=== PATIENT | male | born 1955 | race Caucasian/White ===

== ENCOUNTER 2016-12-25 16:24 | Inpatient (IN) ==
[2016-12-25] MEDS ORDERED: methylPREDNISolone 125 MG/2 ML VIAL IVP ONE (16:33)
[2016-12-25] MEDS ORDERED: Ipratropium/Albuterol Neb 3 ML IH ONE (16:33)
[2016-12-25] MEDS ORDERED: Ipratropium/Albuterol Neb 3 ML ONE (16:55)
--- NOTE | 2016-12-25 16:55 | Emergency Department Note ---
Disposition Clinical Impression: Non-STEMI (non-ST elevated myocardial infarction) Dyspnea Qualifiers: Dyspnea type: unspecified Qualified Code(s): R06.00 - Dyspnea, unspecified Disposition: Admitted As Inpatient Condition: Fair Referrals: Sandi Noland CNP [Primary Care Provider] - Forms: ED Satisfaction Letter Time of Disposition: 17:58 SOB HPI - General Chief Complaint: ED Shortness of Breath/Dyspnea Stated Complaint: CJ I think I have Pheumonia Time Seen by Provider: 12/25/16 16:33 Source: patient Mode of arrival: wheelchair Limitations: no limitations Nursing Notes Reviewed: Yes Vital Signs Reviewed: Yes - History of Present Illness 61-year-old who says that hasn't felt well for 4 days with cough congestion says he can't cough anything up. No history of lung problems did smoke in the past but has not smoked for several years. Pt Subjective Complaint: shortness of breath, cough Onset (ago): day(s) Context: recent illness Severity: moderate Consistency/Duration: constant Improves with: nothing Worsens with: nothing Associated symptoms: Reports: fever, cough Treatment prior to arrival: none Cough present: Yes Cough Description: Involuntary - Related Data Home Medications Medication Instructions Recorded Confirmed Chlorthalidone 25 mg PO DAILY 07/08/15 12/25/16 Ergocalciferol (VITAMIN D2) 50,000 unit PO QWEEK 07/08/15 12/25/16 [Vitamin D2 (50,000 UNIT)] FLUoxetine HCl [Prozac] 20 mg PO DAILY 07/08/15 12/25/16 Furosemide [Lasix] 40 mg PO DAILY PRN 07/08/15 12/25/16 Atorvastatin [Lipitor] 40 mg PO HS 12/25/16 12/25/16 Gabapentin [Neurontin] 300 mg PO TID 12/25/16 12/25/16 Insulin Glargine,Hum.rec.anlog 25 unit SQ QPM 12/25/16 12/25/16 [Lantus Solostar] Insulin Glargine,Hum.rec.anlog 35 unit SQ QAM 12/25/16 12/25/16 [Lantus Solostar] Insulin LISPRO [HumaLOG] 0 unit SQ TIDWM 12/25/16 12/25/16 Metformin HCl [Metformin HCl ER] 500 mg PO BID 12/25/16 12/25/16 Metoprolol [Lopressor] 100 mg PO BID 12/25/16 12/25/16 OxyCODONE Immed Rel [Roxicodone 5 5 mg PO QID 12/25/16 12/25/16 MG] Allergies Allergy/AdvReac Type Severity Reaction Status Date / Time No Known Allergies Allergy Verified 07/08/15 12:30 All systems ED: reviewed and negative except as stated. Constitutional: Denies: fever, chills, weakness, weight change Eyes: Denies: eye pain, eye discharge, vision change ENT ED: Denies: ear pain, throat pain, dental pain, hearing loss, epistaxis, congestion, dysphagia Cardiovascular: Denies: chest pain, palpitations, dyspnea on exertion, edema, syncope Respiratory: Reports: cough, dyspnea, wheezes. Denies: hemoptysis, stridor Gastrointestinal: Denies: abdominal pain, nausea, vomiting, diarrhea, constipation, hematemesis, melena, hematochezia Genitourinary: Denies: urgency, dysuria, frequency, hematuria Musculoskeletal: Denies: back pain, neck pain, arthralgia, myalgia Integumentary: Denies: rash, abrasion, lesions Neurological: Denies: headache, weakness, numbness, paresthesias, confusion, abnormal gait, vertigo Psychiatric: Denies: anxiety, depression, suicidal thoughts, homicidal thoughts , auditory hallucinations, visual hallucinations Endocrine: Denies: fatigue Hematological/Lymphatic: Denies: easy bleeding, easy bruising Allergic/Immunologic: Denies: facial swelling, urticaria Past Medical History - Past Medical History Medical history: Reports: diabetes, hyperlipidemia, renal disease, venous stasis Surgical history: Reports: vasectomy Psychiatric history: Reports: no psych history - Social History Smoking Status: Former smoker Smokeless Tobacco Status: Yes (0.5 can per day) Alcohol use: Reports: none Drug use: Reports: none Physical Exam - General Limitations: no limitations General appearance: alert - Head Head exam: atraumatic, normocephalic, normal inspection - Eye Eye exam: Present: normal appearance, PERRL, EOMI - ENT ENT exam: normal exam, normal oropharynx, mucous membranes moist - Neck Neck exam: Present: normal inspection, full ROM, trachea midline - Chest Chest inspection: Present: normal inspection, symmetric chest wall rise - Respiratory Respiratory exam: Present: wheezes - Cardiovascular Cardiovascular exam: Present: regular rate, normal rhythm, normal heart sounds - Abdominal Exam Abdominal exam: Present: soft, Non-Tender. Absent: tenderness, distention, guarding, rebound, rigidity - Extremities Exam Extremities exam: Present: normal inspection, full ROM. Absent: tenderness, pedal edema - Expanded Lower Extremity Exam Neurovascular/Tendon exam: Absent: motor deficit, sensory deficit, tendon deficit Gait: observed and normal - Back Exam Back exam: Present: normal inspection, full ROM. Absent: tenderness - Neurological Exam Neurological exam: Present: alert, oriented X3 - Psychiatric Psychiatric exam: Present: normal affect, normal mood - Skin Skin exam: Present: warm, dry, intact, normal color Course - Reevaluation(s) Reevaluation #1: 61-year-old who comes in with increasing shortness of breath clinically he has increasing dyspnea. PH does show CO2 retention he was placed on BiPAP with marked improvement in his symptoms. Patient denies any chest pain and EKG shows no acute ST segment elevation. The troponin is +0.36 cardiology consult recommends heparin and follow troponins. Time: 17:56 - Consultations Consultation #1: Discussed with Dr. David Titus cardiology heparinize and follow troponins. Time: 17:57 Consultation #2: Discussed with sandra Anguiano. Time: 18:51 Vital Signs Temperature 97.9 F 12/25/16 16:26 Pulse Rate 70 12/25/16 16:26 Respiratory Rate 22 12/25/16 16:26 Blood Pressure 107/64 12/25/16 16:26 O2 Sat by Pulse Oximetry 80 12/25/16 16:26 Temperature 97.9 F 12/25/16 16:26 Pulse Rate 61 12/25/16 17:50 Respiratory Rate 20 12/25/16 17:50 Blood Pressure 133/75 12/25/16 17:50 O2 Sat by Pulse Oximetry 100 12/25/16 17:50 Oxygen Delivery Oxygen Delivery Bipap Shortness of Breath/Dyspnea - Lab Data Result diagrams: 12/25/16 17:12 12/25/16 17:12 Lab Results 12/25/16 12/25/16 12/25/16 Range/Units 17:11 17:12 17:12 WBC 12.2 H (4.3-11.1) K/mcL RBC 4.71 (4.19-5.50) M/mcL Hgb 12.7 L (12.9-16.9) g/dL Hct 43.4 (37.5-50.1) % MCV 92.1 (83.0-100.0) fL MCH 27.0 L (28.0-33.3) pg MCHC 29.3 L (31.6-35.5) g/dL RDW 14.6 H (11.5-14.5) % Plt Count 348 (140-400) K/mcL MPV 10.8 (9.4-12.4) fL Immature Gran % 2.4 (0-4) % Seg Neutrophils % 63.7 % Lymphocytes % 21.6 % Monocytes % 10.3 % Eosinophils % 1.2 % Basophils % 0.8 % Neutrophils # 7.8 (1.6-8.9) K/mcL Lymphocytes # 2.6 (0.6-4.6) K/mcL Monocytes # 1.3 (0.0-1.3) K/mcL Eosinophils # 0.2 (0.0-0.6) K/mcL Basophils # 0.1 (0.0-0.2) K/mcL Nucleated RBCs/100 WBC 0.5 H (0) /100 WBC PT (9.4-12.1) Seconds INR APTT (26.0-36.0) Seconds ABG pH 7.21 L (7.32-7.45) pH Units ABG pCO2 71 H* (35-45) mmHg ABG pO2 82 L (85-104) mmHg ABG HCO3 28.4 H (21-27) mEQ/L ABG Total CO2 30.6 H (20-26) mEq/L ABG O2 Saturation 93 L (95-98) % ABG Base Excess -1.2 (-2.0 to 3.0) mEq/L Liter Flow 8 L/MIN Blood Gas Modality NC Inspired O2 48 % Sodium 135 L (136-145) mEq/L Potassium 5.0 H (3.5-4.5) mEq/L Chloride 99 (98-109) mEq/L Carbon Dioxide 25 (19-29) mEq/L BUN 55 H (8-26) mg/dL Creatinine 2.51 H (0.72-1.25) mg/dL Est GFR ( Amer) 32 L (> 60) Est GFR (Non-Af Amer) 26 L (> 60) BUN/Creatinine Ratio 22 (6-26) Glucose 333 H (70-99) mg/dL Calculated Osmolality 308 H (280-300) Lactic Acid (0.5-2.2) mmol/L Calcium 8.3 L (8.6-10.8) mg/dL Total Bilirubin 0.4 (0.2-1.2) mg/dL Direct Bilirubin 0.1 (0.0-0.5) mg/dL Indirect Bilirubin 0.3 (0.0-1.2) mg/dL AST 42 H (5-34) Units/L ALT 42 (0-55) Units/L Alkaline Phosphatase 130 H (38-126) Units/L Troponin I (0-0.03) ng/mL B-Natriuretic Peptide (0-100) pg/mL Serum Total Protein 7.8 (6.0-8.3) g/dL Albumin 2.7 L (3.5-5.0) g/dL Globulin 5.1 H (2.4-3.5) g/dL Albumin/Globulin Ratio 0.5 L (1.1-2.2) 12/25/16 12/25/16 12/25/16 Range/Units 17:12 17:12 17:12 WBC (4.3-11.1) K/mcL RBC (4.19-5.50) M/mcL Hgb (12.9-16.9) g/dL Hct (37.5-50.1) % MCV (83.0-100.0) fL MCH (28.0-33.3) pg MCHC (31.6-35.5) g/dL RDW (11.5-14.5) % Plt Count (140-400) K/mcL MPV (9.4-12.4) fL Immature Gran % (0-4) % Seg Neutrophils % % Lymphocytes % % Monocytes % % Eosinophils % % Basophils % % Neutrophils # (1.6-8.9) K/mcL Lymphocytes # (0.6-4.6) K/mcL Monocytes # (0.0-1.3) K/mcL Eosinophils # (0.0-0.6) K/mcL Basophils # (0.0-0.2) K/mcL Nucleated RBCs/100 WBC (0) /100 WBC PT (9.4-12.1) Seconds INR APTT (26.0-36.0) Seconds ABG pH (7.32-7.45) pH Units ABG pCO2 (35-45) mmHg ABG pO2 (85-104) mmHg ABG HCO3 (21-27) mEQ/L ABG Total CO2 (20-26) mEq/L ABG O2 Saturation (95-98) % ABG Base Excess (-2.0 to 3.0) mEq/L Liter Flow L/MIN Blood Gas Modality Inspired O2 % Sodium (136-145) mEq/L Potassium (3.5-4.5) mEq/L Chloride (98-109) mEq/L Carbon Dioxide (19-29) mEq/L BUN (8-26) mg/dL Creatinine (0.72-1.25) mg/dL Est GFR ( Amer) (> 60) Est GFR (Non-Af Amer) (> 60) BUN/Creatinine Ratio (6-26) Glucose (70-99) mg/dL Calculated Osmolality (280-300) Lactic Acid 2.5 H (0.5-2.2) mmol/L Calcium (8.6-10.8) mg/dL Total Bilirubin (0.2-1.2) mg/dL Direct Bilirubin (0.0-0.5) mg/dL Indirect Bilirubin (0.0-1.2) mg/dL AST (5-34) Units/L ALT (0-55) Units/L Alkaline Phosphatase (38-126) Units/L Troponin I 0.36 H* (0-0.03) ng/mL B-Natriuretic Peptide 318 H (0-100) pg/mL Serum Total Protein (6.0-8.3) g/dL Albumin (3.5-5.0) g/dL Globulin (2.4-3.5) g/dL Albumin/Globulin Ratio (1.1-2.2) 12/25/16 Range/Units 17:12 WBC (4.3-11.1) K/mcL RBC (4.19-5.50) M/mcL Hgb (12.9-16.9) g/dL Hct (37.5-50.1) % MCV (83.0-100.0) fL MCH (28.0-33.3) pg MCHC (31.6-35.5) g/dL RDW (11.5-14.5) % Plt Count (140-400) K/mcL MPV (9.4-12.4) fL Immature Gran % (0-4) % Seg Neutrophils % % Lymphocytes % % Monocytes % % Eosinophils % % Basophils % % Neutrophils # (1.6-8.9) K/mcL Lymphocytes # (0.6-4.6) K/mcL Monocytes # (0.0-1.3) K/mcL Eosinophils # (0.0-0.6) K/mcL Basophils # (0.0-0.2) K/mcL Nucleated RBCs/100 WBC (0) /100 WBC PT 13.5 H (9.4-12.1) Seconds INR 1.2 APTT 28.0 (26.0-36.0) Seconds ABG pH (7.32-7.45) pH Units ABG pCO2 (35-45) mmHg ABG pO2 (85-104) mmHg ABG HCO3 (21-27) mEQ/L ABG Total CO2 (20-26) mEq/L ABG O2 Saturation (95-98) % ABG Base Excess (-2.0 to 3.0) mEq/L Liter Flow L/MIN Blood Gas Modality Inspired O2 % Sodium (136-145) mEq/L Potassium (3.5-4.5) mEq/L Chloride (98-109) mEq/L Carbon Dioxide (19-29) mEq/L BUN (8-26) mg/dL Creatinine (0.72-1.25) mg/dL Est GFR ( Amer) (> 60) Est GFR (Non-Af Amer) (> 60) BUN/Creatinine Ratio (6-26) Glucose (70-99) mg/dL Calculated Osmolality (280-300) Lactic Acid (0.5-2.2) mmol/L Calcium (8.6-10.8) mg/dL Total Bilirubin (0.2-1.2) mg/dL Direct Bilirubin (0.0-0.5) mg/dL Indirect Bilirubin (0.0-1.2) mg/dL AST (5-34) Units/L ALT (0-55) Units/L Alkaline Phosphatase (38-126) Units/L Troponin I (0-0.03) ng/mL B-Natriuretic Peptide (0-100) pg/mL Serum Total Protein (6.0-8.3) g/dL Albumin (3.5-5.0) g/dL Globulin (2.4-3.5) g/dL Albumin/Globulin Ratio (1.1-2.2) Critical Care Time Critical Care Time: Yes Total Critical Care Time: 30 Attestation: The high probability of a clinically significant, sudden or life threatening deterioration of the [cardiovascular] system(s) required my full and direct attention, intervention and personal management. The aggregate critical care time was [30] minutes. This time is in addition to time spent performing reported procedures but includes the following: [x] Data Review and interpretation [x] Patient assessment and monitoring of vital signs [x] Documentation [x] Medication orders and management
[2016-12-25 16:59] LABS: ABG TCO2 30.6 mEq/L (20-26)
[2016-12-25 17:21] LABS: ABG Base Excess -1.2 mEq/L (-2.0 to 3.0); ABG HCO3 28.4 mEQ/L (21-27); ABG Oxygen Saturation 93 % (95-98); ABG PH 7.21 pH Units (7.32-7.45); ABG PO2 82 mmHg (85-104)
[2016-12-25 17:25] LABS: ABG PCO2 71 mmHg (35-45)
[2016-12-25 17:26] LABS: Blood Gas FiO2 48 %; Blood Gas Liter Flow 8 L/MIN
[2016-12-25 17:27] LABS: INR 1.2; Prothrombin Time 13.5 Seconds (9.4-12.1)
[2016-12-25 17:32] LABS: Basophils # 0.1 K/mcL (0.0-0.2); Basophils % 0.8 %; Eosinophils # 0.2 K/mcL (0.0-0.6); Eosinophils % 1.2 %; Hematocrit 43.4 % (37.5-50.1); Hemoglobin 12.7 g/dL (12.9-16.9); Immature Granulocytes % 2.4 % (0-4); Lymphocytes # 2.6 K/mcL (0.6-4.6); Lymphocytes % 21.6 %; Mean Corpuscular HGB Conc 29.3 g/dL (31.6-35.5); Mean Corpuscular Volume 92.1 fL (83.0-100.0); Mean Platelet Volume 10.8 fL (9.4-12.4); Monocytes # 1.3 K/mcL (0.0-1.3); Monocytes % 10.3 %; Neutrophils # 7.8 K/mcL (1.6-8.9); Nucleated Red Blood Cells 0.5 /100 WBC (0); Platelet Count 348 K/mcL (140-400); Red Blood Count 4.71 M/mcL (4.19-5.50); Red Cell Distribution Width 14.6 % (11.5-14.5); Segmented Neutrophils % 63.7 %
[2016-12-25 17:51] LABS: Albumin 2.7 g/dL (3.5-5.0); Albumin/Globulin Ratio 0.5 (1.1-2.2); Bilirubin,Direct 0.1 mg/dL (0.0-0.5); Bilirubin,Indirect 0.3 mg/dL (0.0-1.2); Bilirubin,Total 0.4 mg/dL (0.2-1.2); Calcium 8.3 mg/dL (8.6-10.8); Globulin 5.1 g/dL (2.4-3.5); Total Protein 7.8 g/dL (6.0-8.3)
[2016-12-25] MEDS ORDERED: *HR* Heparin 5,000 UNIT/ML VIAL IVP PRN ×2 (17:53)
[2016-12-25] MEDS ORDERED: *HR* Heparin 5,000 UNIT/ML VIAL IVP ONE (17:53)
[2016-12-25] MEDS ORDERED: Heparin 25,000 UNIT/500 ML D5W 25,000 UNIT/500 ML MLS IVC SCH (18:00)
[2016-12-25 19:41] LABS: VBG HCO3 30.6 mEq/L (21-27); VBG PH 7.23 pH Units (7.32-7.42)
[2016-12-25] MEDS ORDERED: Naloxone 0.4 MG/ML INJ IVP PRN (20:54)
[2016-12-25] MEDS ORDERED: Furosemide 40 MG TABLET PO PRN (20:54)
[2016-12-25] MEDS ORDERED: Dextrose Gel 15 GM PO PRN ×2 (20:56)
[2016-12-25] MEDS ORDERED: D5% in Water 1,000 ML IVC PRN (20:56)
[2016-12-25] MEDS ORDERED: *HR* Dextrose 50 % in Water (Syg) 50 ML SYRINGE IVP PRN (20:56)
--- NOTE | 2016-12-25 20:59 | Internal Med History&Physical ---
Date of Encounter: 12/25/16 Time of Encounter: 20:58 Assessment and Plan (1) Non-STEMI (non-ST elevated myocardial infarction) Current visit: Yes Status: Acute consult cards, now on heparin gtt, trend trop, Check TTE, NPO in case procedure such as LHC in the a.m (2) DMII (diabetes mellitus, type 2) Current visit: Yes Status: Acute ISS, continue insulin, half dose for evening given NPO overnight Qualifiers: Diabetes mellitus complication status: without complication Qualified Code( s): E11.9 - Type 2 diabetes mellitus without complications; Z79.4 - residential ( current) use of insulin (3) SOB (shortness of breath) Current visit: Yes Status: Acute suspect chest pain equivalent ? NIPPV in the ED - supportive. johnathon (4) Morbid obesity Current visit: No Status: Chronic education provided Internal Medicine - H&P: HPI Chief complaint: Shortness of breath History of present illness: Mr. Stone is a 61 year old male history of diabetes type 2, hypertension, depression, who presents with acute onset shortness of breath in the last few days since Thursday. He felt like he was getting cold. He denies any active chest pain or chest pain prior chest chest subjective shortness of breath. At baseline he uses a wheelchair BOUND, and has been having increasing shortness of breath on exertion when he was transferring from wheelchair to bed. Review of systems noted nonspecific abdominal cramps, spasms that he has noted. Family reported history of sepsis in the past. In the ED EKG reviewed by self demonstrated rate of 70, T-wave depression abnormal EKG. Trop in the ED was elevated 0.36. This x-ray with mild atelectasis on the right . ED spoke with cardiology who recommended an STEMI management with heparin drip. Past Med Surg Social Fam HX - Past Medical History Medical history: diabetes, hyperlipidemia, renal disease, venous stasis Psychiatric history: no psych history - Past Surgical History Surgical History: vasectomy - Social History Smoking Status: Former smoker Smokeless Tobacco Status: Yes (0.5 can per day) Alcohol use: none Drug use: none - Additional Family History Additional family history: Hypertension Internal Medicine - H&P: Meds Chlorthalidone 25 mg PO DAILY 07/08/15 [History] Ergocalciferol (VITAMIN D2) [Vitamin D2 (50,000 UNIT)] 50,000 unit PO QWEEK [History] FLUoxetine HCl [Prozac] 20 mg PO DAILY 07/08/15 [History] Furosemide [Lasix] 40 mg PO DAILY PRN 07/08/15 [History] Atorvastatin [Lipitor] 40 mg PO HS 12/25/16 [History] Gabapentin [Neurontin] 300 mg PO TID 12/25/16 [History] Insulin Glargine,Hum.rec.anlog [Lantus Solostar] 25 unit SQ QPM 12/25/16 [ History] Insulin Glargine,Hum.rec.anlog [Lantus Solostar] 35 unit SQ QAM 12/25/16 [ History] Insulin LISPRO [HumaLOG] 0 unit SQ TIDWM 12/25/16 [History] Metformin HCl [Metformin HCl ER] 500 mg PO BID 12/25/16 [History] Metoprolol [Lopressor] 100 mg PO BID 12/25/16 [History] OxyCODONE Immed Rel [Roxicodone 5 MG] 5 mg PO QID 12/25/16 [History] Allergies No Known Allergies Allergy (Verified 07/08/15 12:30) All Systems PM: A 10-system review of systems was performed and is negative for pertinent findings except as documented above in the HPI. Review of systems: ROS 14 point review of systems reviewed as best as possible given presentation. Pertinent positive or negative as per HPI or otherwise reviewed as negative - Constitutional Vitals: Temp Pulse Resp BP Pulse Ox 97.9 F 61 25 150/85 95 12/25/16 16:26 12/25/16 17:50 12/25/16 20:10 12/25/16 19:19 12/25/16 20:10 Exam: General - AAO x 3. Morbid obesity Psych - Appropriate affect/speech. No agitation Eyes - LYSSA. Eye lids intact. No scleral icterus ENT - Oral mucosa pink, dentition intact. External ear clear/dry/intact. No thyromegaly Lymphatics - No cervical/inguinal lympadenopathy Neuro - No gross peripheral or central neuro deficits with intact CN 2-12 exam Heart - Sinus. RRR. S1 and S2 present. No added HS/murmurs appreciated. No elevated JVD appreciated. No calf swellings/erythema Lung - Adequate air entry b/l, No crackes/wheezes appreciated GI - Soft, non-tender. No hepatosplenomegaly/ascities. BS+ - No CVA/suprapubic tenderness or palpable bladder distension Skin - venous stasis changes on lower extremity MSK - Joints with normal ROM. No joint swellings Internal Med - H&P Results - Labs CBC & Chem 7: 12/25/16 17:12 12/25/16 17:12 - ABG Interpretation ABG results: 12/25/16 19:30 VBG pH 7.23 L VBG pCO2 73 H VBG pO2 35 VBG HCO3 30.6 H
[2016-12-25] MEDS ORDERED: Insulin LISPRO 300 UNITS/3 ML VIAL SQ SCH (21:00)
[2016-12-25] MEDS: Gabapentin 300 MG CAPSULE PO SCH (21:30)
[2016-12-25] MEDS: Metoprolol 100 MG TABLET PO SCH (21:30)
[2016-12-25] MEDS: *HR* OxyCODONE Immed Rel 5 MG TABLET PO SCH (21:30)
[2016-12-26 06:45] LABS: Hematocrit 41.5 % (37.5-50.1); Hemoglobin 12.5 g/dL (12.9-16.9); Mean Corpuscular HGB Conc 30.1 g/dL (31.6-35.5); Mean Corpuscular Hemoglobin 27.3 pg (28.0-33.3); Mean Corpuscular Volume 90.6 fL (83.0-100.0); Mean Platelet Volume 10.8 fL (9.4-12.4); Platelet Count 360 K/mcL (140-400); Red Blood Count 4.58 M/mcL (4.19-5.50); Red Cell Distribution Width 14.6 % (11.5-14.5)
[2016-12-26 06:56] LABS: Calcium 8.4 mg/dL (8.6-10.8); Magnesium 2.1 mg/dL (1.6-2.6)
[2016-12-26 06:59] LABS: Potassium 6.2 mEq/L (3.5-4.5)
[2016-12-26] MEDS ORDERED: 0.9 % Sodium Chloride 1,000 ML ONE (07:41)
[2016-12-26] MEDS: Insulin LISPRO 300 UNITS/3 ML VIAL SQ SCH ×4 (07:44→21:50)
[2016-12-26] MEDS ORDERED: 0.9 % Sodium Chloride 1,000 ML IVC SCH ×2 (07:45→13:45)
[2016-12-26] MEDS: *HR* OxyCODONE Immed Rel 5 MG TABLET PO SCH ×4 (07:51→21:47)
[2016-12-26] MEDS: Metoprolol 100 MG TABLET PO SCH (07:52)
[2016-12-26] MEDS: Gabapentin 300 MG CAPSULE PO SCH ×3 (07:52→21:48)
[2016-12-26] MEDS: FLUoxetine 20 MG CAPSULE PO SCH (07:52)
[2016-12-26] MEDS: Insulin DETEMIR 100 UNIT/ML X5UNITS SQ SCH (08:02)
[2016-12-26] MEDS ORDERED: Perflutren Lipid Microsphere 1.3 ML in 0.9 % Sodium Chloride 8.7 ML IVP ONE (08:46)
[2016-12-26] MEDS ORDERED: Insulin DETEMIR 100 UNIT/ML X5UNITS SQ SCH ×2 (09:00→21:00)
[2016-12-26] MEDS ORDERED: Insulin LISPRO 300 UNITS/3 ML VIAL SQ SCH (10:15)
--- NOTE | 2016-12-26 11:15 | Cardiology Consult Note ---
<Jigar Tierney - Last Filed: 12/26/16 14:29> Date of Encounter: 12/26/16 Time of Encounter: 10:30 Assessment and Plan (1) Elevated troponin Current Visit: Yes Status: Acute Patient has elevated troponin of 0.36 on admission. He denies any recent chest pain or discomfort. This is in the setting of acute respiratory failure and acute kidney injury. Also patient has symptoms and findings that could suggest heart failure. which could also be a reason for elevated troponins. Troponins are trending down. No significant EKG changes. However notable for low voltage. PAtient dose have multiple risk factors for CAD including HTN, HLD, DM, and 35 pack year history of smoking. Patient is severely deconditioned at baseline with very little activity as well. Recommendations: Discontinue heparin gtt. Patient is high risk for CAD. We would recommend Lexiscan once his pulmonary issues have resolved. Patient takes ASA at home and we will resume this . Discontinue metoprolol given the patients bradycardia. Start Coreg 12.5 mg BID TTE is poor quality and nondiagnositic. continue to reduce modifiable risk factors such as HTN, HLD, and DM control. continue lipitor. Recommend a heart healthy diet with fluid and sodium restriction. Patient is severely deconditioned. Would recommend PT/OT consult Patient is unsure of what testing he has had in the past. Recommend obtaining records of any prior testing from [facility] Thank you for the consultation and the opportunity to participate in this patients care. We will continue to follow along with you. (2) Acute heart failure Current Visit: Yes Status: Suspected Patient is having orthopnea, worsening lower extremity edema and has an elevated BNP on admission. Caoncerning for possible heart failure. However picture is complicated as he has acute kidney injury and reports decreased urine output at home. Patient is hypervolemic on exam. Recommendations: Discontinue IV fluids. Start lasix 40 mg IV BID. I suspect his renal injury is related to his volume overloaded state and should improve with diuresis. continue to follow renal function closely. Continue to monitor and replace electrolytes as needed. Fluid restriction of 2L daily, strict I's and O's and elevation of the feet have been ordered as well. TTE is poor quality and non diagnostic. Patient also had a TTE with definity in June 2016 which was also nondiagnostic. Qualifiers: Heart failure type: unspecified heart failure type Qualified Code(s): I50.9 - Heart failure, unspecified (3) Acute hypoxemic respiratory failure Current Visit: Yes Status: Acute Etiology is likely multifactorial. Patient has 35 pack year of smoking use. 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 Would suspect COPD. Also suspect sleep disorder breathing and possibly OHS as well. Additionally patient may have a viral URI vs. bronchitis given his recent sick contacts and exposures. Patient reports significant wheezing at home as well. However lungs are clear on exam currently. Although exam is somewhat limited by habitus. If not improving may also consider PE given the patient lower extremity edema. May consider a VQ scan. Would benefit from outpatient PFT. recommend nocturnal pulse ox. management per primary team. (4) Acute respiratory failure with hypercapnia Current Visit: Yes Status: Acute patient has acute on chronic respiratory failure with hypercapnia and hypoxemia. Etiology is likely multifactorial as stated above. (5) Bradycardia Current Visit: Yes Status: Acute etiology unclear. possibly from metoprolol. Dose not currently seem to be symptomatic ( unclear as he reported some mild dizziness at home and has LUISITO) We will DC Metoprolol and add coreg to his regimen instead. check TSH. continue telemetry. (6) Hypertension Current Visit: Yes Status: Acute currently above goal ( systolic 135 for diabetic). DC metoprolol due to bradycardia. Start coreg 12.5 mg BID. Start Imdur 30 mg daily. continue to monitor closely. Qualifiers: Qualified Code(s): I10 - Essential (primary) hypertension (7) Uncontrolled diabetes mellitus Current Visit: Yes Status: Acute Last Hg A1C on 07/31/16 was 11.1. serum glucose also markedly elevated this admission. Management per primary team. Qualifiers: Qualified Code(s): E11.65 - Type 2 diabetes mellitus with hyperglycemia (8) Acute kidney injury Current Visit: Yes Status: Acute etiology unclear at this time. possibly from volume overload. SCr is trending down. If not improving may consider nephrology consultation. continue to monitor closely. (9) Hyperkalemia Current Visit: Yes Status: Acute K currently 6.2 patient has received Kayexalate and insulin this AM. Recommend following closely. If still elevated would repeat EKG to make sure there are no EKG changes. (10) Respiratory acidosis Current Visit: Yes Status: Acute patient is alert and dose not exhibit signs of CO2 narcosis at this time. would consider having patient wear bipap while asleep. (11) Weight gain Current Visit: Yes Status: Acute PAtient has had deconditioning after previous hospitalization last year. Likely from a combination of poor activity, poor diet and volume overload. recommend weight loss. (12) Physical deconditioning Current Visit: Yes Status: Acute recommend PT/OT consult (13) Tobacco abuse Current Visit: Yes Status: Acute patient is a former smoker with 35 pack year history. He state he quit 10 years ago. However he continues to use chewing tobacco. advise cessation. (14) Morbid obesity with BMI of 50.0-59.9, adult Current Visit: Yes Status: Acute advise weight loss (15) DVT prophylaxis Current Visit: Yes Status: Acute We will start the patient on SQ heparin. Discussion w patient/family: The assessment and plan as outlined above was discussed with the patient and/or family members who expressed understanding and agreement. All questions were answered. Thank you for involving us in the care of your patient. Please call with any questions. History of Present Illness Consult date: 12/26/16 Requesting physician: Rivas Burden Consult reason: elevated troponin/ possible NSTEMI. Chief complaint: dyspnea History of present illness: Mr. Guadalupe is a 61 year old male with past medical history of uncontrolled IDDM, HTN, HLD. Who was admitted to [facility] on 12/25/16 with acute respiratory failure and elevated troponins. Today Mr. Guadalupe states that He was began having onset of dyspnea on Thursday. He states that this happened after being exposd to family members with upper respiratory symptoms on Thursday. HE states that he had a sore throat, rhinorhea , sinus pressure and developed wheezing, cough ( productive), and dyspnea at rest and worsened by exertion. . He also admits to increased lower extremity edema over the past 3 weeks that did not resolved with lasix. He admits to orthopnea. He sleeps in a hospital bed and has had to increase the elevation over the past few days. He denies any chest pain or discomfort. He denies any syncope, presyncope, palpitations. HE admits to some mild dizziness 3 days ago after standing. The dizziness resolved very quickly and he has had none since. He denies any fever, chills or night sweats. Denies hemoptysis. He states that his overall health has declined over the past year. He has become inactive. He has had exertional dyspnea over the past 6 months that has been progressively worsening. He states he gets out of breath going to the bathroom now. He states that he has also gained approximately 50 pounds over the past year. Past Med Surg Social Fam HX - Past Medical History Medical history: diabetes, hyperlipidemia, renal disease, venous stasis Psychiatric history: no psych history - Past Surgical History Surgical History: vasectomy - Social History Smoking Status: Former smoker Packs per day: 1ppd for 35 years quit 10 years ago but still uses oral tobacco. Smokeless Tobacco Status: Yes (0.5 can per day) Alcohol use: none Drug use: none Occupational status: previously employed Current living situation: Home, With Family Activity Level: Wheelchair bound, Mostly sedentary Recent Out of Country Travel Within the Last 8 Weeks: No Exposure or Possible Exposure to Illness During Travel: Yes (family had URI symptoms on thursday. 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 - Family History Mother Hx Family Cancer: Yes (unknown which type) Father Hx Family Medical Disorders: Yes (COPD) Medications and Allergies Chlorthalidone 25 mg PO DAILY 07/08/15 [History] Ergocalciferol (VITAMIN D2) [Vitamin D2 (50,000 UNIT)] 50,000 unit PO QWEEK [History] FLUoxetine HCl [Prozac] 20 mg PO DAILY 07/08/15 [History] Furosemide [Lasix] 40 mg PO DAILY PRN 07/08/15 [History] Atorvastatin [Lipitor] 40 mg PO HS 12/25/16 [History] Gabapentin [Neurontin] 300 mg PO TID 12/25/16 [History] Insulin Glargine,Hum.rec.anlog [Lantus Solostar] 25 unit SQ QPM 12/25/16 [ History] Insulin Glargine,Hum.rec.anlog [Lantus Solostar] 35 unit SQ QAM 12/25/16 [ History] Insulin LISPRO [HumaLOG] 0 unit SQ TIDWM 12/25/16 [History] Metformin HCl [Metformin HCl ER] 500 mg PO BID 12/25/16 [History] Metoprolol [Lopressor] 100 mg PO BID 12/25/16 [History] OxyCODONE Immed Rel [Roxicodone 5 MG] 5 mg PO QID 12/25/16 [History] Allergies No Known Allergies Allergy (Verified 07/08/15 12:30) All Systems Review: A 10-system review of systems was performed and is negative for pertinent findings except as documented above in the HPI. - Constitutional Constitutional: fatigue, weight gain (50 pounds in 1 year. ), no anorexia, no frequent falls, no malaise, no night sweats - EENT Eyes: no blurred vision, no loss of vision, no pain Nose, mouth and throat: sinus pain (mild), sore throat (mild), no bleeding gums , no dysphagia, no epistaxis, no mouth pain - Cardiovascular Cardiovascular: as per HPI, dyspnea at rest, dyspnea on exertion, orthopnea, no chest pain at rest, no chest pain with exertion, no irregular heart rhythm, no lightheadedness, no palpitations, no syncope - Respiratory Respiratory: other (as per HPI) - Gastrointestinal Gastrointestinal: abdominal pain (with coughing only. mild. ) - Genitourinary Genitourinary: other (urine color was dark. subjective decrease in output. ), no dysuria, no hematuria - Integumentary Integumentary: no erythema, no rash, no unusual bruising - Neurological Neurological: dizziness (mild. after staning 3 days ago.), no abnormal speech, no syncope, no tingling - Hematological/Lymphatic Hematologic/Lymphatic: no easy bleeding, no easy bruising Physical Examination General: Conversant, No Apparent Distress HEENT: Atraumatic, Normocephaly, Mucus Membranes Moist, Other (poor dentition. ) Neck: No JVD, Normal carotid pulses, Other (large circumference of the chest. ) Cardiac: Reg Rate and Rhythm, Normal S1 and S2, No Murmur, Other (exam is limited by habitus. Distant heart sounds. ) Lungs: Normal Breath Sounds, No Wheeze, Rales, Rhonchi, Other (globally diminished. ) Neuro: Alert and responsive, No focal deficits noted Abdomen: Soft, Non-Tender, Other (mildly distended. Nontender. ) Skin: Other (appears to have stasis dermatitis on the BL LE. with chronic venous stasis changes. ) Extremities: No Clubbing, No Cyanosis, Other (HE has 2+ pittng edema to the level of the knee bilaterally. ) Results 12/26/16 06:17 12/26/16 11:53 Lab Results 12/26/16 08:01 APTT 43.5 H - Imaging and Cardiology Chest Xray: report reviewed, image reviewed Echo: pending - EKG Interpretation EKG results cardiology: personally reviewed, other (sinus rhythm. Has none specific T wave changes in V2 and V3. Notable for low voltage. No ST segment changes.) Consult Discharge Plan - Plan Referrals: Sandi Noland, GEOLOGICAL DRAFTER [Primary Care Provider] - 01/05/17 10:40 am <Navarro Graham - Last Filed: 12/27/16 00:34> Date of Encounter: 12/26/16 Assessment and Plan Discussion w patient/family: The assessment and plan as outlined above was discussed with the patient and/or family members who expressed understanding and agreement. All questions were answered. Thank you for involving us in the care of your patient. Please call with any questions. History of Present Illness History of present illness: Mr. Guadalupe is a 61 year old male All Systems Review: A 10-system review of systems was performed and is negative for pertinent findings except as documented above in the HPI. Physical Examination Vital Signs, Last 4 Hours Temp Pulse Resp BP Pulse Ox 12/26/16 11:26 97.6 F 61 16 157/83 95 Results 12/26/16 06:17 12/26/16 14:04 Lab Results 12/26/16 12/26/16 12/26/16 08:01 11:53 11:53 APTT 43.5 H Sodium 136 Potassium 5.1 H D Chloride 101 Carbon Dioxide 28 BUN 62 H Creatinine 2.12 H Glucose 423 H Calcium 8.5 L Troponin I 0.16 H* - Attending Attestation Pt independently seen and examined, discussed with housestaff, [place] previous records from [facility]. Pt complains of increased shortness of breath, lower extremity edema, and non producdtive coujgh. He reports increasing orthopnea, up to three pillows deangelo evening before admission. Patient reports was unable to walk from sofa to bathroom due to shortness of breath. Shorness of breath has improved since hospital admission. IMP/plan 1. Elevated troponin: Most consisent with type two AK, multple risk factor for CAD, will need stress imaging to evaluate ischemic substrateddd 2. Bra4. dtcardia - will dc metoprolol, begin carvediolol, monitor heart rate response. 3. Hyperension, not well controlled, monitor with increased diuresis 4. Shorntess of breath, improving with diuresis, concerned he may have had PE, CT avoided due to renal risk of contrast, will order lower ext dopplers to rule out DVT 5 Acute on chronic renal faillure, improving 6 Elevated BNP, echocardiogram non diagnostic, very poor cardiac visualiazation , 7 Uncontrolled diabete with markedly elevated blood sugars 8. Morbid obesity, with fifty pound weight gain over last year. 9. Undiagnosed sleep apnea
[2016-12-26 12:27] LABS: VBG HCO3 29.8 mEq/L (21-27)
[2016-12-26 12:31] LABS: VBG PH 7.19 pH Units (7.32-7.42)
[2016-12-26 12:43] LABS: Calcium 8.5 mg/dL (8.6-10.8)
[2016-12-26 12:44] LABS: Potassium 5.1 mEq/L (3.5-4.5)
[2016-12-26 12:54] LABS: Hemoglobin A1C 11.9 %
[2016-12-26] MEDS ORDERED: Insulin Regular, Human 100 UNIT/ML IV PRN (13:25)
[2016-12-26] MEDS ORDERED: *HR* Dextrose 50 % in Water (Syg) 50 ML SYRINGE IVP PRN (13:25)
[2016-12-26] MEDS ORDERED: D5% in 0.45% NACL 1,000 ML IVC PRN (13:25)
[2016-12-26] MEDS: Furosemide 40 MG/4 ML VIAL IVP SCH ×2 (13:27→17:05)
[2016-12-26] MEDS: Isosorbide MONOnitrate (24 HR) 30 MG TAB.ER.24H PO SCH (13:27)
[2016-12-26] MEDS ORDERED: Insulin Human Regular 100 UNIT in 0.9 % Sodium Chloride 100 ML IVC SCH (13:30)
[2016-12-26 14:42] LABS: Calcium 8.7 mg/dL (8.6-10.8); Potassium 5.1 mEq/L (3.5-4.5)
--- NOTE | 2016-12-26 14:45 | Electrocardiograph Report ---
[place] [id number] Test Date: 2016-12-25 Pat Name: Gold Stone Department: 102 Room: 2NE17 Gender: M Prosthodontist: Yenny : 1955 Requested By: Bessy Miller Order Number: [id number] Reading MD: Ban Titus Measurements Intervals [place] Rate: 70 P: -66 VA: 175 QRS: 51 QRSD: 94 T: 27 QT: 388 QTc: 408 Interpretive Statements SINUS RHYTHM INDETERMINATE AXIS LOW QRS VOLTAGE [QRS DEFLECTION < 0.5/1.0 mV IN LIMB/CHEST LEADS] POSSIBLE ANTERIOR MYOCARDIAL INFARCTION [30 ms Q WAVE IN V3/V4, OR R < 0.2 mV IN V4], OF INDETERMINATE AGE Electronically Signed On 12-26-2016 14:43:43 EDT by Ban Titus
[2016-12-26] MEDS: *HR* Heparin 5,000 UNIT/ML VIAL SQ SCH ×2 (17:05→21:48)
--- NOTE | 2016-12-26 17:06 | Internal Med Progress Note ---
Date of Encounter: 12/26/16 Time of Encounter: 10:30 - Assessment and plan (1) Non-STEMI (non-ST elevated myocardial infarction) Current Visit: Yes Status: Acute Assessment and plan: Patient presented with shortness of breath, possible anginal equivalent. Noted to have troponin elevation, peak troponin at 0.36. Has been started on IV heparin drip for anticoagulation. Cardiology consult noted. Held anticoagulation for now. Trying to obtain records from [facility]. Possible nuclear stress test when medically stable. Continue telemetry monitoring and trend troponins. Echocardiogram is a technically difficult and poor quality study, however shows possibly dilated left ventricle with decreased systolic function, mild diastolic dysfunction. (2) Hyperglycemia due to type 2 diabetes mellitus Current Visit: Yes Status: Acute Assessment and plan: Patient is noted to be noncompliant to diet and lifestyle modifications as an outpatient. Hemoglobin A1c noted to be 11.5%. Patient fails to respond to subcutaneous insulin. We will start him on IV insulin drip with every hour Accu -Cheks and IV hydration at this time. Keep nothing by mouth until blood sugars improved. VBG shows decreased the itch at 7.1 although patient has a complicated picture with likely respiratory and metabolic acidosis. Check serum beta hydroxybutyrate and monitor BMP every 4 hourly. Monitor vital signs closely and urine output. Patient is awaiting transfer to stepdown unit to continue insulin drip/DKA protocol. High risk for complications. Qualifiers: Diabetes mellitus mcc insulin use: with mcc use Qualified Code( s): E11.65 - Type 2 diabetes mellitus with hyperglycemia; Z79.4 - FPC ( current) use of insulin (3) Respiratory acidosis Current Visit: Yes Status: Acute Assessment and plan: Patient is noted to have acute hypoxic and hypercapnic respiratory failure, likely related to underlying CHF/obesity hypoventilation. Continue supplemental oxygen, will use noninvasive positive pressure ventilation and monitor ABG. Home oxygen evaluation prior to discharge. (4) Chronic kidney disease Current Visit: Yes Status: Chronic Qualifiers: Chronic kidney disease stage: stage 3 (moderate) Qualified Code(s): N18.3 - Chronic kidney disease, stage 3 (moderate) (5) Morbid obesity Current Visit: Yes Status: Chronic Assessment and plan: Along with significant physical deconditioning. Physical and occupational therapy evaluation when medically stable. (6) DMII (diabetes mellitus, type 2) Current Visit: Yes Status: Chronic Qualifiers: Diabetes mellitus complication status: with kidney complications Diabetes mellitus complication detail: with chronic kidney disease Diabetes mellitus mcc insulin use: with mcc use Chronic kidney disease stage: stage 3 (moderate) Qualified Code(s): E11.22 - Type 2 diabetes mellitus with diabetic chronic kidney disease; N18.3 - Chronic kidney disease, stage 3 ( moderate); Z79.4 - FPC (current) use of insulin (7) CHF (congestive heart failure) Current Visit: Yes Status: Acute Assessment and plan: Likely has undiagnosed and untreated CHF given his chronic pedal edema, elevated BNP. Start Coreg and Lasix per cardiology. Echocardiogram reviewed. He requires IV hydration at this time for hyperglycemia protocol. Qualifiers: Congestive heart failure type: combined Congestive heart failure chronicity : acute on chronic Qualified Code(s): I50.43 - Acute on chronic combined systolic (congestive) and diastolic (congestive) heart failure (8) LUISITO (acute kidney injury) Current Visit: Yes Status: Acute Assessment and plan: Patient is noted to have baseline serum creatinine around 1.1, currently with acute kidney injury-could be related to hyperglycemia/dehydration. Patient needs IV hydration for hyperglycemia, also needs IV Lasix for possible underlying CHF. We will continue with IV hydration for now. - Subjective Interval history: Reports improvement in chest pain and shortness of breath. Reports having chronic leg swelling and uncontrolled blood sugars at home. Feels hungry and requests for food. Blood sugars noted to be very high; - Constitutional Vitals: Temp Pulse Resp BP Pulse Ox 98.1 F 54 16 150/81 95 12/26/16 15:53 12/26/16 15:53 12/26/16 15:53 12/26/16 15:53 12/26/16 15:53 General appearance: Present: A&O X 3, morbidly obese, answers questions appropriately - Respiratory Respiratory exam: Present: decreased breath sounds (Difficult to auscultate likely due to body habitus), CTAB. Absent: accessory muscle use, rales, rhonchi , wheezes - Cardiovascular Cardiovascular exam: Present: RRR, +S1, +S2. Absent: diastolic murmur, gallop, rubs, systolic murmur - GI/Abdominal GI/Abdominal exam: Present: normal bowel sounds, soft (Very obese), no peritoneal signs. Absent: distended, tenderness - Extremities Exam Extremities exam: Present: pedal edema (2+ pitting pedal edema in bilateral lower extremities, extending into lower abdomen), warm, radial pulses palpable and symmetrical. Absent: calf tenderness, cyanotic - Neurological Exam Neurological exam: Present: CN II-XII intact, oriented X3, no focal deficits. Absent: pronater drift, facial droop, speech deficit - Skin Skin exam: Present: dry, erythema (Bilateral anterior leg stasis dermatitis), intact Internal Medicine: Result - Labs CBC & Chem 7: 12/26/16 06:17 12/26/16 14:04 Labs: BMP 12/26/16 12/26/16 11:53 14:04 Sodium 136 138 Potassium 5.1 H D 5.1 H Chloride 101 101 Carbon Dioxide 28 26 BUN 62 H 63 H Creatinine 2.12 H 2.17 H Glucose 423 H 420 H Calcium 8.5 L 8.7 Cardiac Enzymes 12/26/16 Range/Units 11:53 Troponin I 0.16 H* (0-0.03) ng/mL - ABG Interpretation ABG results: ABG ABG pH 7.21 pH Units (7.32-7.45) L 12/25/16 17:11 ABG pCO2 71 mmHg (35-45) H* 12/25/16 17:11 ABG pO2 82 mmHg (85-104) L 12/25/16 17:11 ABG O2 Saturation 93 % (95-98) L 12/25/16 17:11 PT/INR, D-dimer PT 13.5 Seconds (9.4-12.1) H 12/25/16 17:12 - VTE Reasons for not Prescribing Prophylaxis: Not indicated-Anticoagulated or INR therapeutic Consult Discharge Plan - Plan Referrals: Sandi Noland CNP [Primary Care Provider] - 01/05/17 10:40 am
[2016-12-26 17:17] LABS: VBG HCO3 32.1 mEq/L (21-27)
[2016-12-26 17:23] LABS: VBG PH 7.17 pH Units (7.32-7.42)
--- NOTE | 2016-12-26 21:08 | Venous Imaging Report ---
LE Venous Duplex Patient Name:Gold Stone Order Number:[id number] Procedure Date:12/26/2016 Date:1955ge:61 yrs Gender:Male Location:[facility] Room #: 2NE17 [employer] Specialist:Apollo Aldana Referring MD:Jigar Tierney DO fleet manager:None Reading MD:Rich Benites MD , FACS Primary Indications:Edema Secondary Indications: Impressions: Bilateral lower extremity: normal superficial and deep exam. Note: some veins not completely imaged due to anatomic constraints Findings Venous Duplex Results: Right: The right superficial femoral distal and right peroneal veins were not well visualized. Left: The left superficial femoral distal and left peroneal veins were not well visualized. The left distal iliac vein was not assessed. Prior Study: No prior study available for comparison. Lower Extremity Venous Duplex Side Vein Compress Spontaneous Flow Augment Diameter (cm) Depth (cm) Right Distal Iliac Normal Yes Phasic Yes Right Common Femoral Normal Yes Phasic Yes Right Superficial Femoral distal Normal Yes Phasic Yes Right Popliteal Normal Yes Phasic Yes Right Posterior Tibial Normal Yes Phasic Yes Right Peroneal Normal Yes Phasic Yes Right Saphenofemoral [place] Normal Yes Phasic Yes Right Great Saphenous Normal Yes Phasic Yes Right Lesser Saphenous Normal Yes Phasic Yes Left Distal Iliac Normal Yes Phasic Yes Left Common Femoral Normal Yes Phasic Yes Left Superficial Femoral distal Normal Yes Phasic Yes Left Popliteal Normal Yes Phasic Yes Left Posterior Tibial Normal Yes Phasic Yes Left Peroneal Normal Yes Phasic Yes Left Gastrocnemius Normal Yes Phasic Yes Left Saphenofemoral [place] Normal Yes Phasic Yes Left Great Saphenous Normal Yes Phasic Yes Left Lesser Saphenous Normal Yes Phasic Yes Updated by Rich Benites MD, FACS on 12/26/2016 9:03:28 PM Rich Benites MD electronically signed on 12/26/2016 9:03:42 PM with status of Final
[2016-12-27] MEDS: Insulin LISPRO 300 UNITS/3 ML VIAL SQ SCH ×6 (00:36→20:52)
[2016-12-27 00:56] LABS: Basophils # 0.1 K/mcL (0.0-0.2); Basophils % 0.5 %; Eosinophils % 0.2 %; Hematocrit 39.5 % (37.5-50.1); Hemoglobin 11.7 g/dL (12.9-16.9); Immature Granulocytes % 0.8 % (0-4); Immature Platelets 3.6 % (1.1-6.1); Lymphocytes % 17.2 %; Mean Corpuscular HGB Conc 29.6 g/dL (31.6-35.5); Mean Corpuscular Hemoglobin 27.5 pg (28.0-33.3); Mean Corpuscular Volume 92.7 fL (83.0-100.0); Mean Platelet Volume 10.4 fL (9.4-12.4); Monocytes # 1.1 K/mcL (0.0-1.3); Monocytes % 9.4 %; Neutrophils # 8.4 K/mcL (1.6-8.9); Platelet Count 362 K/mcL (140-400); Red Blood Count 4.26 M/mcL (4.19-5.50); Red Cell Distribution Width 14.7 % (11.5-14.5); Segmented Neutrophils % 71.9 %
[2016-12-27 01:10] LABS: Magnesium 2.3 mg/dL (1.6-2.6); Phosphorous 5.3 mg/dL (2.3-4.7)
[2016-12-27 01:11] LABS: Albumin 2.5 g/dL (3.5-5.0); Albumin/Globulin Ratio 0.5 (1.1-2.2); Bilirubin,Total 0.3 mg/dL (0.2-1.2); Calcium 8.3 mg/dL (8.6-10.8); Globulin 4.7 g/dL (2.4-3.5); Total Protein 7.2 g/dL (6.0-8.3)
[2016-12-27 01:13] LABS: Potassium 5.3 mEq/L (3.5-4.5)
[2016-12-27 01:32] LABS: ABG HCO3 32.7 mEQ/L (21-27); ABG Oxygen Saturation 99 % (95-98); ABG PH 7.22 pH Units (7.32-7.45); ABG PO2 133 mmHg (85-104); ABG TCO2 35.2 mEq/L (20-26); Blood Gas FiO2 50 %
[2016-12-27 01:34] LABS: ABG PCO2 80 mmHg (35-45)
[2016-12-27] MEDS: *HR* Heparin 5,000 UNIT/ML VIAL SQ SCH ×3 (04:55→20:28)
[2016-12-27] MEDS: Gabapentin 300 MG CAPSULE PO SCH ×3 (07:59→20:28)
[2016-12-27] MEDS: Insulin DETEMIR 100 UNIT/ML X5UNITS SQ SCH ×2 (07:59→12:30)
[2016-12-27] MEDS: Furosemide 40 MG/4 ML VIAL IVP SCH ×2 (08:00→16:31)
[2016-12-27] MEDS: Isosorbide MONOnitrate (24 HR) 30 MG TAB.ER.24H PO SCH (08:00)
[2016-12-27] MEDS: FLUoxetine 20 MG CAPSULE PO SCH (08:00)
[2016-12-27] MEDS: *HR* OxyCODONE Immed Rel 5 MG TABLET PO SCH ×4 (08:00→20:27)
[2016-12-27] MEDS: Aspirin 325 MG TABLET PO SCH (08:00)
--- NOTE | 2016-12-27 09:36 | Internal Med Progress Note ---
Date of Encounter: 12/27/16 Time of Encounter: 09:00 - Assessment and plan (1) Non-STEMI (non-ST elevated myocardial infarction) Current Visit: Yes Status: Acute Assessment and plan: Patient presented with shortness of breath, possible anginal equivalent. Noted to have troponin elevation, peak troponin at 0.36. Cardiology follow-up appreciated. He did not have cardiac ischemic evaluation at [facility]. Ideally, patient would need ischemic evaluation as an inpatient if his kidney function improves. At this time, continue aspirin, beta abhishek and statin. Telemetry monitoring. Echocardiogram is a technically difficult and poor quality study, however shows possibly dilated left ventricle with decreased systolic function, mild diastolic dysfunction. (2) Hyperglycemia due to type 2 diabetes mellitus Current Visit: Yes Status: Acute Assessment and plan: Has been off IV insulin drip. We will increase basal insulin, continue sliding scale insulin every 4 hours. Continues to have uncontrolled blood sugars although much improved since admission. Diabetic diet. Hemoglobin A1c noted to be close to 12%. Qualifiers: Diabetes mellitus custodial insulin use: with terminal supervisor use Qualified Code( s): E11.65 - Type 2 diabetes mellitus with hyperglycemia; Z79.4 - terminal supervisor ( current) use of insulin (3) Respiratory acidosis Current Visit: Yes Status: Acute Assessment and plan: Unclear etiology. Likely underlying COSMO/OHS and undiagnosed COPD. Ventilation perfusion lung scan shows low probability for PE. Uncertain significance of elevated d-dimer. Pulmonology consult appreciated-will start every 4 hourly scheduled bronchodilators for now. Plan to add steroids only if needed, to avoid hypoglycemia now. Continue noninvasive positive pressure ventilation at least at night. Patient will need outpatient sleep studies. (4) Chronic kidney disease Current Visit: Yes Status: Chronic Qualifiers: Chronic kidney disease stage: stage 3 (moderate) Qualified Code(s): N18.3 - Chronic kidney disease, stage 3 (moderate) (5) Morbid obesity Current Visit: Yes Status: Chronic (6) DMII (diabetes mellitus, type 2) Current Visit: Yes Status: Chronic Qualifiers: Diabetes mellitus complication status: with kidney complications Diabetes mellitus complication detail: with chronic kidney disease Diabetes mellitus custodial insulin use: with terminal supervisor use Chronic kidney disease stage: stage 3 (moderate) Qualified Code(s): E11.22 - Type 2 diabetes mellitus with diabetic chronic kidney disease; N18.3 - Chronic kidney disease, stage 3 ( moderate); Z79.4 - terminal supervisor (current) use of insulin (7) CHF (congestive heart failure) Current Visit: Yes Status: Acute Assessment and plan: Likely has undiagnosed and untreated CHF given his chronic pedal edema, elevated BNP. Continue Coreg and Lasix, fluid restriction. Noted to have good urine output with at least 3 L net negative fluid balance. Echocardiogram reviewed. Qualifiers: Congestive heart failure type: combined Congestive heart failure chronicity : acute on chronic Qualified Code(s): I50.43 - Acute on chronic combined systolic (congestive) and diastolic (congestive) heart failure (8) LUISITO (acute kidney injury) Current Visit: Yes Status: Acute Assessment and plan: Patient is noted to have baseline serum creatinine around 1.1, currently with acute kidney injury-could be related to hyperglycemia/dehydration. He will need IV Lasix at this time with close monitoring of serum creatinine as he appears to be volume overloaded with respiratory acidosis. We will consult nephrology if serum creatinine does not improve. Avoid nephrotoxic agents. - Subjective Interval history: Reports feeling better; no chest pain, improving dyspnea; patient is a poor historian, cannot provide appropriate history; continues to have leg swelling, requiring at least 4L/min via NC and has been on BiPAP overnight; - Constitutional Vitals: Temp Pulse Resp BP Pulse Ox 97.6 F 55 14 128/75 95 12/27/16 07:11 12/27/16 07:11 12/27/16 07:11 12/27/16 07:11 12/27/16 07:11 General appearance: Present: A&O X 3, morbidly obese, answers questions appropriately - Respiratory Respiratory exam: Present: decreased breath sounds (likely due to body habitus) , CTAB. Absent: accessory muscle use, rales, rhonchi, wheezes - Cardiovascular Cardiovascular exam: Present: RRR, +S1, +S2. Absent: diastolic murmur, gallop, rubs, systolic murmur - GI/Abdominal GI/Abdominal exam: Present: normal bowel sounds, soft (very obese, subcutaneous edema+), no peritoneal signs. Absent: distended, tenderness - Extremities Exam Extremities exam: Present: pedal edema (3+ pitting pedal edema B/L), warm, radial pulses palpable and symmetrical. Absent: calf tenderness, cyanotic - Skin Skin exam: Present: dry, intact Additional comments: B/L anterior leg stasis dermatitis Internal Medicine: Result - Labs CBC & Chem 7: 12/27/16 00:48 12/27/16 00:48 Labs: Short CBC 12/27/16 Range/Units 00:48 WBC 11.7 H (4.3-11.1) K/mcL Hgb 11.7 L (12.9-16.9) g/dL Hct 39.5 (37.5-50.1) % Plt Count 362 (140-400) K/mcL Neutrophils # 8.4 (1.6-8.9) K/mcL BMP 12/26/16 12/26/16 12/27/16 11:53 14:04 00:48 Sodium 136 138 138 Potassium 5.1 H D 5.1 H 5.3 H Chloride 101 101 102 Carbon Dioxide 28 26 29 BUN 62 H 63 H 68 H Creatinine 2.12 H 2.17 H 2.22 H Glucose 423 H 420 H 248 H Calcium 8.5 L 8.7 8.3 L Cardiac Enzymes 12/26/16 Range/Units 11:53 Troponin I 0.16 H* (0-0.03) ng/mL Liver Function 12/27/16 Range/Units 00:48 Total Bilirubin 0.3 (0.2-1.2) mg/dL AST 23 (5-34) Units/L ALT 30 (0-55) Units/L Alkaline Phosphatase 111 (38-126) Units/L Albumin 2.5 L (3.5-5.0) g/dL - ABG Interpretation ABG results: ABG ABG pH 7.22 pH Units (7.32-7.45) L 12/27/16 01:25 ABG pCO2 80 mmHg (35-45) H* 12/27/16 01:25 ABG pO2 133 mmHg (85-104) H 12/27/16 01:25 ABG O2 Saturation 99 % (95-98) H 12/27/16 01:25 PT/INR, D-dimer PT 13.5 Seconds (9.4-12.1) H 12/25/16 17:12 D-Dimer 1204 ng/mLFEU (0-500) H 12/27/16 00:48 - VTE Reasons for not Prescribing Prophylaxis: Not indicated-Anticoagulated or INR therapeutic Consult Discharge Plan - Plan Referrals: Sandi Noland, MED [Primary Care Provider] - 01/05/17 10:40 am
--- NOTE | 2016-12-27 10:38 | Pulmonology Consult Note ---
Date of Encounter: 12/27/16 Time of Encounter: 10:33 Assessment and Plan (1) Acute hypoxemic respiratory failure Current Visit: Yes Status: Acute This is a 61-year-old gentleman who presents with acute on chronic hypoxic hypercarbic respiratory failure which is a combination of mild COPD exacerbation likely from URI complicated by underlying heart failure obesity with obesity hypoventilation syndrome and undiagnosed COSMO. Although d-dimer is elevated I am not sure the clinical relevance of this as the pretest probability of pulmonary embolus is low based upon either though well score or modified Gage score. In speaking with the primary hospitalist at is her plan to obtain a VQ scan because he is not a candidate for a CT angiogram if this is the case I would recommend empiric therapeutic infusion of heparin until test results are obtained but again I think that the pretest probability of PE is low based upon 2 independent scoring systems. Otherwise he should be given chemical DVT prophylaxis while inpatient. The course is further complicated by his tenuous renal function unbalance I would favor more active diuresis with close monitoring of kidney function it does not appear that his intake and output have been as well-documented as they could be or should be.Start with IV Lasix 40 mg monitor for effect with at least daily monitoring of renal function and electrolytes including magnesium. For COPD exacerbation please start bronchodilators at least every 6 hours and favor every 4 hours for today and Would favor starting azithromycin if no QTc prolongation 500mg day 1 250mg daily x the next 4 days. Ideally he could get a short course of steroid although with the severity of his underlying hyperglycemia I think that that would make picture more complicated than absolutely necessary right now. Please send sputum culture is obtainable I will defer the management of his hyperglycemia to the primary medicine service. Please obtain a noncontrasted CT scan for more clear picture of underlying parenchymal changes. He has been seen by cardiology and will need outpatient noninvasive ischemic evaluation. Agree with continuation of BiPAP therapy in the present plan for 6-8 hours during the day and the entirety of the night. He will also need a formal outpatient sleep study. He has excellent heart rate control and additional antihypertensive therapy as determined by cardiology service and primary medicine service. We will continue to follow (2) Obesity hypoventilation syndrome Current Visit: Yes Status: Acute (3) Acute kidney injury Current Visit: Yes Status: Acute (4) Acute respiratory failure with hypercapnia Current Visit: Yes Status: Acute (5) CHF (congestive heart failure) Current Visit: Yes Status: Acute Qualifiers: Congestive heart failure type: combined Congestive heart failure chronicity : acute on chronic Qualified Code(s): I50.43 - Acute on chronic combined systolic (congestive) and diastolic (congestive) heart failure (6) DVT prophylaxis Current Visit: Yes Status: Acute (7) Dyspnea Current Visit: Yes Status: Acute Qualifiers: Dyspnea type: unspecified Qualified Code(s): R06.00 - Dyspnea, unspecified (8) Hyperglycemia due to type 2 diabetes mellitus Current Visit: Yes Status: Acute Qualifiers: Diabetes mellitus group home insulin use: with group home use Qualified Code( s): E11.65 - Type 2 diabetes mellitus with hyperglycemia; Z79.4 - custodial ( current) use of insulin (9) Hypertension Current Visit: Yes Status: Acute Qualifiers: Qualified Code(s): I10 - Essential (primary) hypertension (10) Morbid obesity with BMI of 50.0-59.9, adult Current Visit: Yes Status: Acute (11) Non-STEMI (non-ST elevated myocardial infarction) Current Visit: Yes Status: Acute (12) COPD exacerbation Current Visit: Yes Status: Acute History of Present Illness Consult date: 12/27/16 Requesting physician: Jayda Morales Reason for consult: hypoxemia Chief complaint: Shortness of Breath History of present illness: 7-year-old gentleman who presented with shortness of breath non-productive cough and feeling like he "had the flu" approximately 2-3 days before admission. He has a history significant for uncontrolled diabetes and hypertension morbid obesity. On admission was noted to have acute kidney injury and slight troponin elevation without evidence of ST elevation on ECG. Cardiology was consulted and echocardiogram was performed without visualization of LV but patient did have elevated BNP cardiology felt this was all demand ischemia related to hypoxia and acute kidney injury along with chronic heart failure. Since then course has been complicated by acute on chronic respiratory acidosis severe hyperglycemia without DKA and worsening hypoxemia. Pulmonary was consulted to have further recommendations for the management of this patients ongoing shortness of breath and respiratory failure He is a former smoker quitting approximately 20 years ago smoked about 30-35 years about a pack a day. 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 Past Med Surg Social Fam HX - Past Medical History Medical history: diabetes, hyperlipidemia, renal disease, venous stasis Psychiatric history: no psych history - Past Surgical History Surgical History: vasectomy - Social History Smoking Status: Former smoker Packs per day: 1ppd for 35 years quit 10 years ago but still uses oral tobacco. Smokeless Tobacco Status: Yes (0.5 can per day) Alcohol use: none Drug use: none - Family History Mother Hx Family Cancer: Yes (unknown which type) Father Hx Family Medical Disorders: Yes (COPD) Medications and Allergies Chlorthalidone 25 mg PO DAILY 07/08/15 [History] Ergocalciferol (VITAMIN D2) [Vitamin D2 (50,000 UNIT)] 50,000 unit PO QWEEK [History] FLUoxetine HCl [Prozac] 20 mg PO DAILY 07/08/15 [History] Furosemide [Lasix] 40 mg PO DAILY PRN 07/08/15 [History] Atorvastatin [Lipitor] 40 mg PO HS 12/25/16 [History] Gabapentin [Neurontin] 300 mg PO TID 12/25/16 [History] Insulin Glargine,Hum.rec.anlog [Lantus Solostar] 25 unit SQ QPM 12/25/16 [ History] Insulin Glargine,Hum.rec.anlog [Lantus Solostar] 35 unit SQ QAM 12/25/16 [ History] Insulin LISPRO [HumaLOG] 0 unit SQ TIDWM 12/25/16 [History] Metformin HCl [Metformin HCl ER] 500 mg PO BID 12/25/16 [History] Metoprolol [Lopressor] 100 mg PO BID 12/25/16 [History] OxyCODONE Immed Rel [Roxicodone 5 MG] 5 mg PO QID 12/25/16 [History] Allergies No Known Allergies Allergy (Verified 07/08/15 12:30) All Systems: A 10-system review of systems was performed and is negative for pertinent findings except as documented above in the HPI. Physical Examination Vital Signs: Vital Signs, Last 4 Hours Temp Pulse Resp BP Pulse Ox 12/27/16 07:11 97.6 F 55 14 128/75 95 General appearance: no acute distress Eyes: nonicteric Mallampati (class): 4 Neck: supple Effort: mildly labored Auscultation: bilateral: diminished breath sounds, wheezes (Faint inspiratory and expiratory wheezes appreciated), rales Cardiovascular: regular rate and rhythm Gastrointestinal: soft, non-tender, other (He is morbidly obese) Integumentary: normal Extremities: edema (1+ lower extremity edema to the mid tibia chronic changes of lower extremity swelling) Musculoskeletal: no deformities normal mental status, non-focal exam mood appropriate Results - Laboratory Findings CBC and BMP: 12/27/16 00:48 12/27/16 00:48 ABG ABG pH 7.22 pH Units (7.32-7.45) L 12/27/16 01:25 ABG pCO2 80 mmHg (35-45) H* 12/27/16 01:25 ABG pO2 133 mmHg (85-104) H 12/27/16 01:25 ABG O2 Saturation 99 % (95-98) H 12/27/16 01:25 PT/INR, D-dimer PT 13.5 Seconds (9.4-12.1) H 12/25/16 17:12 D-Dimer 1204 ng/mLFEU (0-500) H 12/27/16 00:48 Abnormal lab findings: Abnormal lab results WBC 11.7 K/mcL (4.3-11.1) H 12/27/16 00:48 Hgb 11.7 g/dL (12.9-16.9) L 12/27/16 00:48 MCH 27.5 pg (28.0-33.3) L 12/27/16 00:48 MCHC 29.6 g/dL (31.6-35.5) L 12/27/16 00:48 RDW 14.7 % (11.5-14.5) H 12/27/16 00:48 Nucleated RBCs/100 WBC 0.5 /100 WBC (0) H 12/25/16 17:12 PT 13.5 Seconds (9.4-12.1) H 12/25/16 17:12 APTT 43.5 Seconds (26.0-36.0) H 12/26/16 08:01 D-Dimer 1204 ng/mLFEU (0-500) H 12/27/16 00:48 ABG pH 7.22 pH Units (7.32-7.45) L 12/27/16 01:25 ABG pCO2 80 mmHg (35-45) H* 12/27/16 01:25 ABG pO2 133 mmHg (85-104) H 12/27/16 01:25 ABG HCO3 32.7 mEQ/L (21-27) H 12/27/16 01:25 ABG Total CO2 35.2 mEq/L (20-26) H 12/27/16 01:25 ABG O2 Saturation 99 % (95-98) H 12/27/16 01:25 VBG pH 7.17 pH Units (7.32-7.42) L* 12/26/16 17:12 VBG pCO2 88 mmHg (41-51) H 12/26/16 17:12 VBG pO2 43 mmHg (25-40) H 12/26/16 17:12 VBG HCO3 32.1 mEq/L (21-27) H 12/26/16 17:12 Potassium 5.3 mEq/L (3.5-4.5) H 12/27/16 00:48 BUN 68 mg/dL (8-26) H 12/27/16 00:48 Creatinine 2.22 mg/dL (0.72-1.25) H 12/27/16 00:48 Est GFR ( Amer) 37 (> 60) L 12/27/16 00:48 Est GFR (Non-Af Amer) 30 (> 60) L 12/27/16 00:48 BUN/Creatinine Ratio 31 (6-26) H 12/27/16 00:48 Glucose 248 mg/dL (70-99) H 12/27/16 00:48 POC Glucose 273 (58-89) H 12/26/16 23:51 Hemoglobin A1c 11.9 % (-5.6) H 12/26/16 11:53 Calculated Osmolality 314 (280-300) H 12/27/16 00:48 Calcium 8.3 mg/dL (8.6-10.8) L 12/27/16 00:48 Phosphorus 5.3 mg/dL (2.3-4.7) H 12/27/16 00:48 Troponin I 0.16 ng/mL (0-0.03) H* 12/26/16 11:53 B-Natriuretic Peptide 318 pg/mL (0-100) H 12/25/16 17:12 Albumin 2.5 g/dL (3.5-5.0) L 12/27/16 00:48 Globulin 4.7 g/dL (2.4-3.5) H 12/27/16 00:48 Albumin/Globulin Ratio 0.5 (1.1-2.2) L 12/27/16 00:48 - Diagnostic Findings Chest x-ray: report reviewed, image reviewed CT scan - chest: report reviewed, image reviewed U/S of Legs: report reviewed - Clinical Findings Intake & Output: Intake & Output 12/26/16 12/27/16 12/27/16 23:59 07:59 15:59 Intake Total 32.3 / 32.3 0 / 0 Output Total 700 / 700 0 / 0 Balance 32.3 / 32.3 -700 / -700 0 / 0 Weight 213.1 kg Consult Discharge Plan - Plan Referrals: Sandi Noland, [facility] [Primary Care Provider] - 01/05/17 10:40 am
--- NOTE | 2016-12-27 11:10 | Cardiology Progress Note ---
Date of Encounter: 12/27/16 Time of Encounter: 10:00 Assessment and Plan (1) Elevated troponin Current Visit: Yes Status: Acute Elevated troponin with downward trend in the setting of LUISITO; likely NSTEMI type II demand ischmia-nondiagnostic for ACS. No acute ischemic ECG changes noted, patient is chest pain free. TTE 12/26/16: poor quality study due to body habitus, LV function appears reduced. Patient did not have ischemic evaluation at [facility] during hospitalization in 2016. Patient dose have multiple risk factors for CAD including HTN, HLD, DM, and 35 pack year history of smoking. Patient is severely deconditioned at baseline with very little activity as well. Ideally recommend ischemic evaluation prior to discharge; he is not a candidate for stress at [facility] due to body habitus. Consider C early next week if renal function improves and patient can tolerate laying flat, appreciate Nephrology/Pulm input. Will continue to follow. (2) LUISITO (acute kidney injury) Current Visit: Yes Status: Acute Midly improved this AM. Continue diuresis. 24 I&O: -2293 mL, patient states his breathing has significant improved since admission. Appreciate Nephrology recommendations. (3) Dyspnea Current Visit: Yes Status: Acute Dyspnea likely mutltfactorial in etiology. Suspect symptoms largely secondary to severe, untreated COSMO. Bilateral LE negative for acute thrombus; noted to be a difficult study due to body habitus. Appreciate Pulm. recommendations. Qualifiers: Dyspnea type: shortness of breath Qualified Code(s): R06.02 - Shortness of breath; R06.00 - Dyspnea, unspecified; R06.01 - Orthopnea Discussion w patient/family: The assessment and plan as outlined above was discussed with the patient and/or family members who expressed understanding and agreement. All questions were answered. Thank you for involving us in the care of your patient. Please call with any questions. The patient will be discussed and reviewed with Dr. Yeager; changes to be made accordingly. Subjective Principal diagnosis: Elevated troponin/LUISITO Interval history: Seen and examined. Sitting up at beside. No events overnight, was on BiPap. States breathing has significantly improved today. Objective Vital Signs, Last 4 Hours Temp Pulse Resp BP Pulse Ox 12/27/16 07:11 97.6 F 55 14 128/75 95 General: Conversant, No Apparent Distress, Other (morbidly obese) HEENT: Atraumatic, Normocephaly Cardiac: Reg Rate and Rhythm, Normal S1 and S2 Lungs: Other (Diminished) Neuro: Alert and responsive Abdomen: Soft, Other (large, pendulous abdomen) Skin: No rashes noted on visualized skin Musculoskeletal: No Chest Wall Tenderness Extremities: Other (large extremities, +2-3 edema. ) Results 12/27/16 00:48 12/27/16 00:48 Lab Results 12/26/16 12/26/16 12/26/16 11:53 11:53 11:53 WBC Hgb Hct Plt Count D-Dimer Sodium 136 Potassium 5.1 H D Chloride 101 Carbon Dioxide 28 BUN 62 H Creatinine 2.12 H Glucose 423 H Calcium 8.5 L Magnesium Total Bilirubin AST ALT Alkaline Phosphatase Troponin I 0.16 H* TSH 0.900 12/26/16 12/27/16 12/27/16 14:04 00:48 00:48 WBC 11.7 H Hgb 11.7 L Hct 39.5 Plt Count 362 D-Dimer Sodium 138 Potassium 5.1 H Chloride 101 Carbon Dioxide 26 BUN 63 H Creatinine 2.17 H Glucose 420 H Calcium 8.7 Magnesium 2.3 Total Bilirubin AST ALT Alkaline Phosphatase Troponin I TSH 12/27/16 12/27/16 00:48 00:48 WBC Hgb Hct Plt Count D-Dimer 1204 H Sodium 138 Potassium 5.3 H Chloride 102 Carbon Dioxide 29 BUN 68 H Creatinine 2.22 H Glucose 248 H Calcium 8.3 L Magnesium Total Bilirubin 0.3 AST 23 ALT 30 Alkaline Phosphatase 111 Troponin I TSH Active Medications Albuterol/Ipratropium (Duoneb) 3 ml IH [id number] ON LICENSE OF [facility] Stop: 06/28/17 10:46 Last Admin: 12/27/16 11:26 Dose: 3 ml Aspirin (Aspirin) 325 mg PO DAILY ON LICENSE OF [facility] Stop: 06/28/17 09:01 Last Admin: 12/27/16 08:00 Dose: 325 mg Atorvastatin Calcium (Lipitor) 40 mg PO HS ON LICENSE OF [facility] Stop: 06/26/17 21:01 Last Admin: 12/26/16 21:47 Dose: 40 mg Carvedilol (Coreg) 12.5 mg PO BIDWM ON LICENSE OF [facility] PRN Reason: Protocol Stop: 06/27/17 17:01 Last Admin: 12/27/16 07:59 Dose: 12.5 mg Chlorthalidone (Chlorthalidone) 25 mg PO DAILY ON LICENSE OF [facility] Stop: 06/27/17 09:01 Last Admin: 12/27/16 07:59 Dose: 25 mg Fluoxetine HCl (Prozac) 20 mg PO DAILY ON LICENSE OF [facility] PRN Reason: Protocol Stop: 06/27/17 09:01 Last Admin: 12/27/16 08:00 Dose: 20 mg Furosemide (Lasix) 40 mg IVP BIDDIURETIC ON LICENSE OF [facility] Stop: 06/27/17 11:16 Last Admin: 12/27/16 08:00 Dose: 40 mg Gabapentin (Neurontin) 300 mg PO TID ON LICENSE OF [facility] Stop: 06/26/17 21:01 Last Admin: 12/27/16 07:59 Dose: 300 mg Heparin Sodium (Porcine) (Heparin) 5,000 unit SQ Q8HCO ON LICENSE OF [facility] Stop: 06/27/17 14:01 Last Admin: 12/27/16 04:55 Dose: 5,000 unit Insulin Detemir (Levemir) 25 unit SQ HS ON LICENSE OF [facility] Stop: 06/27/17 21:01 Last Admin: 12/26/16 21:48 Dose: 25 unit Insulin Detemir (Levemir) 35 unit SQ QAM ON LICENSE OF [facility] Stop: 06/27/17 09:01 Insulin Human Lispro (Humalog) 0 units SQ Q4HR ON LICENSE OF [facility] PRN Reason: Protocol Stop: 06/27/17 20:01 Last Admin: 12/27/16 07:58 Dose: 6 units Isosorbide Mononitrate (Imdur) 30 mg PO DAILY ON LICENSE OF [facility] Stop: 06/27/17 11:16 Last Admin: 12/27/16 08:00 Dose: 30 mg Naloxone HCl (Narcan) 0.4 mg IVP Q2MIN PRN PRN Reason: Opioid Reversal Stop: 06/26/17 20:55 Oxycodone HCl (Roxicodone) 5 mg PO QID ON LICENSE OF [facility] Stop: 06/26/17 21:01 Last Admin: 12/27/16 08:00 Dose: 5 mg ITS Impressions Chest X-Ray 12/25/16 16:33 IMPRESSION: There is moderate elevation of the right hemidiaphragm with mild right basilar airspace disease, likely atelectasis. D/ / Zeinab Fleming MD / Zeinab Fleming MD Interpreting Provider: Zeinab Fleming MD - Imaging and Cardiology Chest Xray: report reviewed Echo: report reviewed Other Results: 12 hour tele: avg HR=58 SR. No significant event noted. - EKG Interpretation EKG results cardiology: personally reviewed - VTE Reasons for not Prescribing Prophylaxis: Not indicated-Anticoagulated or INR therapeutic Consult Discharge Plan - Plan Referrals: Sandi Noland CNP [Primary Care Provider] - 01/05/17 10:40 am
[2016-12-27] MEDS: Ipratropium/Albuterol Neb 3 ML IH SCH ×3 (11:26→20:01)
[2016-12-27] MEDS ORDERED: Insulin DETEMIR 100 UNIT/ML X5UNITS SQ SCH (18:10)
[2016-12-28] MEDS: Insulin LISPRO 300 UNITS/3 ML VIAL SQ SCH ×8 (00:46→20:29)
[2016-12-28] MEDS: Ipratropium/Albuterol Neb 3 ML IH SCH ×7 (01:10→23:39)
[2016-12-28 01:56] LABS: Basophils # 0.1 K/mcL (0.0-0.2); Basophils % 0.7 %; Eosinophils # 0.1 K/mcL (0.0-0.6); Eosinophils % 1.2 %; Hemoglobin 11.3 g/dL (12.9-16.9); Immature Granulocytes % 0.4 % (0-4); Lymphocytes # 1.9 K/mcL (0.6-4.6); Lymphocytes % 20.6 %; Mean Corpuscular HGB Conc 29.7 g/dL (31.6-35.5); Mean Corpuscular Hemoglobin 27.9 pg (28.0-33.3); Mean Corpuscular Volume 93.8 fL (83.0-100.0); Mean Platelet Volume 10.3 fL (9.4-12.4); Monocytes # 0.9 K/mcL (0.0-1.3); Platelet Count 320 K/mcL (140-400); Red Blood Count 4.05 M/mcL (4.19-5.50); Red Cell Distribution Width 14.8 % (11.5-14.5); Segmented Neutrophils % 67.1 %
[2016-12-28 02:11] LABS: Calcium 8.4 mg/dL (8.6-10.8); Potassium 4.8 mEq/L (3.5-4.5)
[2016-12-28] MEDS: *HR* Heparin 5,000 UNIT/ML VIAL SQ SCH ×3 (05:59→20:28)
--- NOTE | 2016-12-28 07:10 | Cardiology Progress Note ---
Date of Encounter: 12/28/16 Time of Encounter: 06:00 Assessment and Plan (1) Elevated troponin Current Visit: Yes Status: Acute Elevated troponin with downward trend in the setting of LUISITO; likely NSTEMI type II demand ischmia-nondiagnostic for ACS. No acute ischemic ECG changes noted, patient is chest pain free. TTE 12/26/16: poor quality study due to body habitus, LV function appears reduced. Patient did not have ischemic evaluation at [facility] during hospitalization in 2016. Patient dose have multiple risk factors for CAD including HTN, HLD, DM, and 35 pack year history of smoking. Patient is severely deconditioned at baseline with very little activity as well. Ideally recommend ischemic evaluation prior to discharge; he is not a candidate for stress at [facility] due to body habitus. Consider LHC early next week if renal function improves and patient can tolerate laying flat, appreciate Nephrology/Pulm input. Will make NPO after MN tonight for possible LHC if renal function continues to improve. (2) LUISITO (acute kidney injury) Current Visit: Yes Status: Acute Midly improved this AM. Continue diuresis. 24 I&O: -4663 mL, patient states his breathing has significant improved since admission. Appreciate Nephrology recommendations. (3) Dyspnea Current Visit: Yes Status: Acute Dyspnea likely mutltfactorial in etiology. Suspect symptoms largely secondary to severe, untreated COSMO and OHS Bilateral LE negative for acute thrombus; noted to be a difficult study due to body habitus. VQ scan showed low probability for PE. Appreciate Pulm. recommendations. Qualifiers: Dyspnea type: shortness of breath Qualified Code(s): R06.02 - Shortness of breath; R06.00 - Dyspnea, unspecified; R06.01 - Orthopnea Discussion w patient/family: The assessment and plan as outlined above was discussed with the patient and/or family members who expressed understanding and agreement. All questions were answered. Thank you for involving us in the care of your patient. Please call with any questions. The patient will be discussed and reviewed with Dr. Yeager; changes to be made accordingly. Subjective Principal diagnosis: Elevated troponin/LUISITO Interval history: Seen and examined. Wearing BiPap this AM. Objective Vital Signs, Last 4 Hours Temp Pulse Resp BP Pulse Ox 12/28/16 04:38 97.2 F L 75 20 113/91 96 12/28/16 03:37 13 95 General: Conversant (on Bipap) HEENT: Atraumatic, Normocephaly Cardiac: Reg Rate and Rhythm, Normal S1 and S2 Lungs: Other (diminished) Neuro: Alert and responsive Abdomen: Other (large, obese) Skin: No rashes noted on visualized skin Musculoskeletal: No Chest Wall Tenderness Extremities: Other (+2-3 edema) Results 12/28/16 01:41 12/28/16 01:41 Lab Results 12/28/16 12/28/16 01:41 01:41 WBC 9.0 Hgb 11.3 L Hct 38.0 Plt Count 320 Sodium 140 Potassium 4.8 H Chloride 103 Carbon Dioxide 31 H BUN 71 H Creatinine 1.93 H Glucose 252 H Calcium 8.4 L - Imaging and Cardiology Chest Xray: report reviewed Echo: report reviewed Other Results: 12 hour tele: avg HR 75 SR. No significant event noted. - EKG Interpretation EKG results cardiology: personally reviewed - VTE Reasons for not Prescribing Prophylaxis: Not indicated-Anticoagulated or INR therapeutic Consult Discharge Plan - Plan Referrals: Sandi Noland CNP [Primary Care Provider] - 01/05/17 10:40 am
[2016-12-28] MEDS: Insulin DETEMIR 100 UNIT/ML X5UNITS SQ SCH ×2 (08:25→11:51)
[2016-12-28] MEDS: Furosemide 40 MG/4 ML VIAL IVP SCH ×2 (08:25→16:37)
[2016-12-28] MEDS: Aspirin 325 MG TABLET PO SCH (08:26)
[2016-12-28] MEDS: Isosorbide MONOnitrate (24 HR) 30 MG TAB.ER.24H PO SCH (08:26)
[2016-12-28] MEDS: *HR* OxyCODONE Immed Rel 5 MG TABLET PO SCH ×4 (08:27→20:29)
[2016-12-28] MEDS: Gabapentin 300 MG CAPSULE PO SCH ×3 (08:27→20:29)
[2016-12-28] MEDS: FLUoxetine 20 MG CAPSULE PO SCH (08:27)
--- NOTE | 2016-12-28 08:47 | Pulmonology Progress Note ---
Date of Encounter: 12/28/16 Time of Encounter: 08:47 Assessment and Plan (1) Acute hypoxemic respiratory failure Current Visit: Yes Status: Acute Impression 1. Acute on chronic hypoxic hypercarbic respiratory failure requiring NIPPV 2. CHF 3. 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 COPD with Exacerbation 5. LUISITO 6. Hyperglycemia Recs: -Continue BiPAP today with breaks as needed for meals etc. and would resume BiPAP overnight continue supplemental oxygen to keep saturation greater than 80 % to approximately 92% obtain morning ABG -He is responding well to diuresis I would aim for net -1-1.5 L today to for heart rate control and blood pressure control to primary hospitalist service and cardiology is following -Continue bronchodilators for severity of underlying hyperglycemia I would hold off on systemic steroids at this time. Start Symbicort 160/4.52 puffs twice daily -Weight loss encouraged he will need a formal polysomnogram as an outpatient he should be qualified for noninvasive ventilation at the time of discharge -Serum creatinine is improving today urine output remains good would continue diuresis while monitoring electrolytes at least daily -Hyperglycemia still suboptimally controlled but better than the previous 2 days the primary medicine service is managing this -Continue DVT prophylaxis (2) Obesity hypoventilation syndrome Current Visit: Yes Status: Acute (3) Acute kidney injury Current Visit: Yes Status: Acute (4) Acute respiratory failure with hypercapnia Current Visit: Yes Status: Acute (5) CHF (congestive heart failure) Current Visit: Yes Status: Acute Qualifiers: Congestive heart failure type: combined Congestive heart failure chronicity : acute on chronic Qualified Code(s): I50.43 - Acute on chronic combined systolic (congestive) and diastolic (congestive) heart failure (6) DVT prophylaxis Current Visit: Yes Status: Acute (7) Dyspnea Current Visit: Yes Status: Acute Qualifiers: Dyspnea type: shortness of breath Qualified Code(s): R06.02 - Shortness of breath; R06.00 - Dyspnea, unspecified; R06.01 - Orthopnea (8) Hyperglycemia due to type 2 diabetes mellitus Current Visit: Yes Status: Acute Qualifiers: Diabetes mellitus mcc insulin use: with mcc use Qualified Code( s): E11.65 - Type 2 diabetes mellitus with hyperglycemia; Z79.4 - long term care phlebotomist ( current) use of insulin (9) Hypertension Current Visit: Yes Status: Acute Qualifiers: Hypertension type: unspecified Qualified Code(s): I10 - Essential (primary ) hypertension (10) Morbid obesity with BMI of 50.0-59.9, adult Current Visit: Yes Status: Acute (11) Non-STEMI (non-ST elevated myocardial infarction) Current Visit: Yes Status: Acute (12) COPD exacerbation Current Visit: Yes Status: Acute Subjective Principal diagnosis: Elevated troponin/LUISITO Interval history: Mr. Cruz did relatively well yesterday he wore BiPAP most of the day from my understanding in [place] the room he was just waking up and had slept with it all night. He diuresed almost 2 L yesterday. Objective PUL Vital signs: Last Vital Signs Temp 97.2 F L 12/28/16 04:38 Pulse 75 12/28/16 04:38 Resp 20 12/28/16 04:38 BP 113/91 12/28/16 04:38 Pulse Ox 96 12/28/16 04:38 General appearance: no acute distress Effort: normal Auscultation: bilateral: wheezes (Faint expiratory), rales Cardiovascular: regular rate and rhythm Gastrointestinal: normoactive bowel sounds, soft, non-tender Extremities: edema Results - Laboratory Findings CBC and BMP: 12/28/16 01:41 12/28/16 01:41 ABG ABG pH 7.22 pH Units (7.32-7.45) L 12/27/16 01:25 ABG pCO2 80 mmHg (35-45) H* 12/27/16 01:25 ABG pO2 133 mmHg (85-104) H 12/27/16 01:25 ABG O2 Saturation 99 % (95-98) H 12/27/16 01:25 PT/INR, D-dimer PT 13.5 Seconds (9.4-12.1) H 12/25/16 17:12 D-Dimer 1204 ng/mLFEU (0-500) H 12/27/16 00:48 Abnormal lab findings: Abnormal lab results RBC 4.05 M/mcL (4.19-5.50) L 12/28/16 01:41 Hgb 11.3 g/dL (12.9-16.9) L 12/28/16 01:41 MCH 27.9 pg (28.0-33.3) L 12/28/16 01:41 MCHC 29.7 g/dL (31.6-35.5) L 12/28/16 01:41 RDW 14.8 % (11.5-14.5) H 12/28/16 01:41 Nucleated RBCs/100 WBC 0.5 /100 WBC (0) H 12/25/16 17:12 PT 13.5 Seconds (9.4-12.1) H 12/25/16 17:12 APTT 43.5 Seconds (26.0-36.0) H 12/26/16 08:01 D-Dimer 1204 ng/mLFEU (0-500) H 12/27/16 00:48 ABG pH 7.22 pH Units (7.32-7.45) L 12/27/16 01:25 ABG pCO2 80 mmHg (35-45) H* 12/27/16 01:25 ABG pO2 133 mmHg (85-104) H 12/27/16 01:25 ABG HCO3 32.7 mEQ/L (21-27) H 12/27/16 01:25 ABG Total CO2 35.2 mEq/L (20-26) H 12/27/16 01:25 ABG O2 Saturation 99 % (95-98) H 12/27/16 01:25 VBG pH 7.17 pH Units (7.32-7.42) L* 12/26/16 17:12 VBG pCO2 88 mmHg (41-51) H 12/26/16 17:12 VBG pO2 43 mmHg (25-40) H 12/26/16 17:12 VBG HCO3 32.1 mEq/L (21-27) H 12/26/16 17:12 Potassium 4.8 mEq/L (3.5-4.5) H 12/28/16 01:41 Carbon Dioxide 31 mEq/L (19-29) H 12/28/16 01:41 BUN 71 mg/dL (8-26) H 12/28/16 01:41 Creatinine 1.93 mg/dL (0.72-1.25) H 12/28/16 01:41 Est GFR ( Amer) 43 (> 60) L 12/28/16 01:41 Est GFR (Non-Af Amer) 36 (> 60) L 12/28/16 01:41 BUN/Creatinine Ratio 37 (6-26) H 12/28/16 01:41 Glucose 252 mg/dL (70-99) H 12/28/16 01:41 POC Glucose 222 (58-89) H 12/28/16 04:41 Hemoglobin A1c 11.9 % (-5.6) H 12/26/16 11:53 Calculated Osmolality 319 (280-300) H 12/28/16 01:41 Calcium 8.4 mg/dL (8.6-10.8) L 12/28/16 01:41 Phosphorus 5.3 mg/dL (2.3-4.7) H 12/27/16 00:48 Troponin I 0.16 ng/mL (0-0.03) H* 12/26/16 11:53 B-Natriuretic Peptide 318 pg/mL (0-100) H 12/25/16 17:12 Albumin 2.5 g/dL (3.5-5.0) L 12/27/16 00:48 Globulin 4.7 g/dL (2.4-3.5) H 12/27/16 00:48 Albumin/Globulin Ratio 0.5 (1.1-2.2) L 12/27/16 00:48 - Clinical Findings Intake & Output: Intake & Output 12/27/16 12/28/16 12/28/16 23:59 07:59 15:59 Intake Total 480 / 480 Output Total 2350 / 2350 1100 / 1100 Balance -1870 / -1870 -1100 / -1100 Weight 213.5 kg - VTE Reasons for not Prescribing Prophylaxis: Not indicated-Anticoagulated or INR therapeutic Consult Discharge Plan - Plan Referrals: Sandi Noland CASE WORKER [Primary Care Provider] - 01/05/17 10:40 am
[2016-12-28] MEDS ORDERED: Dextrose Gel 15 GM PO PRN ×2 (08:59)
[2016-12-28] MEDS ORDERED: *HR* Dextrose 50 % in Water (Syg) 50 ML SYRINGE IVP PRN (08:59)
[2016-12-28] MEDS ORDERED: D5% in Water 1,000 ML IVC PRN (08:59)
[2016-12-28] MEDS ORDERED: Insulin DETEMIR 100 UNIT/ML X5UNITS SQ SCH (09:00)
--- NOTE | 2016-12-28 09:01 | Internal Med Progress Note ---
Date of Encounter: 12/28/16 Time of Encounter: 08:58 - Assessment and plan (1) Non-STEMI (non-ST elevated myocardial infarction) Current Visit: Yes Status: Acute Assessment and plan: Patient presented with shortness of breath, possible anginal equivalent. Noted to have troponin elevation, peak troponin at 0.36. Cardiology follow-up appreciated. Plan for possible left heart catheterization tomorrow, if renal function continues to improve. At this time, continue aspirin, beta abhishek and statin. Telemetry monitoring. Echocardiogram is a technically difficult and poor quality study, however shows possibly dilated left ventricle with decreased systolic function, mild diastolic dysfunction. (2) Hyperglycemia due to type 2 diabetes mellitus Current Visit: Yes Status: Acute Assessment and plan: Blood sugars currently stable in low to mid 200s. We will increase basal insulin, continue sliding scale insulin and add nutritional insulin. Diabetic diet. Hemoglobin A1c noted to be close to 12%. Qualifiers: Diabetes mellitus watermelon inspector insulin use: with residential use Qualified Code( s): E11.65 - Type 2 diabetes mellitus with hyperglycemia; Z79.4 - penitentiary ( current) use of insulin (3) Respiratory acidosis Current Visit: Yes Status: Acute Assessment and plan: Unclear etiology. Likely underlying COSMO/OHS and undiagnosed COPD. Ventilation perfusion lung scan shows low probability for PE. Pulmonology on board. Continue every 4 hourly scheduled bronchodilators for now. Plan to add steroids only if needed, to avoid hyperglycemia. Started Symbicort. Continue supplemental oxygen to maintain oxygen saturation 88-92%. Continue noninvasive positive pressure ventilation at night. Patient will need outpatient sleep studies. BiPAP qualification study prior to discharge. (4) Chronic kidney disease Current Visit: Yes Status: Chronic Qualifiers: Chronic kidney disease stage: stage 3 (moderate) Qualified Code(s): N18.3 - Chronic kidney disease, stage 3 (moderate) (5) Morbid obesity Current Visit: Yes Status: Chronic (6) DMII (diabetes mellitus, type 2) Current Visit: Yes Status: Chronic Qualifiers: Diabetes mellitus complication status: with kidney complications Diabetes mellitus complication detail: with chronic kidney disease Diabetes mellitus residential insulin use: with residential use Chronic kidney disease stage: stage 3 (moderate) Qualified Code(s): E11.22 - Type 2 diabetes mellitus with diabetic chronic kidney disease; N18.3 - Chronic kidney disease, stage 3 ( moderate); Z79.4 - penitentiary (current) use of insulin (7) CHF (congestive heart failure) Current Visit: Yes Status: Acute Assessment and plan: Likely has undiagnosed and untreated CHF given his chronic pedal edema, elevated BNP. Continue Imdur, Coreg and Lasix, fluid restriction. Noted to have good urine output with at least 5.5 L net negative fluid balance. Echocardiogram reviewed. Qualifiers: Congestive heart failure type: combined Congestive heart failure chronicity : acute on chronic Qualified Code(s): I50.43 - Acute on chronic combined systolic (congestive) and diastolic (congestive) heart failure (8) LUISITO (acute kidney injury) Current Visit: Yes Status: Acute Assessment and plan: Patient is noted to have baseline serum creatinine around 1.1, currently with acute kidney injury-could be related to hyperglycemia/dehydration. Serum creatinine noted to be slightly improving, 1.9 today. He will need IV Lasix at this time with close monitoring of serum creatinine as he appears to be volume overloaded with respiratory acidosis. We will consult nephrology if serum creatinine does not improve. Avoid nephrotoxic agents. - Subjective Interval history: No new complaints; has been compliant with overnight BiPAP and still on it; tolerates diet; reports improved dyspnea, no chest pain; persistent leg swelling but noted to have good urine output; - Constitutional Vitals: Temp Pulse Resp BP Pulse Ox 97.2 F L 75 20 113/91 96 12/28/16 04:38 12/28/16 04:38 12/28/16 04:38 12/28/16 04:38 12/28/16 04:38 General appearance: Present: A&O X 3, morbidly obese, answers questions appropriately - Respiratory Respiratory exam: Present: CTAB. Absent: accessory muscle use, rales, rhonchi, wheezes - Cardiovascular Cardiovascular exam: Present: RRR, +S1, +S2. Absent: diastolic murmur, gallop, rubs, systolic murmur - GI/Abdominal GI/Abdominal exam: Present: normal bowel sounds, soft (obese), no peritoneal signs. Absent: distended, tenderness - Extremities Exam Extremities exam: Present: full ROM, pedal edema, warm, radial pulses palpable and symmetrical. Absent: calf tenderness, cyanotic Additional comments: B/L anterior leg stasis dermatitis - Neurological Exam Neurological exam: Present: CN II-XII intact, oriented X3, no focal deficits. Absent: pronater drift, facial droop, speech deficit Internal Medicine: Result - Labs CBC & Chem 7: 12/28/16 01:41 12/28/16 01:41 Labs: Short CBC 12/28/16 Range/Units 01:41 WBC 9.0 (4.3-11.1) K/mcL Hgb 11.3 L (12.9-16.9) g/dL Hct 38.0 (37.5-50.1) % Plt Count 320 (140-400) K/mcL Neutrophils # 6.0 (1.6-8.9) K/mcL BMP 12/28/16 01:41 Sodium 140 Potassium 4.8 H Chloride 103 Carbon Dioxide 31 H BUN 71 H Creatinine 1.93 H Glucose 252 H Calcium 8.4 L - ABG Interpretation ABG results: ABG ABG pH 7.22 pH Units (7.32-7.45) L 12/27/16 01:25 ABG pCO2 80 mmHg (35-45) H* 12/27/16 01:25 ABG pO2 133 mmHg (85-104) H 12/27/16 01:25 ABG O2 Saturation 99 % (95-98) H 12/27/16 01:25 PT/INR, D-dimer PT 13.5 Seconds (9.4-12.1) H 12/25/16 17:12 D-Dimer 1204 ng/mLFEU (0-500) H 12/27/16 00:48 - Impressions Impressions Pulmonary Perfusion Imaging 12/26/16 18:00 IMPRESSION: 1. Low probability for pulmonary embolism. 2. Clumping of activity in the central airways especially on the right, potentially due to airways disease or poor inspiratory effort. D/ / Chris Felix MD / Chris Felix MD Interpreting Provider: Chris Felix MD Chest X-Ray 12/27/16 14:24 IMPRESSION: Stable exam with associated mild cardiomegaly and right lower lobe atelectasis. Mild elevation of the right hemidiaphragm. Low lung volumes. D/ / 12/27/2016 15:01:19 Serge Ronquillo MD / tamera Interpreting Provider: Serge Ronquillo MD - VTE Reasons for not Prescribing Prophylaxis: Not indicated-Anticoagulated or INR therapeutic Consult Discharge Plan - Plan Referrals: Sandi Noland, CLEANING LABORER [Primary Care Provider] - 01/05/17 10:40 am
[2016-12-28] MEDS: Budesonide/Formoterol 160/4.5 MDI IH SCH ×2 (11:15→19:40)
[2016-12-29 01:17] LABS: Basophils % 0.5 %; Eosinophils # 0.1 K/mcL (0.0-0.6); Eosinophils % 1.3 %; Hematocrit 38.7 % (37.5-50.1); Hemoglobin 11.3 g/dL (12.9-16.9); Immature Granulocytes % 0.6 % (0-4); Lymphocytes # 1.5 K/mcL (0.6-4.6); Lymphocytes % 18.6 %; Mean Corpuscular HGB Conc 29.2 g/dL (31.6-35.5); Mean Corpuscular Hemoglobin 26.9 pg (28.0-33.3); Mean Corpuscular Volume 92.1 fL (83.0-100.0); Mean Platelet Volume 10.2 fL (9.4-12.4); Monocytes % 11.9 %; Neutrophils # 5.5 K/mcL (1.6-8.9); Platelet Count 342 K/mcL (140-400); Red Cell Distribution Width 14.6 % (11.5-14.5); Segmented Neutrophils % 67.1 %
[2016-12-29 01:26] LABS: Calcium 8.5 mg/dL (8.6-10.8); Magnesium 1.9 mg/dL (1.6-2.6); Potassium 4.8 mEq/L (3.5-4.5)
[2016-12-29] MEDS: Ipratropium/Albuterol Neb 3 ML IH SCH ×5 (03:44→20:34)
[2016-12-29 03:52] LABS: ABG HCO3 37.9 mEQ/L (21-27); ABG Oxygen Saturation 99 % (95-98); ABG PO2 124 mmHg (85-104); ABG TCO2 40.3 mEq/L (20-26)
[2016-12-29 03:54] LABS: ABG PCO2 77 mmHg (35-45)
[2016-12-29] MEDS: *HR* Heparin 5,000 UNIT/ML VIAL SQ SCH ×3 (04:03→20:33)
[2016-12-29] MEDS ORDERED: methylPREDNISolone 125 MG/2 ML VIAL IVP ONE (04:10)
[2016-12-29] MEDS ORDERED: Albuterol 2.5 MG/3 ML NEBULIZER IH PRN (04:10)
--- NOTE | 2016-12-29 04:36 | Event Note ---
<Allan Nance - Last Filed: 12/29/16 04:34> Date of Encounter: 12/29/16 Time of Encounter: 04:34 Paged for critical ABG by MECHANICAL EQUIPMENT SALES ENGINEER. ph 7.30, CO2 77, PO2 124, HCO3 37.9, 99%. This is mildly improved from previous lab value. Patient seen and evaluated, complaining of mild shortness of breath. No acute distress. Lungs CTAB. Will leave patient on current BIPAP settings and add on solumedrol 125mg x 1 dose. Will also add on albuterol to patient's regimen. He is currently on duonebs q4h and received treatment after ABG resulted. <Fredis Jensen - Last Filed: 12/29/16 06:14> Date of Encounter: 12/29/16 I examined this patient and my medical decision-making was reviewed with the Resident Physician, Dr Allan Nance. I agree with the documented findings, disposition and treatment plan as described except to the extent set forth below. My findings are summarized below: Patient appears awake alert and oriented. Lung exam reveals clear breath sounds bilaterally. Plan: Acute on chronic hypercarbic respiratory failure could be related to undiagnosed COPD in addition to obstructive sleep apnea and obesity hypoventilation syndrome. We will give 1 dose of IV steroids and start inhaled bronchodilators.
[2016-12-29] MEDS: Budesonide/Formoterol 160/4.5 MDI IH SCH ×2 (07:36→20:34)
[2016-12-29] MEDS: Insulin DETEMIR 100 UNIT/ML X5UNITS SQ SCH ×2 (08:03→20:32)
[2016-12-29] MEDS: Insulin LISPRO 300 UNITS/3 ML VIAL SQ SCH ×7 (08:03→20:33)
[2016-12-29] MEDS: FLUoxetine 20 MG CAPSULE PO SCH (08:04)
[2016-12-29] MEDS: Gabapentin 300 MG CAPSULE PO SCH ×3 (08:04→20:33)
[2016-12-29] MEDS: Isosorbide MONOnitrate (24 HR) 30 MG TAB.ER.24H PO SCH (08:04)
[2016-12-29] MEDS: *HR* OxyCODONE Immed Rel 5 MG TABLET PO SCH ×4 (08:04→20:33)
[2016-12-29] MEDS: Aspirin 325 MG TABLET PO SCH (08:04)
[2016-12-29] MEDS: Furosemide 40 MG/4 ML VIAL IVP SCH ×2 (08:04→16:57)
--- NOTE | 2016-12-29 08:39 | Internal Med Progress Note ---
Date of Encounter: 12/29/16 Time of Encounter: 08:37 - Assessment and plan (1) Non-STEMI (non-ST elevated myocardial infarction) Current Visit: Yes Status: Acute Assessment and plan: Patient presented with shortness of breath, possible anginal equivalent. Noted to have troponin elevation, peak troponin at 0.36. Cardiology follow-up appreciated. Plan for possible left heart catheterization tomorrow, as patient is currently unable to lie flat and continues to require BiPAP support for several hours each day. continue aspirin, beta abhishek and statin. To increase beta abhishek today as patient continues to have elevated blood pressure. Telemetry monitoring. Echocardiogram is a technically difficult and poor quality study, however shows possibly dilated left ventricle with decreased systolic function, mild diastolic dysfunction. (2) Hyperglycemia due to type 2 diabetes mellitus Current Visit: Yes Status: Acute Assessment and plan: Blood sugars currently stable in low to mid 200s. Increase basal insulin, continue sliding scale insulin and nutritional insulin. Diabetic diet. Hemoglobin A1c noted to be close to 12%. Qualifiers: Diabetes mellitus senior care insulin use: with roasterman use Qualified Code( s): E11.65 - Type 2 diabetes mellitus with hyperglycemia; Z79.4 - manager long term care ( current) use of insulin (3) Respiratory acidosis Current Visit: Yes Status: Acute Assessment and plan: Unclear etiology. Likely underlying COSMO/OHS and undiagnosed COPD. Ventilation perfusion lung scan shows low probability for PE. Pulmonology on board. Continue every 4 hourly scheduled bronchodilators for now. on Symbicort. Continue supplemental oxygen to maintain oxygen saturation 88-92%. Continue noninvasive positive pressure ventilation at night. Patient will need outpatient sleep studies. BiPAP qualification study prior to discharge. Repeat ABG shows improving pH at 7.3, PCO2 77, PO2 124. (4) Chronic kidney disease Current Visit: Yes Status: Chronic Qualifiers: Chronic kidney disease stage: stage 3 (moderate) Qualified Code(s): N18.3 - Chronic kidney disease, stage 3 (moderate) (5) Morbid obesity Current Visit: Yes Status: Chronic (6) DMII (diabetes mellitus, type 2) Current Visit: Yes Status: Chronic Qualifiers: Diabetes mellitus complication status: with kidney complications Diabetes mellitus complication detail: with chronic kidney disease Diabetes mellitus roasterman insulin use: with roasterman use Chronic kidney disease stage: stage 3 (moderate) Qualified Code(s): E11.22 - Type 2 diabetes mellitus with diabetic chronic kidney disease; N18.3 - Chronic kidney disease, stage 3 ( moderate); Z79.4 - [facility] (current) use of insulin (7) CHF (congestive heart failure) Current Visit: Yes Status: Acute Assessment and plan: Likely has undiagnosed and untreated CHF given his chronic pedal edema, elevated BNP. Continue Imdur, Coreg and Lasix, fluid restriction. Noted to have good urine output with at least 14 L net negative fluid balance. Echocardiogram reviewed. Plan for left heart catheterization for ischemia evaluation when respiratory and renal function improve. Qualifiers: Congestive heart failure type: combined Congestive heart failure chronicity : acute on chronic Qualified Code(s): I50.43 - Acute on chronic combined systolic (congestive) and diastolic (congestive) heart failure (8) LUISITO (acute kidney injury) Current Visit: Yes Status: Acute Assessment and plan: Patient is noted to have baseline serum creatinine around 1.1, currently with acute kidney injury-could be related to hyperglycemia/dehydration/CHF. Serum creatinine noted to be improving, 1.6 today. He will need IV Lasix at this time with close monitoring of serum creatinine as he appears to be volume overloaded with respiratory acidosis. We will consult nephrology if serum creatinine does not improve. Avoid nephrotoxic agents. - Subjective Interval history: Reports not having a good night last night as he could not get comfortable; per RN, he kept taking off his BiPAP; does not c/o- chest pain or dyspnea; continues to have good urine output; - Constitutional Vitals: Temp Pulse Resp BP Pulse Ox 97.9 F 85 13 157/97 98 12/29/16 07:30 12/29/16 07:30 12/29/16 07:37 12/29/16 07:30 12/29/16 07:37 General appearance: Present: A&O X 3, morbidly obese, answers questions appropriately - Respiratory Respiratory exam: Present: CTAB (coarse breath sounds B/L, scattered rhonchi at bases). Absent: accessory muscle use, rales, rhonchi, wheezes - Cardiovascular Cardiovascular exam: Present: RRR, +S1, +S2. Absent: diastolic murmur, gallop, rubs, systolic murmur - GI/Abdominal GI/Abdominal exam: Present: normal bowel sounds, soft (obese), no peritoneal signs. Absent: distended, tenderness - Extremities Exam Extremities exam: Present: pedal edema, warm, radial pulses palpable and symmetrical. Absent: calf tenderness, cyanotic Additional comments: B/L anterior leg stasis dermatitis Internal Medicine: Result - Labs CBC & Chem 7: 12/29/16 00:56 12/29/16 00:56 Labs: Short CBC 12/29/16 Range/Units 00:56 WBC 8.2 (4.3-11.1) K/mcL Hgb 11.3 L (12.9-16.9) g/dL Hct 38.7 (37.5-50.1) % Plt Count 342 (140-400) K/mcL Neutrophils # 5.5 (1.6-8.9) K/mcL BMP 12/29/16 00:56 Sodium 141 Potassium 4.8 H Chloride 102 Carbon Dioxide 32 H BUN 64 H Creatinine 1.68 H Glucose 241 H Calcium 8.5 L - ABG Interpretation ABG results: ABG ABG pH 7.30 pH Units (7.32-7.45) L 12/29/16 03:35 ABG pCO2 77 mmHg (35-45) H* 12/29/16 03:35 ABG pO2 124 mmHg (85-104) H 12/29/16 03:35 ABG O2 Saturation 99 % (95-98) H 12/29/16 03:35 PT/INR, D-dimer PT 13.5 Seconds (9.4-12.1) H 12/25/16 17:12 D-Dimer 1204 ng/mLFEU (0-500) H 12/27/16 00:48 - VTE Reasons for not Prescribing Prophylaxis: Not indicated-Anticoagulated or INR therapeutic Consult Discharge Plan - Plan Referrals: Sandi Noland CNP [Primary Care Provider] - 01/05/17 10:40 am Sandy Bright CNP [Advanced Practice Nurse] - 01/07/17 3:30 pm
--- NOTE | 2016-12-29 11:00 | Cardiology Progress Note ---
Date of Encounter: 12/29/16 Time of Encounter: 08:30 Assessment and Plan (1) Elevated troponin Current Visit: Yes Status: Acute Per cardiology: -Elevated troponin with downward trend in the setting of LUISITO; likely NSTEMI type II demand ischmia-nondiagnostic for ACS. -No acute ischemic ECG changes noted, patient is chest pain free. -TTE 12/26/16: poor quality study due to body habitus, LV function appears reduced. -Patient did not have ischemic evaluation at [facility] during hospitalization in 2016. -Patient dose have multiple risk factors for CAD including HTN, HLD, DM, and 35 pack year history of smoking. -Patient is severely deconditioned at baseline with very little activity as well. -On asa, statin, beta abhishek. Hypertesive today, will increase beta abhishek. -Patient's ABG today with pH 7.3, pCO2 77. Patient on Bipap with FiO2 45%. Patient states he does not think that he would be able to lay flat for LHC today. -Ideally recommend ischemic evaluation prior to discharge; he is not a candidate for stress at [facility] due to body habitus. -Will make NPO after MN tonight for possible LHC if renal function and respiratory status continues to improve. -Will continue to monitor. (2) LUISITO (acute kidney injury) Current Visit: Yes Status: Acute Per cardiology: -Midly improved this AM, creatinine 1.68 today. -Continue diuresis. -net negative 10,573 mL this admission, patient states his breathing has significant improved since admission. -Appreciate Nephrology recommendations. (3) Dyspnea Current Visit: Yes Status: Acute Per cardiology: -Dyspnea likely mutltfactorial in etiology. -Suspect symptoms largely secondary to severe, untreated COSMO and OHS -Bilateral LE negative for acute thrombus; noted to be a difficult study due to body habitus. VQ scan showed low probability for PE. -On Bipap with FiO2 45%. -Appreciate Pulm. recommendations. Qualifiers: Dyspnea type: shortness of breath Qualified Code(s): R06.02 - Shortness of breath; R06.00 - Dyspnea, unspecified; R06.01 - Orthopnea Discussion w patient/family: The assessment and plan as outlined above was discussed with the patient who expressed understanding and agreement. All questions were answered. Thank you for involving us in the care of your patient. Please call with any questions. Discussed and reviewed with . Subjective Principal diagnosis: Elevated troponin/LUISITO Interval history: Patient denies chest pain overnight. Reports shortness of breath. Patient wearing Bipap this morning and states he wore all night. Patient states he has not laid flat since admission and does not think he could lay flat for [facility]. Objective Vital Signs, Last 4 Hours Temp Pulse Resp BP Pulse Ox 12/29/16 07:37 13 98 12/29/16 07:30 97.9 F 85 14 157/97 97 12/29/16 07:02 97.9 F 85 14 157/97 97 General: Conversant, No Apparent Distress HEENT: Atraumatic, Normocephaly, Mucus Membranes Moist Neck: No JVD, Normal carotid pulses Cardiac: Reg Rate and Rhythm, Normal S1 and S2, No Murmur Lungs: Normal Breath Sounds, No Wheeze, Rales, Rhonchi Neuro: Alert and responsive, No focal deficits noted Abdomen: Soft, Non-Tender Skin: No rashes noted on visualized skin Musculoskeletal: No Chest Wall Tenderness Extremities: No Clubbing, No Cyanosis, Normal Pulses, Other (2+ bilateral lower extremity pitting edema. ) Results 12/29/16 00:56 12/29/16 00:56 Lab Results Active Medications Albuterol Sulfate (Proventil Neb) 2.5 mg IH Q2H PRN; Protocol PRN Reason: Shortness Of Breath/Wheezing Stop: 06/30/17 04:11 Albuterol/Ipratropium (Duoneb) 3 ml IH [id number] [facility] Stop: 06/28/17 20:01 Last Admin: 12/29/16 07:36 Dose: 3 ml Aspirin (Aspirin) 325 mg PO DAILY [facility] Stop: 06/28/17 09:01 Last Admin: 12/29/16 08:04 Dose: 325 mg Atorvastatin Calcium (Lipitor) 40 mg PO HS [facility] Stop: 06/26/17 21:01 Last Admin: 12/28/16 20:29 Dose: 40 mg Budesonide/Formoterol Fumarate (Symbicort) 2 puff IH BIDR [facility] PRN Reason: Protocol Stop: 06/29/17 10:01 Last Admin: 12/29/16 07:36 Dose: Not Given Carvedilol (Coreg) 12.5 mg PO BIDWM [facility] PRN Reason: Protocol Stop: 06/27/17 17:01 Last Admin: 12/29/16 08:04 Dose: 12.5 mg Chlorthalidone (Chlorthalidone) 25 mg PO DAILY [facility] Stop: 06/27/17 09:01 Last Admin: 12/27/16 07:59 Dose: 25 mg Dextrose/Water (Dextrose 50% (Syg)) 25 ml IVP AD PRN PRN Reason: Hypoglycemia Stop: 06/26/17 20:57 Dextrose/Water (Dextrose 50% (Syg)) 25 ml IVP Q15MIN PRN PRN Reason: Hypoglycemia Stop: 06/27/17 13:26 Dextrose/Water (Dextrose 50% (Syg)) 25 ml IVP AD PRN PRN Reason: Hypoglycemia Stop: 06/29/17 09:00 Fluoxetine HCl (Prozac) 20 mg PO DAILY [facility] PRN Reason: Protocol Stop: 06/27/17 09:01 Last Admin: 12/29/16 08:04 Dose: 20 mg Furosemide (Lasix) 40 mg IVP BIDDIURETIC [facility] Stop: 06/27/17 11:16 Last Admin: 12/29/16 08:04 Dose: 40 mg Gabapentin (Neurontin) 300 mg PO TID [facility] Stop: 06/26/17 21:01 Last Admin: 12/29/16 08:04 Dose: 300 mg Glucagon (Glucagen) 1 mg IM ONCE PRN PRN Reason: Hypoglycemia Stop: 06/26/17 20:57 Glucagon (Glucagen) 1 mg IM ONCE PRN PRN Reason: Hypoglycemia Stop: 06/29/17 09:00 Glucose (Gluctose) 15 gm PO ONCE PRN PRN Reason: Hypoglycemia Stop: 06/26/17 20:57 Glucose (Gluctose) 30 gm PO ONCE PRN PRN Reason: Hypoglycemia Stop: 06/26/17 20:57 Glucose (Gluctose) 15 gm PO ONCE PRN PRN Reason: Hypoglycemia Stop: 06/29/17 09:00 Glucose (Gluctose) 30 gm PO ONCE PRN PRN Reason: Hypoglycemia Stop: 06/29/17 09:00 Heparin Sodium (Porcine) (Heparin) 5,000 unit SQ Q8HCO [facility] Stop: 06/27/17 14:01 Last Admin: 12/29/16 04:03 Dose: 5,000 unit Dextrose (Dextrose 5%) 1,000 mls @ 100 mls/hr IVC .Q10H PRN PRN Reason: HYPOGLYCEMIA Stop: 06/26/17 20:57 Dextrose/Sodium Chloride (D5% And 0.45% Nacl 1000 Ml Bag) 1,000 mls @ 100 mls/ hr IVC .Q10H PRN PRN Reason: See comments Stop: 06/27/17 13:26 Dextrose (Dextrose 5%) 1,000 mls @ 100 mls/hr IVC .Q10H PRN PRN Reason: HYPOGLYCEMIA Stop: 06/29/17 09:00 Insulin Detemir (Levemir) 45 unit SQ QAM [facility] Stop: 06/27/17 09:01 Last Admin: 12/29/16 08:03 Dose: 45 unit Insulin Detemir (Levemir) 40 unit SQ HS [facility] Stop: 06/27/17 21:01 Last Admin: 12/28/16 20:28 Dose: 40 unit Insulin Human Lispro (Humalog) 10 units 0.05 units/kg (10 units) SQ TIDWM [facility] Stop: 06/29/17 12:01 Last Admin: 12/29/16 08:03 Dose: 10 units Insulin Human Lispro (Humalog) 0 units SQ TIDAC [facility] PRN Reason: Protocol Stop: 06/29/17 11:31 Last Admin: 12/29/16 08:04 Dose: 8 units Insulin Human Lispro (Humalog) 0 units SQ HS [facility] PRN Reason: Protocol Stop: 06/29/17 21:01 Last Admin: 12/28/16 20:29 Dose: 3 units Isosorbide Mononitrate (Imdur) 30 mg PO DAILY [facility] Stop: 06/27/17 11:16 Last Admin: 12/29/16 08:04 Dose: 30 mg Naloxone HCl (Narcan) 0.4 mg IVP Q2MIN PRN PRN Reason: Opioid Reversal Stop: 06/26/17 20:55 Oxycodone HCl (Roxicodone) 5 mg PO QID [facility] Stop: 06/26/17 21:01 Last Admin: 12/29/16 08:04 Dose: 5 mg Laboratory Tests 07/31/16 11/29/16 12/25/16 08:59 11:08 17:12 Hgb ABG pH ABG pCO2 Creatinine 1.11 1.18 2.51 H Troponin I B-Natriuretic Peptide 08/10/17 08/10/17 08/11/17 17:12 17:12 00:02 Hgb ABG pH ABG pCO2 Creatinine Troponin I 0.36 H* 0.27 H* B-Natriuretic Peptide 318 H 12/26/16 12/26/16 12/29/16 06:17 11:53 00:56 Hgb 11.3 L ABG pH ABG pCO2 Creatinine Troponin I 0.17 H* 0.16 H* B-Natriuretic Peptide 12/29/16 12/29/16 00:56 03:35 Hgb ABG pH 7.30 L ABG pCO2 77 H* Creatinine 1.68 H Troponin I B-Natriuretic Peptide - Imaging and Cardiology Chest Xray: report reviewed Echo: report reviewed - EKG Interpretation EKG results cardiology: other (Telemetry reviewed with average HR 84, sinus rhythm. PVCs and PACs noted.) - VTE Reasons for not Prescribing Prophylaxis: Not indicated-Anticoagulated or INR therapeutic Consult Discharge Plan - Plan Referrals: Sandi Noland CNP [Primary Care Provider] - 01/05/17 10:40 am Sandy Bright CNP [Advanced Practice Nurse] - 01/07/17 3:30 pm
--- NOTE | 2016-12-29 12:48 | Pulmonology Progress Note ---
Date of Encounter: 12/29/16 Time of Encounter: 10:30 Assessment and Plan (1) Acute hypoxemic respiratory failure Current Visit: Yes Status: Acute He is tolerating BiPAP and to wean FiO2 to keep SPO2 around 90%. Patient was qualified for BiPAP noninvasive ventilation and he will need outpatient follow- up workup. (2) Acute respiratory failure with hypercapnia Current Visit: Yes Status: Acute (3) Suspected sleep apnea Current Visit: Yes Status: Chronic Patient is high risk for sleep disordered breathing and he will need outpatient follow-up we will order a sleep study for him. (4) Obesity hypoventilation syndrome Current Visit: Yes Status: Chronic Subjective Principal diagnosis: Elevated troponin/LUISITO Interval history: Patient remain on BiPAP and possibly he will have cardiac catheterization. Patient denies any symptoms. Objective PUL Vital signs: Last Vital Signs Temp 97.4 F L 12/29/16 12:00 Pulse 81 12/29/16 12:00 Resp 16 12/29/16 12:00 BP 152/81 12/29/16 12:00 Pulse Ox 97 12/29/16 12:00 General appearance: no acute distress Eyes: nonicteric Neck: supple Effort: normal Auscultation: bilateral: diminished breath sounds Cardiovascular: regular rate and rhythm Gastrointestinal: normoactive bowel sounds, non-distended Extremities: edema normal mental status, non-focal exam mood appropriate Ventilator Settings Ventilator Settings: Patient is on BiPAP Results - Laboratory Findings CBC and BMP: 12/29/16 00:56 12/29/16 00:56 ABG ABG pH 7.30 pH Units (7.32-7.45) L 12/29/16 03:35 ABG pCO2 77 mmHg (35-45) H* 12/29/16 03:35 ABG pO2 124 mmHg (85-104) H 12/29/16 03:35 ABG O2 Saturation 99 % (95-98) H 12/29/16 03:35 PT/INR, D-dimer PT 13.5 Seconds (9.4-12.1) H 12/25/16 17:12 D-Dimer 1204 ng/mLFEU (0-500) H 12/27/16 00:48 Abnormal lab findings: Abnormal lab results Hgb 11.3 g/dL (12.9-16.9) L 12/29/16 00:56 MCH 26.9 pg (28.0-33.3) L 12/29/16 00:56 MCHC 29.2 g/dL (31.6-35.5) L 12/29/16 00:56 RDW 14.6 % (11.5-14.5) H 12/29/16 00:56 Nucleated RBCs/100 WBC 0.5 /100 WBC (0) H 12/25/16 17:12 PT 13.5 Seconds (9.4-12.1) H 12/25/16 17:12 APTT 43.5 Seconds (26.0-36.0) H 12/26/16 08:01 D-Dimer 1204 ng/mLFEU (0-500) H 12/27/16 00:48 ABG pH 7.30 pH Units (7.32-7.45) L 12/29/16 03:35 ABG pCO2 77 mmHg (35-45) H* 12/29/16 03:35 ABG pO2 124 mmHg (85-104) H 12/29/16 03:35 ABG HCO3 37.9 mEQ/L (21-27) H 12/29/16 03:35 ABG Total CO2 40.3 mEq/L (20-26) H 12/29/16 03:35 ABG O2 Saturation 99 % (95-98) H 12/29/16 03:35 ABG Base Excess 9.0 mEq/L (-2.0 to 3.0) H 12/29/16 03:35 VBG pH 7.17 pH Units (7.32-7.42) L* 12/26/16 17:12 VBG pCO2 88 mmHg (41-51) H 12/26/16 17:12 VBG pO2 43 mmHg (25-40) H 12/26/16 17:12 VBG HCO3 32.1 mEq/L (21-27) H 12/26/16 17:12 Potassium 4.8 mEq/L (3.5-4.5) H 12/29/16 00:56 Carbon Dioxide 32 mEq/L (19-29) H 12/29/16 00:56 BUN 64 mg/dL (8-26) H 12/29/16 00:56 Creatinine 1.68 mg/dL (0.72-1.25) H 12/29/16 00:56 Est GFR ( Amer) 51 (> 60) L 12/29/16 00:56 Est GFR (Non-Af Amer) 42 (> 60) L 12/29/16 00:56 BUN/Creatinine Ratio 38 (6-26) H 12/29/16 00:56 Glucose 241 mg/dL (70-99) H 12/29/16 00:56 POC Glucose 219 (58-89) H 12/29/16 04:04 Hemoglobin A1c 11.9 % (-5.6) H 12/26/16 11:53 Calculated Osmolality 318 (280-300) H 12/29/16 00:56 Calcium 8.5 mg/dL (8.6-10.8) L 12/29/16 00:56 Phosphorus 5.3 mg/dL (2.3-4.7) H 12/27/16 00:48 Troponin I 0.16 ng/mL (0-0.03) H* 12/26/16 11:53 B-Natriuretic Peptide 318 pg/mL (0-100) H 12/25/16 17:12 Albumin 2.5 g/dL (3.5-5.0) L 12/27/16 00:48 Globulin 4.7 g/dL (2.4-3.5) H 12/27/16 00:48 Albumin/Globulin Ratio 0.5 (1.1-2.2) L 12/27/16 00:48 - Diagnostic Findings Chest x-ray: report reviewed, image reviewed - Clinical Findings Intake & Output: Intake & Output 12/28/16 12/29/16 12/29/16 23:59 07:59 15:59 Intake Total 240 / 240 0 / 0 0 / 0 Output Total 3700 / 3700 850 / 850 5600 / 5600 Balance -3460 / -3460 -850 / -850 -5600 / -5600 - VTE Reasons for not Prescribing Prophylaxis: Not indicated-Anticoagulated or INR therapeutic Consult Discharge Plan - Plan Referrals: Sandi Noland CNP [Primary Care Provider] - 01/05/17 10:40 am Sandy Bright CNP [Advanced Practice Nurse] - 01/07/17 3:30 pm
[2016-12-30] MEDS: Ipratropium/Albuterol Neb 3 ML IH SCH ×7 (00:23→23:46)
[2016-12-30] MEDS: *HR* Heparin 5,000 UNIT/ML VIAL SQ SCH ×3 (05:02→21:31)
[2016-12-30 07:40] LABS: BUN/Creatinine Ratio 45 (6-26); Blood Urea Nitrogen 57 mg/dL (8-26); Calcium 8.8 mg/dL (8.6-10.8); Carbon Dioxide 36 mEq/L (19-29); Chloride 99 mEq/L (98-109); Glucose 340 mg/dL (70-99); Magnesium 2.1 mg/dL (1.6-2.6); Osmolality,Calculated 321 (280-300); Potassium 4.5 mEq/L (3.5-4.5); Sodium 141 mEq/L (136-145); eGFR For African Americans > 60 (> 60); eGFR For Non-African Americans 58 (> 60)
[2016-12-30] MEDS: Insulin LISPRO 300 UNITS/3 ML VIAL SQ SCH ×7 (08:02→21:32)
[2016-12-30] MEDS: Aspirin Enteric Coated 81 MG Tablet PO SCH (08:43)
[2016-12-30] MEDS: FLUoxetine 20 MG CAPSULE PO SCH (08:43)
[2016-12-30] MEDS: *HR* OxyCODONE Immed Rel 5 MG TABLET PO SCH ×4 (08:43→21:32)
[2016-12-30] MEDS: Gabapentin 300 MG CAPSULE PO SCH ×3 (08:43→21:32)
[2016-12-30] MEDS: Insulin DETEMIR 100 UNIT/ML X5UNITS SQ SCH ×2 (08:44→21:32)
[2016-12-30] MEDS: Furosemide 40 MG/4 ML VIAL IVP SCH ×2 (08:44→17:06)
[2016-12-30] MEDS: Isosorbide MONOnitrate (24 HR) 30 MG TAB.ER.24H PO SCH (08:44)
--- NOTE | 2016-12-30 09:03 | Internal Med Progress Note ---
Date of Encounter: 12/30/16 Time of Encounter: 08:15 - Assessment and plan (1) Non-STEMI (non-ST elevated myocardial infarction) Current Visit: Yes Status: Acute Assessment and plan: Patient presented with shortness of breath, possible anginal equivalent - likely non-ST elevation KS and type II demand ischemia Risk factors include hypertension, hyperlipidemia, diabetes, [id number] history of smoking, physical deconditioning Troponin elevation, peak troponin at 0.36 Cardiology follow-up appreciated EKG - no acute ischemic changes [facility] scheduled for today - patient did have difficulty laying flat and continues to require BiPAP support for several hours each day continue ASA, beta abhishek, Statin Echocardiogram - technically difficult and poor quality study, however shows possibly dilated left ventricle with decreased systolic function, mild diastolic dysfunction Cardiac telemetry, pulse ox, labs in a.m. (2) Acute kidney injury Current Visit: Yes Status: Acute Assessment and plan: Acute kidney injury on CTD stage III - secondary to dehydration and CHF Creatinine slowly improving - 1.26 today, seems to be back to baseline Avoid nephrotoxic agents (3) COPD exacerbation Current Visit: Yes Status: Acute Assessment and plan: Acute hypoxic respiratory failure with hypercapnia - secondary to COPD exacerbation, obstructive hypoventilation and suspected obstructive sleep apnea Continue BiPAP Continue DuoNeb breathing treatment, Symbicort Pulmonology following - recommendations reviewed, appreciate input (4) CHF (congestive heart failure) Current Visit: Yes Status: Acute Assessment and plan: Likely undiagnosed and untreated CHF given his chronic pedal edema BNP - 318 Continue Imdur, Coreg and Lasix, fluid restriction Echocardiogram reviewed Plan for [facility] today for ischemia evaluation Qualifiers: Congestive heart failure type: combined Congestive heart failure chronicity : acute on chronic Qualified Code(s): I50.43 - Acute on chronic combined systolic (congestive) and diastolic (congestive) heart failure (5) Suspected sleep apnea Current Visit: Yes Status: Chronic Assessment and plan: Outpatient follow-up for sleep study (6) Obesity hypoventilation syndrome Current Visit: Yes Status: Chronic Assessment and plan: Continue BiPAP, adjust settings according to ABG (7) DMII (diabetes mellitus, type 2) Current Visit: Yes Status: Chronic Assessment and plan: Diabetes mellitus type 2, insulin-dependent, hyperglycemia Continue insulin sliding scale, Levemir, glucose checks Qualifiers: Diabetes mellitus complication status: with kidney complications Diabetes mellitus complication detail: with chronic kidney disease Diabetes mellitus it security administrator insulin use: with it security administrator use Chronic kidney disease stage: stage 3 (moderate) Qualified Code(s): E11.22 - Type 2 diabetes mellitus with diabetic chronic kidney disease; N18.3 - Chronic kidney disease, stage 3 ( moderate); Z79.4 - [place] (current) use of insulin (8) Morbid obesity with BMI of 50.0-59.9, adult Current Visit: Yes Status: Chronic (9) Physical deconditioning Current Visit: Yes Status: Chronic Assessment and plan: Consult physical therapy (10) DVT prophylaxis Current Visit: No Status: Acute Assessment and plan: Continue heparin subcutaneous - Time Spent With Patient 25 - 35 minutes - Subjective Interval history: Patient awake and alert. Not in any0 distress. Patient has been doing well on BiPAP. Switched to nasal cannula this morning. Patient denies chest pain and denies shortness of breath. Good urine output. ABG pending this morning. Hemodynamically stable. No fever. No other acute events or complaints. Left heart catheter scheduled for today. - Constitutional Vitals: Temp Pulse Resp BP Pulse Ox 97.6 F 84 20 112/60 96 12/30/16 07:13 12/30/16 08:08 12/30/16 07:37 12/30/16 07:13 12/30/16 08:08 General appearance: Present: A&O X 3, morbidly obese, pleasant, no acute distress, answers questions appropriately - Head Head exam: Present: atraumatic - Eye Eye exam: Present: EOMI - ENT ENT exam: Present: mucous membranes dry - Respiratory Respiratory exam: Present: decreased breath sounds (Slightly decreased in both bases), rhonchi (Mild scattered rhonchi bilaterally). Absent: accessory muscle use, rales, wheezes, tachypnea - Cardiovascular Cardiovascular exam: Present: RRR, +S1, +S2 - GI/Abdominal GI/Abdominal exam: Present: soft (Obese). Absent: distended, firm, guarding, rigid, tenderness - Extremities Exam Extremities exam: Present: pedal edema (Bilateral lower leg pedal edema 3+ pitting with mild stasis dermatitis), radial pulses palpable and symmetrical. Absent: cyanotic - Neurological Exam Neurological exam: Present: alert, oriented X3, no focal deficits. Absent: facial droop, speech deficit Internal Medicine: Result - Labs CBC & Chem 7: 12/29/16 00:56 12/30/16 06:24 Labs: BMP 12/30/16 06:24 Sodium 141 Potassium 4.5 Chloride 99 Carbon Dioxide 36 H BUN 57 H Creatinine 1.26 H Glucose 340 H Calcium 8.8 - ABG Interpretation ABG results: ABG ABG pH 7.30 pH Units (7.32-7.45) L 12/29/16 03:35 ABG pCO2 77 mmHg (35-45) H* 12/29/16 03:35 ABG pO2 124 mmHg (85-104) H 12/29/16 03:35 ABG O2 Saturation 99 % (95-98) H 12/29/16 03:35 PT/INR, D-dimer PT 13.5 Seconds (9.4-12.1) H 12/25/16 17:12 D-Dimer 1204 ng/mLFEU (0-500) H 12/27/16 00:48 - VTE Reasons for not Prescribing Prophylaxis: Not indicated-Anticoagulated or INR therapeutic Consult Discharge Plan - Plan Referrals: Sandi Noland CNP [Primary Care Provider] - 01/05/17 10:40 am Sandy Bright CNP [Advanced Practice Nurse] - 01/07/17 3:30 pm
[2016-12-30 09:55] LABS: ABG Base Excess 12.5 mEq/L (-2.0 to 3.0); ABG HCO3 40.7 mEQ/L (21-27); ABG Oxygen Saturation 98 % (95-98); ABG PH 7.36 pH Units (7.32-7.45); ABG PO2 106 mmHg (85-104); ABG TCO2 42.9 mEq/L (20-26)
[2016-12-30 09:57] LABS: ABG PCO2 72 mmHg (35-45); Blood Gas FiO2 50 %
[2016-12-30] MEDS: Budesonide/Formoterol 160/4.5 MDI IH SCH ×2 (11:08→20:13)
--- NOTE | 2016-12-30 17:19 | Cardiology Progress Note ---
Date of Encounter: 12/30/16 Time of Encounter: 17:17 Assessment and Plan (1) Elevated troponin Current Visit: Yes Status: Acute Per cardiology: -Elevated troponin with downward trend in the setting of LUISITO; likely NSTEMI type II demand ischmia-nondiagnostic for ACS. -No acute ischemic ECG changes noted, patient is chest pain free. -TTE 12/26/16: poor quality study due to body habitus, LV function appears reduced. -Patient did not have ischemic evaluation at [facility] during hospitalization in 2016. -Patient dose have multiple risk factors for CAD including HTN, HLD, DM, and 35 pack year history of smoking. -Patient is severely deconditioned at baseline with very little activity as well. -On asa, statin, beta abhishek. Hypertesive today, will increase beta abhishek. -Patient's ABG today with pH 7.36, pCO2 72. Patient on Bipap with FiO2 50%. Patient states he does not think that he would be able to lay flat for LHC today. -Ideally recommend ischemic evaluation prior to discharge; he is not a candidate for stress at [facility] due to body habitus. -Will make NPO after MN tonight for possible LHC if renal function and respiratory status continues to improve. -Will continue to monitor. (2) LUISITO (acute kidney injury) Current Visit: Yes Status: Acute Per cardiology: -Midly improved this AM, creatinine 1.26 today. -Continue diuresis. -net negative 10,573 mL this admission, patient states his breathing has significant improved since admission. -Appreciate Nephrology recommendations. (3) Dyspnea Current Visit: Yes Status: Acute Per cardiology: -Dyspnea likely mutltfactorial in etiology. -Suspect symptoms largely secondary to severe, untreated COSMO and OHS -Bilateral LE negative for acute thrombus; noted to be a difficult study due to body habitus. VQ scan showed low probability for PE. -On Bipap with FiO2 50%. -Appreciate Pulm. recommendations. Qualifiers: Dyspnea type: shortness of breath Qualified Code(s): R06.02 - Shortness of breath; R06.00 - Dyspnea, unspecified; R06.01 - Orthopnea Discussion w patient/family: The assessment and plan as outlined above was discussed with the patient who expressed understanding and agreement. All questions were answered. Thank you for involving us in the care of your patient. Please call with any questions. Discussed and reviewed with . Subjective Principal diagnosis: Elevated troponin/LUISITO Interval history: Patient denies chest pain overnight. Reports shortness of breath. Patient wearing Bipap this morning and states he wore all night. Patient feels like he could lay flat and states breathing has mildly improved. Objective Vital Signs, Last 4 Hours Temp Pulse Resp BP Pulse Ox 12/30/16 16:28 18 95 12/30/16 16:05 98.0 F 70 18 137/87 95 12/30/16 15:36 78 General: Conversant, No Apparent Distress HEENT: Atraumatic, Normocephaly, Mucus Membranes Moist Neck: No JVD, Normal carotid pulses Cardiac: Reg Rate and Rhythm, Normal S1 and S2, No Murmur Lungs: Other (Lung sounds diminished througout) Neuro: Alert and responsive, No focal deficits noted Abdomen: Soft, Non-Tender Skin: No rashes noted on visualized skin Musculoskeletal: No Chest Wall Tenderness Extremities: No Clubbing, No Cyanosis, Normal Pulses, Other (2+ bilateral lower extremity pitting pedal edema. ) Results 12/29/16 00:56 12/30/16 06:24 Lab Results Active Medications Albuterol Sulfate (Proventil Neb) 2.5 mg IH Q2H PRN; Protocol PRN Reason: Shortness Of Breath/Wheezing Stop: 06/30/17 04:11 Albuterol/Ipratropium (Duoneb) 3 ml IH [id number] [facility] Stop: 06/28/17 20:01 Last Admin: 12/30/16 16:27 Dose: 3 ml Aspirin (Aspirin Ec) 81 mg PO DAILY [facility] Stop: 07/01/17 09:01 Last Admin: 12/30/16 08:43 Dose: 81 mg Atorvastatin Calcium (Lipitor) 40 mg PO HS [facility] Stop: 06/26/17 21:01 Last Admin: 12/29/16 20:33 Dose: 40 mg Budesonide/Formoterol Fumarate (Symbicort) 2 puff IH BIDR [facility] PRN Reason: Protocol Stop: 06/29/17 10:01 Last Admin: 12/30/16 11:08 Dose: 2 puff Carvedilol (Coreg) 25 mg PO BIDWM [facility] PRN Reason: Protocol Stop: 06/30/17 17:01 Last Admin: 12/30/16 17:06 Dose: 25 mg Chlorthalidone (Chlorthalidone) 25 mg PO DAILY [facility] Stop: 06/27/17 09:01 Last Admin: 12/27/16 07:59 Dose: 25 mg Dextrose/Water (Dextrose 50% (Syg)) 25 ml IVP AD PRN PRN Reason: Hypoglycemia Stop: 06/26/17 20:57 Dextrose/Water (Dextrose 50% (Syg)) 25 ml IVP Q15MIN PRN PRN Reason: Hypoglycemia Stop: 06/27/17 13:26 Dextrose/Water (Dextrose 50% (Syg)) 25 ml IVP AD PRN PRN Reason: Hypoglycemia Stop: 06/29/17 09:00 Fluoxetine HCl (Prozac) 20 mg PO DAILY SHINE PRN Reason: Protocol Stop: 06/27/17 09:01 Last Admin: 12/30/16 08:43 Dose: 20 mg Furosemide (Lasix) 40 mg IVP BIDDIURETIC [facility] Stop: 06/27/17 11:16 Last Admin: 12/30/16 17:06 Dose: 40 mg Gabapentin (Neurontin) 300 mg PO TID [facility] Stop: 06/26/17 21:01 Last Admin: 12/30/16 15:45 Dose: 300 mg Glucagon (Glucagen) 1 mg IM ONCE PRN PRN Reason: Hypoglycemia Stop: 06/26/17 20:57 Glucagon (Glucagen) 1 mg IM ONCE PRN PRN Reason: Hypoglycemia Stop: 06/29/17 09:00 Glucose (Gluctose) 15 gm PO ONCE PRN PRN Reason: Hypoglycemia Stop: 06/26/17 20:57 Glucose (Gluctose) 30 gm PO ONCE PRN PRN Reason: Hypoglycemia Stop: 06/26/17 20:57 Glucose (Gluctose) 15 gm PO ONCE PRN PRN Reason: Hypoglycemia Stop: 06/29/17 09:00 Glucose (Gluctose) 30 gm PO ONCE PRN PRN Reason: Hypoglycemia Stop: 06/29/17 09:00 Heparin Sodium (Porcine) (Heparin) 5,000 unit SQ Q8HCO [facility] Stop: 06/27/17 14:01 Last Admin: 12/30/16 15:47 Dose: 5,000 unit Dextrose (Dextrose 5%) 1,000 mls @ 100 mls/hr IVC .Q10H PRN PRN Reason: HYPOGLYCEMIA Stop: 06/26/17 20:57 Dextrose/Sodium Chloride (D5% And 0.45% Nacl 1000 Ml Bag) 1,000 mls @ 100 mls/ hr IVC .Q10H PRN PRN Reason: See comments Stop: 06/27/17 13:26 Dextrose (Dextrose 5%) 1,000 mls @ 100 mls/hr IVC .Q10H PRN PRN Reason: HYPOGLYCEMIA Stop: 06/29/17 09:00 Insulin Detemir (Levemir) 50 unit SQ HS [facility] Stop: 06/27/17 21:01 Last Admin: 12/29/16 20:32 Dose: 50 unit Insulin Detemir (Levemir) 55 unit SQ QAM [facility] Stop: 07/01/17 09:01 Last Admin: 12/30/16 08:44 Dose: 55 unit Insulin Human Lispro (Humalog) 10 units 0.05 units/kg (10 units) SQ TIDWM [facility] Stop: 06/29/17 12:01 Last Admin: 12/30/16 17:07 Dose: Not Given Insulin Human Lispro (Humalog) 0 units SQ TIDAC [facility] PRN Reason: Protocol Stop: 06/29/17 11:31 Last Admin: 12/30/16 17:06 Dose: 4 units Insulin Human Lispro (Humalog) 0 units SQ [facility] PRN Reason: Protocol Stop: 06/29/17 21:01 Last Admin: 12/29/16 20:33 Dose: 7 units Isosorbide Mononitrate (Imdur) 30 mg PO DAILY [facility] Stop: 06/27/17 11:16 Last Admin: 12/30/16 08:44 Dose: 30 mg Naloxone HCl (Narcan) 0.4 mg IVP Q2MIN PRN PRN Reason: Opioid Reversal Stop: 06/26/17 20:55 Oxycodone HCl (Roxicodone) 5 mg PO QID [facility] Stop: 06/26/17 21:01 Last Admin: 12/30/16 15:45 Dose: 5 mg Laboratory Tests 12/29/16 12/30/16 12/30/16 00:56 06:24 09:50 Hgb 11.3 L ABG pH 7.36 ABG pCO2 72 H* Creatinine 1.26 H - Imaging and Cardiology Chest Xray: report reviewed Echo: report reviewed Cardiac cath: pending - EKG Interpretation EKG results cardiology: other (Telemetry reviewed with average HR 77, sinus rhythm. PVCs and PACs noted.) - VTE Reasons for not Prescribing Prophylaxis: Not indicated-Anticoagulated or INR therapeutic Consult Discharge Plan - Plan Referrals: Sandi Noland CNP [Primary Care Provider] - 01/05/17 10:40 am Sandy Bright CNP [Advanced Practice Nurse] - 01/07/17 3:30 pm
[2016-12-30] MEDS: Nystatin POWDER 30 GM BOTTLE TP SCH (21:31)
[2016-12-31 03:23] LABS: Basophils % 0.5 %; Eosinophils # 0.1 K/mcL (0.0-0.6); Eosinophils % 1.4 %; Hematocrit 37.3 % (37.5-50.1); Hemoglobin 11.1 g/dL (12.9-16.9); Immature Granulocytes % 0.3 % (0-4); Immature Platelets 2.5 % (1.1-6.1); Lymphocytes % 23.1 %; Mean Corpuscular HGB Conc 29.8 g/dL (31.6-35.5); Mean Corpuscular Hemoglobin 27.2 pg (28.0-33.3); Mean Corpuscular Volume 91.4 fL (83.0-100.0); Monocytes # 0.8 K/mcL (0.0-1.3); Monocytes % 9.7 %; Neutrophils # 5.6 K/mcL (1.6-8.9); Platelet Count 336 K/mcL (140-400); Red Blood Count 4.08 M/mcL (4.19-5.50); Red Cell Distribution Width 14.4 % (11.5-14.5)
[2016-12-31 03:34] LABS: BUN/Creatinine Ratio 47 (6-26); Blood Urea Nitrogen 52 mg/dL (8-26); Chloride 98 mEq/L (98-109); Glucose 320 mg/dL (70-99); Osmolality,Calculated 320 (280-300); Potassium 4.3 mEq/L (3.5-4.5); Sodium 142 mEq/L (136-145); eGFR For African Americans > 60 (> 60); eGFR For Non-African Americans > 60 (> 60)
[2016-12-31 03:39] LABS: Carbon Dioxide 40 mEq/L (19-29)
[2016-12-31] MEDS: Ipratropium/Albuterol Neb 3 ML IH SCH ×6 (03:59→22:57)
[2016-12-31 04:05] LABS: ABG Base Excess 16.2 mEq/L (-2.0 to 3.0); ABG HCO3 44.4 mEQ/L (21-27); ABG Oxygen Saturation 98 % (95-98); ABG PH 7.38 pH Units (7.32-7.45); ABG PO2 102 mmHg (85-104); ABG TCO2 46.7 mEq/L (20-26)
[2016-12-31 04:06] LABS: Blood Gas FiO2 40 %
[2016-12-31 04:07] LABS: ABG PCO2 75 mmHg (35-45)
[2016-12-31] MEDS: *HR* Heparin 5,000 UNIT/ML VIAL SQ SCH ×3 (05:27→20:52)
[2016-12-31] MEDS: Budesonide/Formoterol 160/4.5 MDI IH SCH ×2 (07:42→19:42)
[2016-12-31] MEDS: Furosemide 40 MG/4 ML VIAL IVP SCH (09:06)
[2016-12-31] MEDS: Insulin LISPRO 300 UNITS/3 ML VIAL SQ SCH ×7 (09:07→21:40)
[2016-12-31] MEDS: FLUoxetine 20 MG CAPSULE PO SCH (09:07)
[2016-12-31] MEDS: Gabapentin 300 MG CAPSULE PO SCH ×3 (09:07→20:52)
[2016-12-31] MEDS: *HR* OxyCODONE Immed Rel 5 MG TABLET PO SCH ×4 (09:07→20:52)
[2016-12-31] MEDS: Aspirin Enteric Coated 81 MG Tablet PO SCH (09:10)
[2016-12-31] MEDS: Isosorbide MONOnitrate (24 HR) 30 MG TAB.ER.24H PO SCH (09:10)
[2016-12-31] MEDS: Insulin DETEMIR 100 UNIT/ML X5UNITS SQ SCH ×2 (09:11→20:52)
[2016-12-31] MEDS: Nystatin POWDER 30 GM BOTTLE TP SCH ×2 (09:11→20:53)
--- NOTE | 2016-12-31 09:39 | Event Note ---
Date of Encounter: 12/31/16 Time of Encounter: 08:45 - Cardiology Event Note Creatinine improved. On nasal cannula this morning, states breathing has improved. Patient states he feels he can lay flat. Of note, patient weight today recorded at 226kg, however bed tail puller and hover mat added to bed without being re-zeroed. Previously weight had been recorded at 213kg. and aquatic laborer staff made aware of recorded weights and difference in additions to bed. and aquatic laborer staff made aware of patient has been mostly Bipap dependent since admission and potential need for Bipap during LHC. Risks versus benefits of LHC explained to patient. Patient states understanding and agreeable to proceed with LHC. Further recommendations pending LHC.
[2016-12-31] MEDS ORDERED: 0.9 % Sodium Chloride 1,000 ML ONE (10:49)
[2016-12-31] MEDS ORDERED: Verapamil 5 MG/2 ML VIAL ONE (10:49)
[2016-12-31] MEDS ORDERED: Heparin 1,000 UNITS/500 mL NS 500 ML ONE (10:50)
[2016-12-31] MEDS ORDERED: *HR* Heparin 10,000 UNIT/10 ML VIAL ONE (10:50)
[2016-12-31] MEDS ORDERED: Nitroglycerin 1,000 MCG/10 ML VIAL IV ONE (10:50)
[2016-12-31] MEDS ORDERED: *HR* Midazolam HCl 2 MG/2 ML VIAL ONE (11:11)
[2016-12-31] MEDS ORDERED: *HR* FentaNYL (PF) 100 MCG/2 ML VIAL ONE (11:12)
--- NOTE | 2016-12-31 11:19 | Pre-Sedation Evaluation ---
Pre-sedation evaluation - Pre-sedation checklist Date of procedure: 12/31/16 Procedure: left heart catheterization Recent Vitals: Last Vital Signs Temp 97.5 F L 12/31/16 07:38 Pulse 74 12/31/16 08:44 Resp 14 12/31/16 08:44 BP 155/78 12/31/16 07:38 Pulse Ox 95 12/31/16 08:44 H&P (including ROS) documented in medical record: Yes Previous reaction to sedatives/anesthetics: No Dietary Status: NPO after Midnight Dentition: poor dentition Possible difficult airway: Yes If Yes;: Morbid obesity ASA Classification *see protocol: CLASS II-Mild systemic disease Plan of Care: Pt appropriate candidate for procedure/moderate/conscious sedation , Risks/benefits of procedure/sedation discussed w/ patient/family
--- NOTE | 2016-12-31 11:57 | Invasive Diagnostic Lab Proc ---
Name: Gold Stone Date of Study: 12/31/2016 Date: 1955 Ht: 75.2in Medical Record#: [id number] Age: 61 Wt: 463.24lb Gender: Male BSA: 3.14 Order #: [id number] BMI: 57.6 Physicians Procedure Physician: Edgar Mccracken MD, FACC Referring MD: Referring MD: Staff Name Position Time In Johana Keen RT (R) Monitor 11:09 AM Shari Diaz RN Chocolate Coater 11:10 AM Paris Gage RN Chocolate Coater 11:10 AM Raya Read RT (R) Scrub 11:10 AM Indications Indication Non-Stemi Procedures Performed Procedure L HRT ARTERY/VENTRICLE ANGIO Pre-Procedure Checklist Informed consent is complete signed and on chart. H&P is on chart. ID band is on and ID verified with patient. Patient NPO for procedure The procedure was described for the patient and questions were answered. Blood Pressure: 181/98 ECG is on chart. Rhythm: NSR Plan of Care Patient will tolerate the procedure without complications. Adequate level of comfort will be maintained. Hemodynamics will remain stable Patient will recover from procedure without complications. Respiratory function will be maintained. Cardiac rhythm will remain stable. Patient temperature will be maintained. Patient and/or family have verbalized understanding of the procedure. Patient Education Chief Complaint/Reason for Test: Cardiac Cath Developmental Category: Adult (18-64 years) Developmentally Appropriate for Age: Yes Learning Barriers: None Education Needs: Procedure Education Method: Verbal Information Taught: Cardiac Cath Educational Evaluation: Able to repeat information Intravenous Access Time IV Size Location DC'd Fluid/Drip Rate Units RN 20g 1 05/21" Patent On Arrival Lt Wrist 0.9NaCl ml/hr Allergies No Known Allergies Vital Signs Time BP (mmHg) HR (bpm) O2 Sat. RR (bpm) LOC 11:09 AM 155 / 78 74 95 % 5 = Fully awake and oriented or at pre-proc level 11:18 AM / % 4 = Oriented but drowsy 11:18 AM / % 4 = Oriented but drowsy 11:14 AM 194 / 81 81 96 % 11 11:16 AM 181 / 98 69 94 % 20 11:21 AM 170 / 91 63 90 % 13 11:26 AM 153 / 79 76 94 % 15 11:31 AM 135 / 76 78 92 % 22 11:36 AM 163 / 99 83 93 % 21 11:41 AM 149 / 95 75 93 % 16 11:33 AM / % 4 = Oriented but drowsy Procedural Medications Time Medication Dose Units Method Given By 11:13 AM Oxygen 8 L/min nasal cannula Shari Diaz RN 11:14 AM Versed 2 mg Intravenous Shari Diaz RN 11:14 AM Fentanyl 25 mcg Intravenous Shari Diaz RN 11:20 AM Oxygen 10 L/min Oxy Mask Shari Diaz RN 11:26 AM Lidocaine 2% 0.5 ml Subcutaneous Edgar Mccracken MD, [facility] 11:27 AM Heparin 4000 units Nitroglycerin 200 mcg Verapamil 2.5 mg Intraarterial Edgar Mccracken MD, [facility] ASA Classification: CLASS II- Mild systemic disease (i.e. well-controlled diabetes, hypertension, asthma, cigarette smoking) Vanna Score Preprocedure Postprocedure Activity 2- Moves 4 extremities sustained head lift Activity 2- Moves 4 extremities sustained head lift Circulation 2- SBP +/= 20 points of pre-anesthetic level Circulation 2- SBP +/= 20 points of pre-anesthetic level Consciousness 2- Awake and alert oriented x 3 Consciousness 2- Awake and alert oriented x 3 O2 Saturation 2- Able to maintain O2 satruation of 92% on room air O2 Saturation 2- Able to maintain O2 satruation of 92% on room air Respiratory 2- Able to deep breathe and cough well Respiratory 2- Able to deep breathe and cough well Total Score 10 Total Score 10 Contrast Agent: Isovue Diagnostic Contrast: 108 ml Total Contrast: 108 ml Fluoro Dose: 547 mGy Procedure Log Time Note Enter By 11:09 AM Pt arrived to supervisor labor gang 2 at 11:09 11:10 AM Johana Keen RT (R) Position: Monitor Time in: 11: 11:10 AM Shari Diaz RN Position: Chocolate Coater Time in: 11: 11:10 AM Paris Gage RN Position: Chocolate Coater Time in: 11: 11:10 AM Raya Read RT (R) Position: Scrub Time in: 11:3 11:11 AM Patient charges- Angio tray pack, Navilyst 3mm J, Pulse Oximetry and ACIST tubing [email or web address] 11:11 AM Case Delayed No [email or web address] 11:11 AM CathStat 11:11 AM Vitals capture started with the following parameters, Patient=Adult, Interval=5 min, Initial Dflaezhn=220 mmHg, Deflation Rate=5 mmHg, Cuff placed on Left Arm 11:12 AM Recorded ECG: HR=79 Condition=Condition 1 11:13 AM Hair removed from procedure site in holding area using clippers. Right wrist prepped with Chloraprep by Paris Gage RN, safety strap applied then patient was draped. Skin intact. [email or web address] 11:13 AM Physician arrived 11:13 [email or web address] 11:13 AM ASA Class CLASS II- Mild systemic disease (i.e. well-controlled diabetes, hypertension, asthma, cigarette smoking) [email or web address] 11:13 AM Meet and jess completed [email or web address] 11:13 AM Sign in performed according to hospital policy. [email or web address] 11:13 AM Procedure start 11:13 [email or web address] 11[facility]14 AM Time: 11:13 Oxygen on at 8 L/min per nasal cannula by Shari Diaz RN [email or web address] 11:14 AM HR=81 bpm, OEDC=486/81 mmhg, SpO2=96.0 %, Resp=11 B/min 11:14 AM Time: 11:14 Versed 2 mg Intravenous Given by Shari Diaz RN [email or web address] 11:14 AM Time: 11:14 Fentanyl 25 mcg Intravenous Given by Shari Diaz RN [email or web address] 11:15 AM Vitals capture stopped. 11:15 AM Vitals capture started with the following parameters, Patient=Adult, Interval=5 min, Initial Jqgtglvi=285 mmHg, Deflation Rate=5 mmHg, Cuff placed on Left Arm 11:16 AM HR=69 bpm, LPSX=066/98 mmhg, SpO2=94.0 %, Resp=20 B/min, Comment=NSR 11:18 AM Time: 11:18 Patient comfortable and pain free: Yes [email or web address] 11:18 AM Time: 11:18LOC: 4 = Oriented but drowsy [email or web address] 11:20 AM Time: 11:20 Oxygen on at 10 L/min per Oxy Mask by Shari Diaz RN [email or web address] 11:21 AM HR=63 bpm, AHSD=264/91 mmhg, SpO2=90.0 %, Resp=13 B/min, Comment=NSR 11:23 AM Pressure channel 1 zero failed. 11:23 AM Pressure channel 1 zeroed. 11:25 AM Pressure channel 1 zeroed. 11:26 AM HR=76 bpm, PZXC=422/79 mmhg, SpO2=94.0 %, Resp=15 B/min, Comment=NSR 11: AM Time out performed according to hospital policy [email or web address] 11: AM Time: 0.5 ml Lidocaine 2% to right radial Subcutaneous Given by Edgar Mccracken MD, [facility] [email or web address] 11: AM Access obtained by percutaneous puncture. 6Fr 10cm Terumo Glidesheath sheath placed in right Radial artery. [id number] [email or web address] 11: AM Time: : Patient given 4,000 units Heparin, 200 mcg Nitroglycerin, and 2.5 mg Verapamil Intraarterial by Edgar Mccracken MD, [facility] [email or web address] 11:28 AM 0.035 260cm Navilyst 3mmJ wire [id number] [email or web address] 11:28 AM 5Fr TIG catheter inserted over the wire [facility] [email or web address] 11:31 AM HR=78 bpm, YGZB=847/76 mmhg, SpO2=92.0 %, Resp=22 B/min, Comment=NSR 11:32 AM Recorded Pressure: Ao, HR=73, Condition=Condition 1 (Aorta) Ao 92/63/76 11:32 AM RCA angiography performed in multiple views. [email or web address] 11:32 AM Catheter removed [email or web address] 11:33 AM Time: 11:18 Patient comfortable and pain free: Yes [email or web address] 11:33 AM Time: 11:18LOC: 4 = Oriented but drowsy [email or web address] 11:33 AM 5Fr FL 3.5 catheter inserted over the wire [id number] [email or web address] 11:34 AM LCA angiography performed in multiple views. [email or web address] 11:35 AM Recorded Pressure: Ao, HR=82, Condition=Condition 1 (Aorta) Ao 90/55/71 11:35 AM Coronary Dominance: Left [email or web address] 11:36 AM Lesion found in Proximal LAD. Pre Stenosis: 20 Pre OLIVA Flow: [email or web address] 11:36 AM Recorded Pressure: Ao, HR=84, Condition=Condition 1 (Aorta) Ao 105/69/86 11:36 AM HR=83 bpm, BLMI=295/99 mmhg, SpO2=93.0 %, Resp=21 B/min, Comment=NSR 11:37 AM Catheter removed [email or web address] 11:38 AM 5Fr Pigtail catheter inserted over the wire DNC [email or web address] 11:38 AM Catheter selectively placed in left ventricle [email or web address] 11:39 AM Recorded Pressure: LV, HR=93, Condition=Condition 1 (Left Ventricle) LV 99/6/26 11:39 AM Bolus angiogram of left Ventricle complete: 12 ml/sec for a total of 30 mls [email or web address] 11:40 AM Bolus angiogram of left Ventricle complete: 13 ml/sec for a total of 30 mls [email or web address] 11:41 AM Recorded Pressure: LV, Ao, HR=88, Condition=Condition 1 (Left Ventricle) LV 125/34/53, (Aorta) Ao ?/?/? 11:41 AM HR=75 bpm, AHWC=563/95 mmhg, SpO2=93.0 %, Resp=16 B/min 11:41 AM Catheter removed [email or web address] 11:43 AM Procedure completed at 11:43 [email or web address] 11:43 AM Sign out completed: Radiation Dose 546.97 mGy Fluoro Time: 2.8 Isovue 370 - 200ml contrast 108 ml given by Edgar Mccracken MD, [facility]. Complications: NoneCardiac Rehab Consult needed: Confirmed administered medications: [email or web address] 11:44 AM Isovue 370 - 200ml,1 Bottle(s) used. [email or web address] 11:44 AM Arterial sheath pulled, Vasc Band closure device used and was Successful S/N. [email or web address] 11:44 AM 11 ml air in Vasc Band. [email or web address] 11:44 AM Post ECG NSR [email or web address] 11:44 AM Post Blood Pressure 149/95 [email or web address] 11:44 AM Information taught Cardiac Cath and Vasc Band [email or web address] 11:45 AM Education needs Procedure, Plan of Care, and Disease Process [email or web address] 11:45 AM Learning barriers :None [email or web address] 11:45 AM Education Methods Verbal [email or web address] 11:45 AM Education evaluation Able to repeat information [email or web address] 11:45 AM Site status No bleeding/hematoma - Rt Wrist as reported by Raya Read RT (R) at 11:45 [email or web address] 11:45 AM Delay to floor No [email or web address] 11:45 AM Family placed in consult room. [email or web address] 11:48 AM Time: 11:33LOC: 4 = Oriented but drowsy [email or web address] 11:50 AM Report given to Fiona SANTOYO Pt taken to 2N Room #1. 11:50 [email or web address] 11:50 AM Patient out of room: 11:50 [email or web address] 11:50 AM Fluoro Time: 2.8 [email or web address] 11:50 AM Isovue 370 - 200ml contrast 108 ml given by Edgar [facility]racken MD, [facility] [email or web address] 11:50 AM Radiation Dose 546.97 mGy [email or web address] Complications Complication None Hemodynamics Pressures Site Systolic/A Wave Diastolic/V Wave Mean AO 92 63 76 AO 90 55 71 AO 105 69 86 LV 99 6 26 LV 125 34 53 AO Post Procedure Information Blood Pressure: 149/95 mmHg Rhythm: NSR Post procedural instructions were given Closure Device Time Device Success/Fail 12/31/2016 11:45:00 AM Manual Compression Successful Site Checks Time Location Status Staff Sheath In? Note 11:45 AM Rt Wrist No bleeding/hematoma Raya Read RT (R) Pulses Time Site Pre-Procedure Post-Procedure Note 12/31/2016 11:09:00 AM Bilateral radial 2+ 2 12/31/2016 11:09:00 AM Bilateral DP & PT Doppler 12/31/2016 11:20:00 AM Allens test Rt Normal plethysmography's Test Updated by Johana Keen RT(R) on 12/31/2016 11:51:00 AM electronically signed on 12/31/2016 11:52:15 AM with status of Final
[2016-12-31] MEDS ORDERED: Ondansetron 4 MG/2 ML VIAL IVP PRN (12:11)
--- NOTE | 2016-12-31 12:18 | Pre-Sedation Evaluation ---
Pre-sedation evaluation - Pre-sedation checklist Date of procedure: 12/31/16 Procedure: left heart catheterization Recent Vitals: Last Vital Signs Temp 97.5 F L 12/31/16 07:38 Pulse 84 12/31/16 12:15 Resp 14 12/31/16 08:44 BP 152/81 12/31/16 12:15 Pulse Ox 95 12/31/16 12:15 H&P (including ROS) documented in medical record: Yes Previous reaction to sedatives/anesthetics: No Dietary Status: NPO after Midnight Dentition: poor dentition ASA Classification *see protocol: CLASS II-Mild systemic disease Plan of Care: Pt appropriate candidate for procedure/moderate/conscious sedation , Risks/benefits of procedure/sedation discussed w/ patient/family
--- NOTE | 2016-12-31 13:59 | Internal Med Progress Note ---
Date of Encounter: 12/31/16 Time of Encounter: 08:00 - Assessment and plan (1) Non-STEMI (non-ST elevated myocardial infarction) Current Visit: Yes Status: Acute Assessment and plan: Non-ST elevation ND - type II demand ischemia Risk factors include HTN, HLD, DM, [id number]-[id number] history of smoking, physical deconditioning Troponin elevation, peak troponin at 0.36 Cardiology follow-up appreciated EKG - no acute ischemic changes [facility] scheduled for today - patient did have difficulty laying flat and continues to require BiPAP support for several hours each day continue ASA, beta abhishek, Statin Echocardiogram - technically difficult and poor quality study, however shows possibly dilated left ventricle with decreased systolic function, mild diastolic dysfunction Cardiac telemetry, pulse ox, labs in a.m. (2) Acute kidney injury Current Visit: Yes Status: Acute Assessment and plan: Acute kidney injury on CKD stage III - secondary to dehydration and CHF Creatinine improved - 1.11 today, seems to be back to baseline Avoid nephrotoxic agents (3) COPD exacerbation Current Visit: Yes Status: Acute Assessment and plan: Acute on chronic hypoxic respiratory failure with hypercapnia - secondary to COPD exacerbation, obstructive hypoventilation and suspected obstructive sleep apnea Continue BiPAP at night and PRN, Continue DuoNeb breathing treatment, Symbicort Pulmonology following - recommendations reviewed, appreciate input (4) CHF (congestive heart failure) Current Visit: Yes Status: Acute Assessment and plan: Likely undiagnosed and untreated CHF given his chronic pedal edema BNP - 318 Continue Imdur, Coreg and Lasix, fluid restriction Echocardiogram reviewed, [facility] today for ischemia evaluation Qualifiers: Congestive heart failure type: combined Congestive heart failure chronicity : acute on chronic Qualified Code(s): I50.43 - Acute on chronic combined systolic (congestive) and diastolic (congestive) heart failure (5) Suspected sleep apnea Current Visit: Yes Status: Chronic Assessment and plan: Outpatient follow-up for sleep study, pulmonology follow-up (6) Obesity hypoventilation syndrome Current Visit: Yes Status: Chronic Assessment and plan: Continue BiPAP at night and PRN (7) DMII (diabetes mellitus, type 2) Current Visit: Yes Status: Chronic Assessment and plan: Diabetes mellitus type 2, insulin-dependent, hyperglycemia Continue insulin sliding scale, Levemir, glucose checks Qualifiers: Diabetes mellitus complication status: with kidney complications Diabetes mellitus complication detail: with chronic kidney disease Diabetes mellitus adjunct faculty for medical terminology insulin use: with chcf use Chronic kidney disease stage: stage 3 (moderate) Qualified Code(s): E11.22 - Type 2 diabetes mellitus with diabetic chronic kidney disease; N18.3 - Chronic kidney disease, stage 3 ( moderate); Z79.4 - adjunct faculty for medical terminology (current) use of insulin (8) Morbid obesity with BMI of 50.0-59.9, adult Current Visit: Yes Status: Chronic Assessment and plan: BMI 62.5 (9) Physical deconditioning Current Visit: Yes Status: Chronic Assessment and plan: Consult physical therapy (10) DVT prophylaxis Current Visit: No Status: Acute Assessment and plan: Continue heparin subcutaneous - Time Spent With Patient 25 - 35 minutes - Subjective Interval history: Examined this morning. Patient awake and alert. Not in any distress. Doing well on BiPAP at night. Switched to nasal cannula this morning. Patient denies chest pain and denies shortness of breath. Good urine output. Hypercapnia is persistent which is likely chronic. Hemodynamically stable. No fever. No other acute events or complaints. [facility] today. - Constitutional Vitals: Temp Pulse Resp BP Pulse Ox 97.4 F L 90 16 138/124 93 12/31/16 12:07 12/31/16 13:47 12/31/16 12:07 12/31/16 13:47 12/31/16 13:47 General appearance: Present: A&O X 3, morbidly obese, pleasant, no acute distress, answers questions appropriately - Head Head exam: Present: atraumatic - Eye Eye exam: Present: EOMI - ENT ENT exam: Present: mucous membranes dry - Respiratory Respiratory exam: Present: decreased breath sounds (Slightly decreased in both bases), rhonchi (Mild scattered bilateral). Absent: accessory muscle use, rales , wheezes, tachypnea - Cardiovascular Cardiovascular exam: Present: RRR, +S1, +S2 - GI/Abdominal GI/Abdominal exam: Present: distended (Obese), soft. Absent: firm, guarding, rigid, tenderness - Extremities Exam Extremities exam: Present: pedal edema (Bilateral lower leg edema 3+ pitting mild stasis dermatitis), radial pulses palpable and symmetrical. Absent: cyanotic - Neurological Exam Neurological exam: Present: alert, oriented X3, no focal deficits. Absent: facial droop, speech deficit Internal Medicine: Result - Labs CBC & Chem 7: 12/31/16 03:03 12/31/16 03:03 Labs: Short CBC 12/31/16 Range/Units 03:03 WBC 8.6 (4.3-11.1) K/mcL Hgb 11.1 L (12.9-16.9) g/dL Hct 37.3 L (37.5-50.1) % Plt Count 336 (140-400) K/mcL Neutrophils # 5.6 (1.6-8.9) K/mcL BMP 12/31/16 03:03 Sodium 142 Potassium 4.3 Chloride 98 Carbon Dioxide 40 H* BUN 52 H Creatinine 1.11 Glucose 320 H Calcium 9.0 - ABG Interpretation ABG results: ABG ABG pH 7.38 pH Units (7.32-7.45) 12/31/16 03:55 ABG pCO2 75 mmHg (35-45) H* 12/31/16 03:55 ABG pO2 102 mmHg (85-104) 12/31/16 03:55 ABG O2 Saturation 98 % (95-98) 12/31/16 03:55 PT/INR, D-dimer PT 13.5 Seconds (9.4-12.1) H 12/25/16 17:12 D-Dimer 1204 ng/mLFEU (0-500) H 12/27/16 00:48 - VTE Reasons for not Prescribing Prophylaxis: Not indicated-Anticoagulated or INR therapeutic Consult Discharge Plan - Plan Referrals: Sandi Noland CNP [Primary Care Provider] - 01/05/17 10:40 am Sandy Bright CNP [Advanced Practice Nurse] - 01/07/17 3:30 pm Cyrus Ferris MD [Partnered Physician] - 01/08/17 2:30 pm
--- NOTE | 2016-12-31 14:45 | Invasive Diagnostic Lab ---
Name: Gold Stone Date of Study: 12/31/2016 Date: 1955 Ht: 191.0 cm /75.2 in Medical Record#: [id number] Age: 61 Wt: 210.1 kg / 463.24 lb Account/Order#: [id number] Gender: Male BSA: 3.14 Order #: [id number] Fluoro Dose: 547 mGy BMI: 57.6 Procedure Physician: Edgar Mccracken MD, FACC Referring MD: Referring MD: Procedures Performed: Transradial LEFT HEART CATH Indications: Non-Stemi Impressions: There is stable one vessel coronary artery disease. The left ventricle is normal and has normal contractility EF 50% Morbid obesity Recommendations: Optimal medical therapy of patient's disease. Aggressive risk factor modification. History/Risk Factors: Renal Disease Diabetes Dyslipidemia Procedure Access obtained in the right Radial artery by percutaneous puncture Complications: None Contrast: Isovue 108ml Closure Device: Manual Compression Hemodynamics: Pressures Site Systolic/ A Wave Diastolic/ V Wave End Diastolic/ Mean HR AO 92 63 76 73 AO 90 55 71 82 AO 105 69 86 84 LV 99 6 26 93 LV 125 34 53 88 AO 0 LV Ventriculography Ejection Method: LV Gram Ejection Fraction: 50% Wall Motion: MATAMOROS Anterobasal Normal Anterolateral Normal Apical: Normal Inferoapical Normal Inferobasal Normal Coronary Dominance: Left Lesion Findings/Interventions * Left Main Coronary Artery The LMCA is angiographically free of disease. * Left Anterior Descending There is a 15% stenosis in the Proximal LAD. * Circumflex The Circumflex is angiographically free of disease. The 1st Marginal is angiographically free of disease. The Left PDA is angiographically free of disease. * Right Coronary Artery The RCA is angiographically free of disease. Updated by RT Nadia(R) on 12/31/2016 11:52:40 AM Edgar Mccracken MD, FACC electronically signed on 12/31/2016 2:41:15 PM with status of Final
[2017-01-01] MEDS: Ipratropium/Albuterol Neb 3 ML IH SCH ×6 (04:41→23:05)
[2017-01-01 04:47] LABS: ABG Base Excess 14.5 mEq/L (-2.0 to 3.0); ABG HCO3 42.6 mEQ/L (21-27); ABG Oxygen Saturation 93 % (95-98); ABG PH 7.38 pH Units (7.32-7.45); ABG PO2 68 mmHg (85-104); ABG TCO2 44.8 mEq/L (20-26); Blood Gas FiO2 32 %
[2017-01-01 04:48] LABS: ABG PCO2 72 mmHg (35-45)
[2017-01-01 06:02] LABS: Basophils % 0.4 %; Eosinophils # 0.2 K/mcL (0.0-0.6); Eosinophils % 2.7 %; Hematocrit 39.6 % (37.5-50.1); Hemoglobin 11.7 g/dL (12.9-16.9); Immature Granulocytes % 0.4 % (0-4); Lymphocytes # 1.7 K/mcL (0.6-4.6); Mean Corpuscular HGB Conc 29.5 g/dL (31.6-35.5); Mean Corpuscular Volume 91.5 fL (83.0-100.0); Mean Platelet Volume 10.1 fL (9.4-12.4); Monocytes # 0.9 K/mcL (0.0-1.3); Monocytes % 12.1 %; Neutrophils # 4.8 K/mcL (1.6-8.9); Platelet Count 330 K/mcL (140-400); Red Blood Count 4.33 M/mcL (4.19-5.50); Red Cell Distribution Width 14.3 % (11.5-14.5); Segmented Neutrophils % 62.4 %
[2017-01-01] MEDS: *HR* Heparin 5,000 UNIT/ML VIAL SQ SCH ×3 (06:04→20:38)
[2017-01-01 06:14] LABS: BUN/Creatinine Ratio 41 (6-26); Chloride 100 mEq/L (98-109); Glucose 140 mg/dL (70-99); Osmolality,Calculated 308 (280-300); Sodium 144 mEq/L (136-145); eGFR For African Americans > 60 (> 60); eGFR For Non-African Americans > 60 (> 60)
[2017-01-01 06:15] LABS: Blood Urea Nitrogen 34 mg/dL (8-26)
[2017-01-01 06:16] LABS: Carbon Dioxide 41 mEq/L (19-29)
[2017-01-01] MEDS: Budesonide/Formoterol 160/4.5 MDI IH SCH ×2 (07:38→19:58)
[2017-01-01] MEDS: Insulin LISPRO 300 UNITS/3 ML VIAL SQ SCH ×7 (07:41→20:38)
[2017-01-01] MEDS: Gabapentin 300 MG CAPSULE PO SCH ×3 (08:39→20:37)
[2017-01-01] MEDS: Insulin DETEMIR 100 UNIT/ML X5UNITS SQ SCH ×2 (08:39→20:38)
[2017-01-01] MEDS: FLUoxetine 20 MG CAPSULE PO SCH (08:40)
[2017-01-01] MEDS: Furosemide 40 MG TABLET PO SCH (08:40)
[2017-01-01] MEDS: Aspirin Enteric Coated 81 MG Tablet PO SCH (08:40)
[2017-01-01] MEDS: Isosorbide MONOnitrate (24 HR) 30 MG TAB.ER.24H PO SCH (08:40)
[2017-01-01] MEDS: *HR* OxyCODONE Immed Rel 5 MG TABLET PO SCH ×4 (08:40→20:37)
[2017-01-01] MEDS: Nystatin POWDER 30 GM BOTTLE TP SCH ×2 (08:43→20:38)
--- NOTE | 2017-01-01 10:05 | Cardiology Progress Note ---
Date of Encounter: 01/01/17 Time of Encounter: 08:00 Assessment and Plan (1) Elevated troponin Current Visit: Yes Status: Acute Per cardiology: -Elevated troponin with downward trend in the setting of LUISITO; likely NSTEMI type II demand ischmia-nondiagnostic for ACS. -No acute ischemic ECG changes noted, patient is chest pain free. -TTE 12/26/16: poor quality study due to body habitus, LV function appears reduced. -Patient did not have ischemic evaluation at [facility] during hospitalization in 2016. -Patient dose have multiple risk factors for CAD including HTN, HLD, DM, and 35 pack year history of smoking. -Patient is severely deconditioned at baseline with very little activity as well. -On asa, statin, beta abhishek. -LHC yesterday with LVEF 50%, 15% stenosis proximal LAD, all other vessels angiographically free of disease. -Right radial access site without hematoma or echhymosis. -Right radial acces site instructions reviewed with patient. Patient states understanding. BP hypertensive today, amlodipine added for better BP control. Can consider further titration of antihypertensives. -Cardiology will sign off and will follow in outpatient setting. Follow up set. (2) LUISITO (acute kidney injury) Current Visit: Yes Status: Acute Per cardiology: -creatinine 0.83. today. -Management per primary service. (3) Dyspnea Current Visit: Yes Status: Acute Per cardiology: -Dyspnea likely mutltfactorial in etiology. -Suspect symptoms largely secondary to severe, untreated COSMO and OHS -Bilateral LE negative for acute thrombus; noted to be a difficult study due to body habitus. VQ scan showed low probability for PE. -On NC this morning, States shortness of breath has improved. -Appreciate Pulm. recommendations. Qualifiers: Dyspnea type: shortness of breath Qualified Code(s): R06.02 - Shortness of breath; R06.00 - Dyspnea, unspecified; R06.01 - Orthopnea Discussion w patient/family: The assessment and plan as outlined above was discussed with the patient who expressed understanding and agreement. All questions were answered. Thank you for involving us in the care of your patient. Please call with any questions. Discussed and reviewed with . Subjective Principal diagnosis: Elevated troponin/LUISITO Interval history: Patient denies chest pain overnight. Patient states shortness of breath is improved today. Patient denies issues using right wrist. Objective Vital Signs, Last 4 Hours Temp Pulse Resp BP Pulse Ox 01/01/17 08:29 89 92 01/01/17 07:39 20 90 01/01/17 07:11 97.7 F 73 16 160/72 96 General: Conversant, No Apparent Distress HEENT: Atraumatic, Normocephaly, Mucus Membranes Moist Neck: No JVD, Normal carotid pulses Cardiac: Reg Rate and Rhythm, Normal S1 and S2, No Murmur Lungs: Other (Lung sounds diminished throughout) Neuro: Alert and responsive, No focal deficits noted Abdomen: Soft, Non-Tender Skin: No rashes noted on visualized skin, Other (Right radial access site without redness or hematoma. ) Musculoskeletal: No Chest Wall Tenderness Extremities: No Clubbing, No Cyanosis, Normal Pulses, Other (1+ bilateral lower extremity pitting edema. ) Results 01/01/17 05:03 01/01/17 05:03 Lab Results Active Medications Albuterol Sulfate (Proventil Neb) 2.5 mg IH Q2H PRN; Protocol PRN Reason: Shortness Of Breath/Wheezing Stop: 06/30/17 04:11 Albuterol/Ipratropium (Duoneb) 3 ml IH [id number] [facility] Stop: 06/28/17 20:01 Last Admin: 01/01/17 07:38 Dose: 3 ml Amlodipine Besylate (Norvasc) 5 mg PO DAILY [facility] PRN Reason: Protocol Stop: 07/03/17 09:01 Aspirin (Aspirin Ec) 81 mg PO DAILY [facility] Stop: 07/01/17 09:01 Last Admin: 01/01/17 08:40 Dose: 81 mg Atorvastatin Calcium (Lipitor) 40 mg PO HS [facility] Stop: 06/26/17 21:01 Last Admin: 12/31/16 20:53 Dose: 40 mg Budesonide/Formoterol Fumarate (Symbicort) 2 puff IH BIDR [facility] PRN Reason: Protocol Stop: 06/29/17 10:01 Last Admin: 01/01/17 07:38 Dose: 2 puff Carvedilol (Coreg) 25 mg PO BIDWM [facility] PRN Reason: Protocol Stop: 06/30/17 17:01 Last Admin: 01/01/17 08:39 Dose: 25 mg Dextrose/Water (Dextrose 50% (Syg)) 25 ml IVP Q15MIN PRN PRN Reason: Hypoglycemia Stop: 06/27/17 13:26 Dextrose/Water (Dextrose 50% (Syg)) 25 ml IVP AD PRN PRN Reason: Hypoglycemia Stop: 06/29/17 09:00 Fluoxetine HCl (Prozac) 20 mg PO DAILY [facility] PRN Reason: Protocol Stop: 06/27/17 09:01 Last Admin: 01/01/17 08:40 Dose: 20 mg Furosemide (Lasix) 40 mg PO DAILY [facility] Stop: 07/03/17 09:01 Last Admin: 01/01/17 08:40 Dose: 40 mg Gabapentin (Neurontin) 300 mg PO TID [facility] Stop: 06/26/17 21:01 Last Admin: 01/01/17 08:39 Dose: 300 mg Glucagon (Glucagen) 1 mg IM ONCE PRN PRN Reason: Hypoglycemia Stop: 06/29/17 09:00 Glucose (Gluctose) 15 gm PO ONCE PRN PRN Reason: Hypoglycemia Stop: 06/29/17 09:00 Glucose (Gluctose) 30 gm PO ONCE PRN PRN Reason: Hypoglycemia Stop: 06/29/17 09:00 Heparin Sodium (Porcine) (Heparin) 5,000 unit SQ Q8HCO [facility] Stop: 06/27/17 14:01 Last Admin: 01/01/17 06:04 Dose: 5,000 unit Dextrose (Dextrose 5%) 1,000 mls @ 100 mls/hr IVC .Q10H PRN PRN Reason: HYPOGLYCEMIA Stop: 06/29/17 09:00 Insulin Detemir (Levemir) 50 unit SQ HS [facility] Stop: 06/27/17 21:01 Last Admin: 12/31/16 20:52 Dose: 50 unit Insulin Detemir (Levemir) 55 unit SQ QAM [facility] Stop: 07/01/17 09:01 Last Admin: 01/01/17 08:39 Dose: 55 unit Insulin Human Lispro (Humalog) 10 units 0.05 units/kg (10 units) SQ TIDWM [facility] Stop: 06/29/17 12:01 Last Admin: 01/01/17 08:43 Dose: 10 units Insulin Human Lispro (Humalog) 0 units SQ TIDAC [facility] PRN Reason: Protocol Stop: 06/29/17 11:31 Last Admin: 01/01/17 07:41 Dose: Not Given Insulin Human Lispro (Humalog) 0 units SQ HS [facility] PRN Reason: Protocol Stop: 06/29/17 21:01 Last Admin: 12/31/16 21:40 Dose: Not Given Isosorbide Mononitrate (Imdur) 30 mg PO DAILY [facility] Stop: 06/27/17 11:16 Last Admin: 01/01/17 08:40 Dose: 30 mg Naloxone HCl (Narcan) 0.4 mg IVP Q2MIN PRN PRN Reason: Opioid Reversal Stop: 06/26/17 20:55 Nystatin (Nystop) 1 appl TP BID [facility] Stop: 07/01/17 21:01 Last Admin: 01/01/17 08:43 Dose: 1 appl Ondansetron HCl (Zofran) 4 mg IVP Q6HR PRN; Protocol PRN Reason: Nausea And Vomiting Stop: 07/02/17 12:12 Oxycodone HCl (Roxicodone) 5 mg PO QID [facility] Stop: 06/26/17 21:01 Last Admin: 01/01/17 08:40 Dose: 5 mg Laboratory Tests 01/01/17 01/01/17 01/01/17 04:40 05:03 05:03 Hgb 11.7 L ABG pCO2 72 H* Creatinine 0.83 - Imaging and Cardiology Chest Xray: report reviewed Echo: report reviewed Cardiac cath: report reviewed - EKG Interpretation EKG results cardiology: other (Telemetry reviewed with average HR 74, sinus rhythm. PVCs, PACs, and one run of atrial tachycardia (7 beats) noted.) - VTE Reasons for not Prescribing Prophylaxis: Not indicated-Anticoagulated or INR therapeutic Consult Discharge Plan - Plan Referrals: Sandi Noland CNP [Primary Care Provider] - 01/05/17 10:40 am Sandy Bright CNP [Advanced Practice Nurse] - 01/07/17 3:30 pm Cyrus Ferris MD [Partnered Physician] - 01/08/17 2:30 pm
[2017-01-01] MEDS: amLODIPine 5 MG TABLET PO SCH (10:45)
--- NOTE | 2017-01-01 11:39 | Discharge Summary ---
Date of Encounter: 01/01/17 Time of Encounter: 08:00 - Discharge Diagnosis (1) Non-STEMI (non-ST elevated myocardial infarction) Priority: Primary Status: Acute Comments: Non-ST elevation ID - type II demand ischemia Risk factors include HTN, HLD, DM, [id number] history of smoking, physical deconditioning continue ASA, beta abhishek, Statin, Imdur, Lasix Troponin - 0.36 EKG - no acute ischemic changes LHC - stable one-vessel coronary artery disease, LVEF 50%, morbid obesity Echo - technically difficult and poor quality study, however shows possibly dilated left ventricle with decreased systolic function, mild diastolic dysfunction BN peptide - 318 Continue BiPAP at night and O2 via nasal cannula continuously at home Follow up with PCP and pulmonology as outpatient (2) Acute kidney injury Priority: Primary Status: Acute Comments: Acute kidney injury on CKD stage III - secondary to dehydration and CHF - improved Creatinine improved - 0.8, back to baseline Avoid nephrotoxic agents (3) COPD exacerbation Priority: Primary Status: Acute Comments: Acute on chronic hypoxic respiratory failure with hypercapnia - secondary to COPD exacerbation, obstructive hypoventilation and suspected obstructive sleep apnea Continue BiPAP at night and PRN, continue O2 2 L via nasal cannula continuous use, Continue DuoNeb, Symbicort Pulmonology outpatient follow-up (4) Suspected sleep apnea Priority: Primary Status: Chronic Comments: Continue BiPAP at night and PRN Outpatient pulmonology follow-up (5) CHF (congestive heart failure) Priority: Primary Status: Chronic Comments: Acute diastolic CHF exacerbation - now improved BNP - 318 Continue Imdur, Coreg and Lasix, fluid restriction Echocardiogram reviewed, C - stable one-vessel coronary artery disease, LVEF 50% Qualifiers: Congestive heart failure type: diastolic Congestive heart failure chronicity: acute on chronic Qualified Code(s): I50.33 - Acute on chronic diastolic (congestive) heart failure (6) Obesity hypoventilation syndrome Priority: Primary Status: Chronic Comments: Continue BiPAP at night and PRN Outpatient pulmonology follow-up (7) DMII (diabetes mellitus, type 2) Priority: Secondary Status: Chronic Comments: Diabetes mellitus type 2, insulin-dependent, hyperglycemia Continue home meds Qualifiers: Diabetes mellitus complication status: with kidney complications Diabetes mellitus complication detail: with chronic kidney disease Diabetes mellitus intermediate project manager insulin use: with long-term use Chronic kidney disease stage: stage 3 (moderate) Qualified Code(s): E11.22 - Type 2 diabetes mellitus with diabetic chronic kidney disease; N18.3 - Chronic kidney disease, stage 3 ( moderate); Z79.4 - extermination inspector (current) use of insulin (8) Morbid obesity with BMI of 50.0-59.9, adult Priority: Secondary Status: Chronic Comments: BMI 62.5 (9) Physical deconditioning Priority: Secondary Status: Chronic Comments: Will need physical therapy - Discharge Medications Home Medications: Chlorthalidone 25 mg PO DAILY 07/08/15 [History] Ergocalciferol (VITAMIN D2) [Vitamin D2 (50,000 UNIT)] 50,000 unit PO QWEEK [History] FLUoxetine HCl [Prozac] 20 mg PO DAILY 07/08/15 [History] Furosemide [Lasix] 40 mg PO DAILY PRN 07/08/15 [History] Atorvastatin [Lipitor] 40 mg PO HS 12/25/16 [History] Gabapentin [Neurontin] 300 mg PO TID 12/25/16 [History] Insulin Glargine,Hum.rec.anlog [Lantus Solostar] 25 unit SQ QPM 12/25/16 [ History] Insulin Glargine,Hum.rec.anlog [Lantus Solostar] 35 unit SQ QAM 12/25/16 [ History] Insulin LISPRO [HumaLOG] 0 unit SQ TIDWM 12/25/16 [History] Metformin HCl [Metformin HCl ER] 500 mg PO BID 12/25/16 [History] Metoprolol [Lopressor] 100 mg PO BID 12/25/16 [History] OxyCODONE Immed Rel [Roxicodone 5 MG] 5 mg PO QID 12/25/16 [History] Allergies/Adverse Reactions: 3 Allergy/AdvReac Type Severity Reaction Status Date / Time No Known Allergies Allergy Verified 07/08/15 12:30 Procedures/tests Complete & Pending: Procedures Performed prior 72 hours Category Date Time Status CL Cardiac Catheterization [CL] Routine Construction Carpenters Helper 12/31/16 09:35 Completed Date of admission: 12/26/16 06:54 Primary care physician: Sandi Noland CNP Consults: 12/27/16 08:27 Consult to Pulmonology [CONS] Routine Consulting Provider: Pulm [facility] Reason for Consult: Acute hypercapnic respiratory failure Call Completed: Yes 12/29/16 07:58 Consult to Cardiac Rehabilitation-Phase1 [CONS] Routine Comment: Reason for Consult: NSTEMI Call Completed: No 12/31/16 14:28 Consult to Occupational Therapy [CONS] Routine Comment: Evaluate, develop and implement POC Reason for Consult: deconditioning during hosptial stay. Please evaluate for homegoing needs. Hope to discharge tomorrow Consult to Physical Therapy [CONS] Routine Comment: Evaluate, develop and implement POC Reason for Consult: deconditioning during hosptial stay. Please evaluate for homegoing needs. Hope to discharge tomorrow 12/31/16 14:37 Consult to Glassie [CONS] Routine Reason for SW Consult: Needs to have respiratory DME set up, possible home health or rehab needs Anticipated date of discharge: 01/01/17 - Patient Status Disposition: Home Health Service Condition: Fair Functional capacity at discharge: wheelchair bound Overall status at discharge: patient is progressing back to baseline - Discharge Instructions Instructions: Myocardial Infarction (DC), Heart Failure (DC), Acute Respiratory Distress Syndrome (DC), Low Fat Diet (DC), Heart Healthy Diet (DC), Seasoning Without Salt (DC), Shopping for a Healthy Diet (DC), Diabetes Mellitus Type 2 in Adults (DC), Using Oxygen at Home (DC), Weight Management (DC ), Chronic Obstructive Pulmonary Disease (DC), Chronic Hypertension (DC), DASH Eating Plan (DC), Low Sodium Diet (DC), Fluid Restriction (DC), Hypoxia (GEN) Follow Up With: Sandi Noland CNP [Primary Care Provider] - 01/05/17 10:40 am Sandy Bright CNP [Advanced Practice Nurse] - 01/07/17 3:30 pm Cyrus Ferris MD [Partnered Physician] - 01/08/17 2:30 pm Gumaro Ocampo MD [Partnered Physician] - Additional Instructions: - Advised to continue BiPAP and O2 via nasal cannula - Advised to follow up with pulmonology and primary care physician - Return if symptoms worsen - Diet and Activity Activity: as per physical therapy, increase activity as tolerated, wear oxygen at all times Diet: diabetic diet, low fat, low cholesterol, low salt diet Hospital course: Mr. Stone is a 61 year old male - Time Spent with Patient Total time spent providing and/or coordinating discharge services: Greater than 30 minutes - Constitutional Vitals: Temp Pulse Resp BP Pulse Ox 97.9 F 76 18 138/70 93 01/01/17 11:21 01/01/17 11:21 01/01/17 11:21 01/01/17 11:21 01/01/17 11:21 General appearance: Present: cooperative, A&O X 3, morbidly obese, pleasant, no acute distress, answers questions appropriately - Head Head exam: Present: atraumatic - Eye Eye exam: Present: EOMI - ENT ENT exam: Present: mucous membranes moist - Respiratory Respiratory exam: Present: decreased breath sounds (Slightly decreased in both bases). Absent: rales, rhonchi, wheezes, tachypnea - Cardiovascular Cardiovascular exam: Present: RRR, +S1, +S2 - GI/Abdominal GI/Abdominal exam: Present: distended (Obese), soft. Absent: firm, guarding, tenderness - Extremities Exam Extremities exam: Present: pedal edema (Bilateral lower leg edema 3+ pitting - improved, mild stasis dermatitis), radial pulses palpable and symmetrical. Absent: cyanotic - Neurological Exam Neurological exam: Present: alert, oriented X3, no focal deficits - VTE Reasons for not Prescribing Prophylaxis: Not indicated-Anticoagulated or INR therapeutic
--- NOTE | 2017-01-01 11:53 | Physician Discharge Referral ---
Home Health/Hosp Referral Info Transfer to: Home Health Provider in Charge Post Discharge: PCP - Diagnosis (1) Non-STEMI (non-ST elevated myocardial infarction) Priority: Primary Status: Acute (2) Acute kidney injury Priority: Primary Status: Acute (3) COPD exacerbation Priority: Primary Status: Acute (4) Suspected sleep apnea Priority: Primary Status: Chronic (5) CHF (congestive heart failure) Priority: Primary Status: Chronic (6) Obesity hypoventilation syndrome Priority: Primary Status: Chronic (7) DMII (diabetes mellitus, type 2) Priority: Secondary Status: Chronic (8) Morbid obesity with BMI of 50.0-59.9, adult Priority: Secondary Status: Chronic (9) Physical deconditioning Priority: Secondary Status: Chronic - Respiratory Orders Oxygen / L per min (2 L) Smoking Cessation: Smoking cessation has been advised. For more information, call the [place] Tobacco Quit Line at 6-538-AZNB-NOW. - Diet/Nutrition Diet/Nutrition Orders: No Added Salt (SHEELA), Cardiac - Activity Activity Orders: Walker - Services Needed Following services are medically necessary services: Home Health Aide, Physical Therapy, Occupational Therapy - Transfer Medications Home Medications: Chlorthalidone 25 mg PO DAILY 07/08/15 [History] Ergocalciferol (VITAMIN D2) [Vitamin D2 (50,000 UNIT)] 50,000 unit PO QWEEK [History] FLUoxetine HCl [Prozac] 20 mg PO DAILY 07/08/15 [History] Furosemide [Lasix] 40 mg PO DAILY PRN 07/08/15 [History] Atorvastatin [Lipitor] 40 mg PO HS 12/25/16 [History] Gabapentin [Neurontin] 300 mg PO TID 12/25/16 [History] Insulin Glargine,Hum.rec.anlog [Lantus Solostar] 25 unit SQ QPM 12/25/16 [ History] Insulin Glargine,Hum.rec.anlog [Lantus Solostar] 35 unit SQ QAM 12/25/16 [ History] Insulin LISPRO [HumaLOG] 0 unit SQ TIDWM 12/25/16 [History] Metformin HCl [Metformin HCl ER] 500 mg PO BID 12/25/16 [History] Metoprolol [Lopressor] 100 mg PO BID 12/25/16 [History] OxyCODONE Immed Rel [Roxicodone 5 MG] 5 mg PO QID 12/25/16 [History] Allergies/Adverse Reactions: 3 Allergy/AdvReac Type Severity Reaction Status Date / Time No Known Allergies Allergy Verified 07/08/15 12:30 Certification: Further, I certify that my clinical findings support that this patient is homebound (i.e. absences from home require considerable and taxing effort and are for medical reasons or quaker services or infrequently or short duration when for other reasons) because: Homebound Reason: Patient requires assistance of a person or device to safely leave home Attestation: My signature below is to certify that this patient is under my care and that I, or nurse practitioner, or a physician's catering administrative assistant working with me, has a face-to -face encounter with this patient.
--- NOTE | 2017-01-01 12:22 | Physician Discharge Referral ---
ExtendedCare Referral Info Provider in Charge after Transfer: PCP Institutional Level of Care: Skilled - Diagnosis (1) Non-STEMI (non-ST elevated myocardial infarction) Priority: Primary Status: Acute (2) Acute kidney injury Priority: Primary Status: Acute (3) COPD exacerbation Priority: Primary Status: Acute (4) Suspected sleep apnea Priority: Primary Status: Chronic (5) CHF (congestive heart failure) Priority: Primary Status: Chronic (6) Obesity hypoventilation syndrome Priority: Primary Status: Chronic (7) DMII (diabetes mellitus, type 2) Priority: Secondary Status: Chronic (8) Morbid obesity with BMI of 50.0-59.9, adult Priority: Secondary Status: Chronic (9) Physical deconditioning Priority: Secondary Status: Chronic Prognosis: Fair Aware of Diagnosis: Patient, Family Aware of Prognosis: Patient, Family - Transfer Medications Prescriptions: Ipratropium/Albuterol Neb [Duoneb] 3 ml IH [id number] PRN #30 inh PRN Reason: Shortness Of Breath/Wheezing Albuterol Neb [Proventil Neb] 2.5 mg IH Q2H PRN #1 inh PRN Reason: Shortness Of Breath/Wheezing amLODIPine [Norvasc] 5 mg PO DAILY #30 tab Aspirin Enteric Coated [Aspirin EC] 81 mg PO DAILY #30 Atorvastatin [Lipitor] 40 mg PO HS #30 Budesonide/Formoterol 160/4.5 [Symbicort 160/4.5] 2 puff IH BIDR 30 Days Carvedilol [Coreg] 25 mg PO BIDWM 30 Days Furosemide [Lasix] 40 mg PO DAILY PRN #30 PRN Reason: Edema Nystatin POWDER [Nystop] 1 appl TP BID #1 bottle Home Medications: Ergocalciferol (VITAMIN D2) [Vitamin D2 (50,000 UNIT)] 50,000 unit PO QWEEK [History] FLUoxetine HCl [Prozac] 20 mg PO DAILY 07/08/15 [History] Gabapentin [Neurontin] 300 mg PO TID 12/25/16 [History] Insulin Glargine,Hum.rec.anlog [Lantus Solostar] 25 unit SQ QPM 12/25/16 [ History] Insulin Glargine,Hum.rec.anlog [Lantus Solostar] 35 unit SQ QAM 12/25/16 [ History] Insulin LISPRO [HumaLOG] 0 unit SQ TIDWM 12/25/16 [History] Metformin HCl [Metformin HCl ER] 500 mg PO BID 12/25/16 [History] OxyCODONE Immed Rel [Roxicodone 5 MG] 5 mg PO QID 12/25/16 [History] Albuterol Neb [Proventil Neb] 2.5 mg IH Q2H PRN #1 inh 01/01/17 [Rx] Aspirin Enteric Coated [Aspirin EC] 81 mg PO DAILY #30 01/01/17 [Rx] Atorvastatin [Lipitor] 40 mg PO HS #30 01/01/17 [Rx] Budesonide/Formoterol 160/4.5 [Symbicort 160/4.5] 2 puff IH BIDR 30 Days [Rx] Carvedilol [Coreg] 25 mg PO BIDWM 30 Days 01/01/17 [Rx] Furosemide [Lasix] 40 mg PO DAILY PRN #30 01/01/17 [Rx] Ipratropium/Albuterol Neb [Duoneb] 3 ml IH [id number] PRN #30 inh 01/01/17 [Rx] Nystatin POWDER [Nystop] 1 appl TP BID #1 bottle 01/01/17 [Rx] amLODIPine [Norvasc] 5 mg PO DAILY #30 tab 01/01/17 [Rx] Allergies/Adverse Reactions: 3 Allergy/AdvReac Type Severity Reaction Status Date / Time No Known Allergies Allergy Verified 07/08/15 12:30 - Respiratory Orders Oxygen / L per min Smoking Cessation: Smoking cessation has been advised. For more information, call the [place] Tobacco Quit Line at 1-920-UFEZ-NOW. - Lab Orders Lab Orders: CBC - Ancillary Orders May use pressure relief devices daily prn - Advance Directives Code Status: Full Code - Mobility Orders Ambulate - Rehabiliation Orders Rehab Potential: Good Rehab Orders: ROM Exercises, Evaluation for Physical Therapy, Evaluation for Occupational Therapy - Treatments Skin tear care topically daily PRN per policy - Diet Orders Cardiac CERTIFICATION: I certify that the transfer of the above named patient to an Extended Care Facility is necessary for the continuing treatment of the diagnosis listed. The above information is true and accurate reflection of patient's current condition. Confidential - Redisclosure prohibited without a patient's written consent.
[2017-01-02] MEDS: Ipratropium/Albuterol Neb 3 ML IH SCH ×5 (04:09→19:41)
[2017-01-02] MEDS: *HR* Heparin 5,000 UNIT/ML VIAL SQ SCH ×2 (06:26→15:59)
[2017-01-02] MEDS: Insulin LISPRO 300 UNITS/3 ML VIAL SQ SCH ×6 (07:33→16:01)
[2017-01-02] MEDS: Isosorbide MONOnitrate (24 HR) 30 MG TAB.ER.24H PO SCH (07:35)
[2017-01-02] MEDS: Furosemide 40 MG TABLET PO SCH (07:35)
[2017-01-02] MEDS: FLUoxetine 20 MG CAPSULE PO SCH (07:36)
[2017-01-02] MEDS: Aspirin Enteric Coated 81 MG Tablet PO SCH (07:36)
[2017-01-02] MEDS: amLODIPine 5 MG TABLET PO SCH (07:36)
[2017-01-02] MEDS: *HR* OxyCODONE Immed Rel 5 MG TABLET PO SCH ×3 (07:36→15:59)
[2017-01-02] MEDS: Nystatin POWDER 30 GM BOTTLE TP SCH (07:37)
[2017-01-02] MEDS: Gabapentin 300 MG CAPSULE PO SCH ×2 (07:37→15:00)
[2017-01-02] MEDS: Insulin DETEMIR 100 UNIT/ML X5UNITS SQ SCH (07:55)
[2017-01-02] MEDS: Budesonide/Formoterol 160/4.5 MDI IH SCH ×2 (08:21→19:41)
--- NOTE | 2017-01-02 10:34 | Internal Med Progress Note ---
Date of Encounter: 01/02/17 Time of Encounter: 08:00 - Assessment and plan (1) Non-STEMI (non-ST elevated myocardial infarction) Current Visit: Yes Status: Acute Assessment and plan: Non-ST elevation MO - type II demand ischemia Risk factors include HTN, HLD, DM, 48-goha-azsy history of smoking, physical deconditioning Troponin elevation, peak troponin at 0.36 EKG - no acute ischemic changes LHC - stable one-vessel coronary artery disease, LVEF 50% continue ASA, beta abhishek, Statin Echocardiogram - technically difficult and poor quality study, however shows possibly dilated left ventricle with decreased systolic function, mild diastolic dysfunction Stable for discharge today (2) Acute kidney injury Current Visit: Yes Status: Acute Assessment and plan: Acute kidney injury on CKD stage III - secondary to dehydration and CHF - resolved Creatinine improved - 0.83, seems to be back to baseline Avoid nephrotoxic agents (3) COPD exacerbation Current Visit: Yes Status: Acute Assessment and plan: Acute on chronic hypoxic respiratory failure with hypercapnia - secondary to COPD exacerbation, obstructive hypoventilation and suspected obstructive sleep apnea - now improved Continue BiPAP at night and PRN, Continue DuoNeb breathing treatment, O2 via nasal cannula, Symbicort Follow-up with pulmonology as outpatient (4) Suspected sleep apnea Current Visit: Yes Status: Chronic Assessment and plan: Outpatient follow-up for sleep study, pulmonology follow-up (5) CHF (congestive heart failure) Current Visit: Yes Status: Chronic Assessment and plan: Probable LV diastolic dysfunction CHF LVEF 50% - mild exacerbation with bilateral leg edema now improved BNP - 318 Continue Imdur, Coreg and Lasix, fluid restriction Echocardiogram reviewed Qualifiers: Congestive heart failure type: diastolic Congestive heart failure chronicity: acute on chronic Qualified Code(s): I50.33 - Acute on chronic diastolic (congestive) heart failure (6) Obesity hypoventilation syndrome Current Visit: Yes Status: Chronic Assessment and plan: Continue BiPAP at night and PRN (7) DMII (diabetes mellitus, type 2) Current Visit: Yes Status: Chronic Assessment and plan: Diabetes mellitus type 2, insulin-dependent, hyperglycemia Continue insulin sliding scale, Levemir, glucose checks Qualifiers: Diabetes mellitus complication status: with kidney complications Diabetes mellitus complication detail: with chronic kidney disease Diabetes mellitus assistant terminal manager insulin use: with assistant terminal manager use Chronic kidney disease stage: stage 3 (moderate) Qualified Code(s): E11.22 - Type 2 diabetes mellitus with diabetic chronic kidney disease; N18.3 - Chronic kidney disease, stage 3 ( moderate); Z79.4 - snf (current) use of insulin (8) Morbid obesity with BMI of 50.0-59.9, adult Current Visit: Yes Status: Chronic Assessment and plan: BMI 63.2 (9) Physical deconditioning Current Visit: Yes Status: Chronic Assessment and plan: Consult physical therapy - Time Spent With Patient 25 - 35 minutes - Subjective Interval history: Examined this morning. Patient awake and alert. Not in any distress. Doing well on BiPAP at night. Continue O2 via nasal cannula during the day. Patient denies chest pain and denies shortness of breath. Good urine output. Hypercapnia is persistent which is likely chronic. No other acute events or complaints. Hemodynamically stable. LHC revealed stable one-vessel coronary artery disease with LVEF 50%. Tolerating oral diet well. Needs assistance with ambulation. No fever. No other acute events or complaints. Stable for discharge today. - Constitutional Vitals: Temp Pulse Resp BP Pulse Ox 97.6 F 84 16 152/84 95 01/02/17 07:35 01/02/17 07:35 01/02/17 08:21 01/02/17 07:35 01/02/17 08:21 General appearance: Present: cooperative, A&O X 3, morbidly obese, pleasant, no acute distress, answers questions appropriately - Head Head exam: Present: atraumatic - Eye Eye exam: Present: EOMI - ENT ENT exam: Present: mucous membranes moist - Respiratory Respiratory exam: Present: decreased breath sounds (Slightly decreased in both bases). Absent: accessory muscle use, rales, rhonchi, wheezes, tachypnea - Cardiovascular Cardiovascular exam: Present: RRR, +S1, +S2 - GI/Abdominal GI/Abdominal exam: Present: distended (Obese), soft. Absent: firm, guarding, tenderness - Extremities Exam Extremities exam: Present: pedal edema (Bilateral lower leg edema 3+ pitting, stasis dermatitis). Absent: cyanotic - Neurological Exam Neurological exam: Present: alert, oriented X3, no focal deficits Internal Medicine: Result - Labs CBC & Chem 7: 01/01/17 05:03 01/01/17 05:03 - ABG Interpretation ABG results: ABG ABG pH 7.38 pH Units (7.32-7.45) 01/01/17 04:40 ABG pCO2 72 mmHg (35-45) H* 01/01/17 04:40 ABG pO2 68 mmHg (85-104) L 01/01/17 04:40 ABG O2 Saturation 93 % (95-98) L 01/01/17 04:40 PT/INR, D-dimer PT 13.5 Seconds (9.4-12.1) H 12/25/16 17:12 D-Dimer 1204 ng/mLFEU (0-500) H 12/27/16 00:48 - VTE Reasons for not Prescribing Prophylaxis: Not indicated-Anticoagulated or INR therapeutic Consult Discharge Plan - Plan Instructions: Myocardial Infarction (DC), Heart Failure (DC), Acute Respiratory Distress Syndrome (DC), Low Fat Diet (DC), Heart Healthy Diet (DC), Seasoning Without Salt (DC), Shopping for a Healthy Diet (DC), Diabetes Mellitus Type 2 in Adults (DC), Using Oxygen at Home (DC), Weight Management (DC ), Chronic Obstructive Pulmonary Disease (DC), Chronic Hypertension (DC), DASH Eating Plan (DC), Low Sodium Diet (DC), Fluid Restriction (DC), Hypoxia (GEN) Additional Instructions: - Advised to continue BiPAP and O2 via nasal cannula - Advised to follow up with pulmonology and primary care physician - Return if symptoms worsen Addendum: Maintain 1.5 liter fluid restriction per Dr[address] Ronquillo/ [place] Referrals: Sandi Noland CNP [Primary Care Provider] - 01/05/17 10:40 am Gumaro Ocampo MD [Partnered Physician] - Sandy Bright CNP [Advanced Practice Nurse] - 01/07/17 3:30 pm Cyrus Ferris MD [Partnered Physician] - 01/08/17 2:30 pm Prescriptions: Ipratropium/Albuterol Neb [Duoneb] 3 ml IH [id number] PRN #30 inh PRN Reason: Shortness Of Breath/Wheezing Albuterol Neb [Proventil Neb] 2.5 mg IH Q2H PRN #1 inh PRN Reason: Shortness Of Breath/Wheezing amLODIPine [Norvasc] 5 mg PO DAILY #30 tab Aspirin Enteric Coated [Aspirin EC] 81 mg PO DAILY #30 Atorvastatin [Lipitor] 40 mg PO HS #30 Budesonide/Formoterol 160/4.5 [Symbicort 160/4.5] 2 puff IH BIDR 30 Days Carvedilol [Coreg] 25 mg PO BIDWM 30 Days Furosemide [Lasix] 40 mg PO DAILY PRN #30 PRN Reason: Edema Nystatin POWDER [Nystop] 1 appl TP BID #1 bottle OxyCODONE Immed Rel [Roxicodone 5 MG] 5 mg PO QID #10
[2017-01-02 11:13] VITALS: BP 140/72
== END 2017-01-02 20:45 | disposition home health service (06) | DRG 280 ==
LOC: 2NENU 16:24 → EMEROO 16:24 → 2NENU 19:54 → 2NNU 12-26 18:37
PROVIDERS: ADMIT Nurse Practitioner Family; ATTEND Internal Medicine